=== PATIENT | female | born 1935 | race Caucasian/White ===

== ENCOUNTER 2016-07-13 10:44 | Emergency (ER) | payer MEDICARE ==
[2016-07-13 10:51] VITALS: BP 113/73
[2016-07-13] MEDS ORDERED: oxyCODONE TAB* 5 MG TAB PO ONE (12:50)
[2016-07-13 13:28] LABS: Urine Bacteria Absent (Absent); Urine Bilirubin Negative (Negative); Urine Glucose Negative (Negative); Urine Nitrite Negative (Negative)
--- NOTE | 2016-07-13 13:41 | RAD ---
Indication: Lumbar back pain acute on chronic affecting ambulation. Unknown for recent injury. Anticoagulated. Comparison: March 03, 2014 CT. Technique: Noncontrast CT lumbar sacral spine. Multiplanar reformation. 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 Minimal grade 1 degenerative L3-L4 retrolisthesis without significant change. Ankylosis at the L4-L5 disc level. Reference sagittal reformatted series there is an acute nondisplaced transverse fracture through the inferior aspect of the L4 vertebral body without definitive involvement of the posterior elements. Predisposing decreased bone density and 3.1 x 3.1 x 2.8 cm osseous hemangioma in the L4 vertebral body. No additional fracture evident. Small associated paravertebral hematoma RIGHT anterolateral measuring up to 0.8 cm AP by 2.6 cm transverse by 2.1 cm cephalocaudal. No additional retroperitoneal hematoma evident within the [id number]. Diffuse advanced degenerative spondylosis and facet joint osteoarthritis. T12-L1: Dorsal disc osteophyte complex results in only mild impression on the ventral margin of the thecal sac. L1-L2: Dorsal spondylitic ridging disc complex results in mild impression on the ventral margin of the thecal sac. L2-L3: Prominent dorsal osteophytosis and facet ligamentous hypertrophic arthropathy results in moderately severe acquired central canal stenosis without change. L3-L4: Prominent dorsal spondylitic ridging disc complexes and posterior element facet ligamentous hypertrophy results in severe acquired central canal stenosis without significant change. Spondylitic ridging and facet ligamentous hypertrophy results in mild bilateral foraminal stenosis. L4-L5: Severe facet ligamentous hypertrophic arthropathy results in mild alteration in the shape of the thecal sac. Mild impression on the ventral margin from RIGHT paracentral to RIGHT foraminal mild disc protrusion. Resulting mild acquired central canal stenosis. Mild RIGHT foraminal stenosis. L5-S1: Ankylosis. Negative for central canal or foraminal stenosis. IMPRESSION: 1. Acute or subacute nondisplaced transverse fracture through the inferior aspect of the L4 vertebral body without definitive involvement of the posterior elements. Predisposing decreased bone density and 3.1 x 3.1 x 2.8 cm osseous hemangioma in the L4 vertebral body. Small associated paravertebral hematoma RIGHT anterolateral measuring up to 0.8 cm AP by 2.6 cm transverse by 2.1 cm cephalocaudal. No additional fracture evident. No additional fracture evident. 2. 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 Results discussed with Dr. Moore 07/13/2016 1:37 PM EDT
[2016-07-13 14:16] LABS: Hematocrit 42 % (35-47); Hemoglobin 14.2 g/dl (12.0-16.0); Mean Corpuscular HGB Conc 34 g/dl (31-36); Mean Corpuscular Hemoglobin 32 pg (27-31); Mean Corpuscular Volume 93 fL (80-97); Mean Platelet Volume 9 um3 (7.4-10.4); Red Cell Distribution Width 13 % (10.5-15); White Blood Count 10.9 10^3/ul (3.5-10.8)
[2016-07-13 14:24] LABS: Add Diff/Slide Review? Slide Review Added; Comments Flag Yes
[2016-07-13 14:30] LABS: Albumin 3.8 g/dL (3.2-5.2); C Reactive Protein 30.06 mg/L (< 5.00); Calcium 9.8 mg/dL (8.6-10.3); EGFR African American 85.8 (>60); EGFR Non-African American 66.7 (>60); Globulin 3.3 g/dL (2-4); Potassium 4.1 mmol/L (3.5-5.0); Total Bilirubin 0.6 mg/dL (0.2-1.0); Total Protein 7.1 g/dL (6.4-8.9)
--- NOTE | 2016-07-13 15:05 | ED ---
I, Oh,Somario, scribed for Donald Moore MD on 07/13/16 at 1255 . Back Pain - HPI Summary HPI Summary: This 81 y/o female presents to ED for acute on chronic lower back pain since 3 days ago. Pain radiates down to BLE. Pain became worse since yesterday, and pt states that she wasn't able to lie down and slept in chair last night. Ambulation and weight bearing make it worse. She also states that knee bending make the pain worse, but pt is sitting in ED room with her knee bent without distress. APAP, tramadol, or flexeril does not make the pain better. Pt was not allowed ot rahel IBP due to her current coumadin. PMHx includes DM, HTN, and afib that is controlled with coumadin. Coumadin's last dosage change was 2 months ago and from 5 mg to 2.5 mg. Primary care involves Dr. Caputo and Robin. No known injury/strain/twist. No back surgery or neck surgery. No osteoporosis. - History of Current Complaint Chief Complaint: EDBackInjuryPain Stated Complaint: LOWER BACK PAIN Hx Obtained From: Patient, Medical Records Onset/Duration: Gradual Onset, Still Present Back Pain Location: Is Discrete @ - low back pain, Radiates To - RLE Pain Intensity: 10 Pain Scale Used: 0-10 Numeric - Allergies/Home Medications Allergies/Adverse Reactions: Allergies Allergy/AdvReac Type Severity Reaction Status Date / Time Nickel Allergy Mild Itching Verified 06/06/15 08:16 Levofloxacin [From Levaquin] Allergy Rash And Verified 06/09/15 10:11 Itching latex Allergy Mild Rash Uncoded 06/06/15 08:26 Home Medications: Home Medications Vitamin B-6 1 tab PO DAILY 07/13/16 [History Confirmed 07/13/16] PMH/Surg Hx/FS Hx/Imm Hx Endocrine/Hematology History: Reports: Hx Diabetes Cardiovascular History: Reports: Hx Hypertension, Other Cardiovascular Problems/ Disorders - Hx HTN Denies: Hx Congestive Heart Failure Respiratory History: Reports: Hx Sleep Apnea - Uses Cpap at home, Other Respiratory Problems/Disorders - sleep apnea GI History: Reports: Hx Gastroesophageal Reflux Disease, Other GI Disorders - Colitis History: Denies: Hx Renal Disease, Other Problems/Disorders Musculoskeletal History: Reports: Hx Arthritis, Other Musculoskeletal History - Left knee replacement Denies: Hx Tendonitis Sensory History: Reports: Hx Cataracts - LEFT EYE CURRENTLY, Hx Contacts or Glasses Denies: Hx Hearing Aid Opthamlomology History: Reports: Hx Cataracts - LEFT EYE CURRENTLY, Hx Contacts or Glasses Neurological History: Reports: Hx Migraine - IN PAST Denies: Other Neuro Impairments/Disorders - Cancer History Hx Chemotherapy: No Hx Radiation Therapy: No - Surgical History Surgery Procedure, Year, and Place: HERNIA [id number]/left knee [id number]/ [id number]/[place]. RIGHT EYE 2006 cataract, Left eye cataract 2012 Hx Anesthesia Reactions: Yes - EXTREME VERTIGO Infectious Disease History: No Infectious Disease History: Denies: Hx Clostridium Difficile, Hx Hepatitis, Hx Human Immunodeficiency Virus (HIV), Hx of Known/Suspected MRSA, Hx Shingles, Hx Tuberculosis, Hx Known/ Suspected VRE, Hx Known/Suspected VRSA, History Other Infectious Disease, Traveled Outside the in Last 30 Days - Family History Known Family History: Negative: Other - Breast CA - Social History Lives: With Family - lives with youngest daughter. Steps at home Alcohol Use: None Hx Substance Use: No Substance Use Type: Reports: None Hx Tobacco Use: No Smoking Status (MU): Never Smoked Tobacco Review of Systems Negative: Fever Positive: Abdominal Pain - secondary to chronic colitis, Diarrhea - secondary to colitis, controlled with immodium Negative: burning, dysuria, frequency Positive: Other - back pain Negative: Weakness All Other Systems Reviewed And Are Negative: Yes Physical Exam - Summary Physical Exam Summary: The patient is well-nourished in no acute distress and in no acute pain. The skin is warm and dry and skin color reflects adequate perfusion. HEENT: The head is normocephalic and atraumatic. The pupils are equal and reactive. The conjunctivae are clear and without drainage. Nares are patent and without drainage. Mouth reveals moist mucous membranes and the throat is without erythema and exudate. The external ears are intact. The ear canals are patent and without drainage. The tympanic membranes are intact. Neck is supple with full range of motion and non-tender. There are no carotid bruits. There is no neck vein distension. Respiratory: Chest is non-tender. Lungs are clear to auscultation and breath sounds are symmetrical and equal. Cardiovascular: Irregular heart rate, controlled. There is no murmur or rub auscultated. There is no peripheral edema. BLE pulse intact. Musculoskeletal: There is no back pain noted. Extremities are non-tender with full range of motion. There is good capillary refill. There is no peripheral edema or calf tenderness elicited. No bony process tenderness over spine. Positive tenderness inferior/superior PSIS. DTR intact on right patellar. No pain with passive knee flexion. Pain with active knee flexion. Negative Ronald's sign. Negative leg raise, ipsilaterally. Neurological: Patient is alert and oriented to person, place and time. The patient has symmetrical motor strength in all four extremities. Cranial nerves are grossly intact. Deep tendon reflexes are symmetrical and equal in all four extremities. Psychiatric: The patient has an appropriate affect and does not exhibit any anxiety or depression. Triage Information Reviewed: Yes Vital Signs On Initial Exam: Initial Vitals Temp Pulse Resp BP Pulse Ox 96.5 F 93 20 116/73 100 07/13/16 10:47 07/13/16 10:47 07/13/16 10:47 07/13/16 10:47 07/13/16 10:47 Vital Signs Reviewed: Yes Neck: Positive: Supple, Nontender Respiratory/Lung Sounds: Positive: Clear to Auscultation, Breath Sounds Present Cardiovascular: Positive: RRR, Pulses are Symmetrical in both Upper and Lower Extremities - [place] Coma Scale Coma Scale Total: 15 Diagnostics - Vital Signs Vital Signs Temp Pulse Resp BP Pulse Ox 07/13/16 10:49 96.5 F 85 20 113/73 100 07/13/16 10:47 96.5 F 93 20 116/73 100 - Laboratory Lab Results: Lab Results 07/13/16 07/13/16 07/13/16 Range/Units 11:45 14:09 14:09 WBC 10.9 H (3.5-10.8) 10^3/ul RBC 4.50 (4.0-5.4) 10^6/ul Hgb 14.2 (12.0-16.0) g/dl Hct 42 (35-47) % MCV 93 (80-97) fL MCH 32 H (27-31) pg MCHC 34 (31-36) g/dl RDW 13 (10.5-15) % Plt Count 186 (150-450) 10^3/ul MPV 9 (7.4-10.4) um3 Neut % (Auto) 44.2 (38-83) % Lymph % (Auto) 50.0 H (25-47) % [place] % (Auto) 5.0 (1-9) % Eos % (Auto) 0.4 (0-6) % Baso % (Auto) 0.4 (0-2) % Absolute Neuts (auto) 4.8 (1.5-7.7) 10^3/ul Absolute Lymphs (auto) 5.4 H (1.0-4.8) 10^3/ul Absolute Monos (auto) 0.5 (0-0.8) 10^3/ul Absolute Eos (auto) 0 (0-0.6) 10^3/ul Absolute Basos (auto) 0 (0-0.2) 10^3/ul Absolute Nucleated RBC 0.01 10^3/ul Nucleated RBC % 0.1 INR (Anticoag Therapy) 2.86 H (0.89-1.11) Sodium (133-145) mmol/L Potassium (3.5-5.0) mmol/L Chloride (101-111) mmol/L Carbon Dioxide (22-32) mmol/L Anion Gap (2-11) mmol/L BUN (6-24) mg/dL Creatinine (0.51-0.95) mg/dL Est GFR ( Amer) (>60) Est GFR (Non-Af Amer) (>60) BUN/Creatinine Ratio (8-20) Glucose (70-100) mg/dL Calcium (8.6-10.3) mg/dL Total Bilirubin (0.2-1.0) mg/dL AST (13-39) U/L ALT (7-52) U/L Alkaline Phosphatase (34-104) U/L C-Reactive Protein (< 5.00) mg/L Total Protein (6.4-8.9) g/dL Albumin (3.2-5.2) g/dL Globulin (2-4) g/dL Albumin/Globulin Ratio (1-3) Urine Color Yellow Urine Appearance Clear Urine pH 6.0 (5-9) Ur Specific [place] 1.013 (1.010-1.030) Urine Protein Negative (Negative) Urine Ketones Negative (Negative) Urine Blood Negative (Negative) Urine Nitrate Negative (Negative) Urine Bilirubin Negative (Negative) Urine Urobilinogen Negative (Negative) Ur Leukocyte Esterase Trace H (Negative) Urine WBC (Auto) Trace(0-5/hpf) (Absent) Urine RBC (Auto) 1+(3-5/hpf) H (Absent) Ur Squamous Epith Cells Present H (Absent) Urine Bacteria Absent (Absent) Urine Glucose Negative (Negative) Urine Ascorbic Acid * H (Negative) 07/13/16 Range/Units 14:09 WBC (3.5-10.8) 10^3/ul RBC (4.0-5.4) 10^6/ul Hgb (12.0-16.0) g/dl Hct (35-47) % MCV (80-97) fL MCH (27-31) pg MCHC (31-36) g/dl RDW (10.5-15) % Plt Count (150-450) 10^3/ul MPV (7.4-10.4) um3 Neut % (Auto) (38-83) % Lymph % (Auto) (25-47) % [place] % (Auto) (1-9) % Eos % (Auto) (0-6) % Baso % (Auto) (0-2) % Absolute Neuts (auto) (1.5-7.7) 10^3/ul Absolute Lymphs (auto) (1.0-4.8) 10^3/ul Absolute Monos (auto) (0-0.8) 10^3/ul Absolute Eos (auto) (0-0.6) 10^3/ul Absolute Basos (auto) (0-0.2) 10^3/ul Absolute Nucleated RBC 10^3/ul Nucleated RBC % INR (Anticoag Therapy) (0.89-1.11) Sodium 133 (133-145) mmol/L Potassium 4.1 (3.5-5.0) mmol/L Chloride 101 (101-111) mmol/L Carbon Dioxide 23 (22-32) mmol/L Anion Gap 9 (2-11) mmol/L BUN 23 (6-24) mg/dL Creatinine 0.82 (0.51-0.95) mg/dL Est GFR ( Amer) 85.8 (>60) Est GFR (Non-Af Amer) 66.7 (>60) BUN/Creatinine Ratio 28.0 H (8-20) Glucose 125 H (70-100) mg/dL Calcium 9.8 (8.6-10.3) mg/dL Total Bilirubin 0.60 (0.2-1.0) mg/dL AST 18 (13-39) U/L ALT 11 (7-52) U/L Alkaline Phosphatase 46 (34-104) U/L C-Reactive Protein 30.06 H (< 5.00) mg/L Total Protein 7.1 (6.4-8.9) g/dL Albumin 3.8 (3.2-5.2) g/dL Globulin 3.3 (2-4) g/dL Albumin/Globulin Ratio 1.2 (1-3) Urine Color Urine Appearance Urine pH (5-9) Ur Specific [place] (1.010-1.030) Urine Protein (Negative) Urine Ketones (Negative) Urine Blood (Negative) Urine Nitrate (Negative) Urine Bilirubin (Negative) Urine Urobilinogen (Negative) Ur Leukocyte Esterase (Negative) Urine WBC (Auto) (Absent) Urine RBC (Auto) (Absent) Ur Squamous Epith Cells (Absent) Urine Bacteria (Absent) Urine Glucose (Negative) Urine Ascorbic Acid (Negative) Result Diagrams: 07/13/16 14:09 07/13/16 14:09 Lab Statement: Any lab studies that have been ordered have been reviewed, and results considered in the medical decision making process. - CT L-spine CT Interpretation: Positive (See Comments) - 1. Acute or subacute nondisplaced transverse fracture through the inferior aspect of the L4 vertebral body without definitive involvement of the posterior elements. Predisposing decreased bone density and 3.1 x 3.1 x 2.8 cm osseous hemangioma in the L4 vertebral body. Small associated paravertebral hematoma RIGHT anterolateral measuring up to 0.8 cm AP by 2.6 cm transverse by 2.1 cm cephalocaudal. No additional fracture evident. No additional fracture evident. 2. 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 CT Interpretation Completed By: Radiologist Re-Evaluation - Re-Evaluation First Eval Re-Evaluation Time: 13:58 Change: Improved Comment: Dr. Moore in room to update pt and the eldest daugther on L-Spine CT studies. Hard copy of the report has been shared. Pain relieved after oxycodone. Second Eval Re-Evaluation Time: 14:43 Change: Unchanged Comment: Dr. Moore in room to share INR results with patient. Back Pain Course/Dx - Course Assessment/Plan: This 81 y/o female presents to ED for acute on chronic lower back pain since 3 days ago. Pain is worse with weight bearing, ambulation, and knee flexion. Pt is currently on coumadin with recent dose decrease. Upon examination pt was noted with negative Ronald's sign, negative bony tenderness over spinal process, and positive tenderness oversuperior/inferior PSIS, negative pain with passive knee flexion, and positive pain with active knee flexion. CT L-Spine was noted with traverse fraction of L4. INR of 2.86 was noted in bloodwork. Oxycodone was given after verifying any possible interaction with coumadin. Pt was discharged with oxycodone rx and f/u instruction with Dr. Caputo and Dr. Mota. - Diagnoses Differential Diagnosis/HQI/PQRI: Positive: Arthritis, Fracture, Herniated Disc, Other - retroperitoneal hematoma Provider Diagnoses: Lumbar vertebral fracture, CHANcE FRACTURE - Provider Notifications Discussed Care of Patient With: Dr. Ibrahim at 1335 PM Discharge - Discharge Plan Condition: Stable Disposition: HOME Prescriptions: oxyCODONE TAB* [Roxycodone TAB 5 mg*] 5 mg PO Q6H PRN #28 tab MDD 4 PRN Reason: pain Patient Education Materials: Oxycodone/Acetaminophen (By mouth), Back Pain (ED) Referrals: Jared Caputo MD [Primary Care Provider] - 2 Days Hilton Mota MD [Medical Doctor] - 2 Days Additional Instructions: Consider physical therapy. The documentation as recorded by the Corey sharp Soohyun accurately reflects the service I personally performed and the decisions made by , Donald Moore MD.
== END 2016-07-13 15:10 | disposition home or self-care (01) ==
LOC: ED 10:44
DX: M54.5 Low back pain (principal); R10.9 Unspecified abdominal pain; R19.7 Diarrhea, unspecified; K52.9 Noninfective gastroenteritis and colitis, unspecified; S32.049A Unspecified fracture of fourth lumbar vertebra, initial encounter for closed fracture; X58.XXXA Exposure to other specified factors, initial encounter; Y93.9 Activity, unspecified; Y92.9 Unspecified place or not applicable; Z79.01 Long term (current) use of anticoagulants
CPT/HCPCS: 36415; 72131; 80053; 81003; 81015; 85025; 85610; 86140; 87086; 99282; A9270-GY

== ENCOUNTER 2017-04-27 21:33 | Emergency (ER) | payer MEDICARE ==
[2017-04-27] MEDS ORDERED: Ondansetron INJ* 2 MG/ML VIAL IV ONE (22:17)
[2017-04-27] MEDS ORDERED: NS 0.9% 1000 ML* 1,000 ML IV ONE (22:17)
[2017-04-27] MEDS ORDERED: Morphine INJ* 2 MG/ML 1 ML CARPUJECT IV ONE (22:17)
[2017-04-27 22:45] LABS: ABS Lymphocytes 5.2 10^3/ul (1.0-4.8); Hematocrit 42 % (35-47); Hemoglobin 14.5 g/dl (12.0-16.0); Mean Corpuscular HGB Conc 35 g/dl (31-36); Mean Corpuscular Hemoglobin 33 pg (27-31); Mean Corpuscular Volume 93 fL (80-97); Mean Platelet Volume 9 um3 (7.4-10.4); Platelet Count 177 10^3/ul (150-450); Red Blood Count 4.45 10^6/ul (4.0-5.4); Red Cell Distribution Width 13 % (10.5-15)
[2017-04-27 23:02] LABS: EGFR Non-African American 53.1 (>60)
[2017-04-27 23:08] LABS: INR 2.94 (0.77-1.02)
[2017-04-27] MEDS ORDERED: Iodixanol* (CONTRAST) 320 MG/ML 100 ML SDV IV ONE (23:09)
[2017-04-27 23:28] LABS: ABS Basophils 0 10^3/ul (0-0.2); ABS Eosinophils 0 10^3/ul (0-0.6); ABS Monocytes 0.5 10^3/ul (0-0.8); ABS Neutrophils 7.2 10^3/ul (1.5-7.7); ABS Nucleated RBC 0 10^3/ul; Eosinophil % 0.1 % (0-6); Lymphocyte % 40.5 % (25-47); Nucleated Red Blood Cells % 0.1
--- NOTE | 2017-04-28 02:16 | ED ---
Olivia Wilson Thomas, scribed for Misbah Ko MD on 04/27/17 at 2232 . Complex/Multi-Sys Presentation - HPI Summary HPI Summary: The patient is an 81 year old female who was putting up Easter decorations at 17 :00 when she had an accidental fall and was unable to get up from the floor until her daughter arrived at 21:00. She complains of bilateral knee pain, nausea, and bilateral rib pain (R>L) that is aggravated by breathing. She did not have loss of consciousness. She took meclizine at home. She is on Coumadin for A-Fib. - History Of Current Complaint Chief Complaint: EDExtremityLower Time Seen by Provider: 04/27/17 21:41 Hx Obtained From: Patient Onset/Duration: Lasting Hours - onset today at 17:00, Still Present Timing: Constant Severity Currently: Moderate Severity Initially: Moderate Location: Pain At: - bilateral knee pain, bilateral rib pain Aggravating Factor(s): Breathing Alleviating Factor(s): None Associated Signs And Symptoms: Positive: Other - Bilateral knee pain, nausea, bilateral rib pain; NEGATIVE: LOC - Allergies/Home Medications Allergies/Adverse Reactions: Allergies Allergy/AdvReac Type Severity Reaction Status Date / Time MS Nickel [Nickel] Allergy Mild Itching Verified 04/01/17 15:31 MS Amoxicillin Allergy Unknown Verified 04/01/17 15:31 [From Augmentin] Reaction Details MS Clavulanic Acid Allergy Unknown Verified 04/01/17 15:31 [From Augmentin] Reaction Details MS Levofloxacin Allergy Rash And Verified 04/01/17 15:31 [From Levaquin] Itching latex Allergy Mild Rash Uncoded 04/01/17 15:31 PMH/Surg Hx/FS Hx/Imm Hx Endocrine/Hematology History: Reports: Hx Diabetes Cardiovascular History: Reports: Hx Aneurysm, Hx Atrial Fibrillation, Hx Hypertension, Other Cardiovascular Problems/Disorders - atrial fibrillation Denies: Hx Congestive Heart Failure Respiratory History: Reports: Hx Sleep Apnea - Uses Cpap at home, Other Respiratory Problems/Disorders - sleep apnea GI History: Reports: Hx Gastroesophageal Reflux Disease, Hx Hiatal Hernia, Other GI Disorders - Colitis History: Denies: Hx Renal Disease, Other Problems/Disorders Musculoskeletal History: Reports: Hx Arthritis, Hx Back Problems, Other Musculoskeletal History - Left knee replacement Denies: Hx Osteoporosis, Hx Tendonitis Sensory History: Reports: Hx Cataracts - LEFT EYE CURRENTLY, Hx Contacts or Glasses, Hx Hearing Problem Denies: Hx Hearing Aid Opthamlomology History: Reports: Hx Cataracts - LEFT EYE CURRENTLY, Hx Contacts or Glasses Neurological History: Reports: Hx Migraine - IN PAST Denies: Other Neuro Impairments/Disorders - Cancer History Hx Chemotherapy: No Hx Radiation Therapy: No - Surgical History Surgery Procedure, Year, and Place: HERNIA [id number]/left knee [id number]/ [id number]/[place]. RIGHT EYE 2006 cataract, Left eye cataract 2012 Hx Anesthesia Reactions: Yes - EXTREME VERTIGO Infectious Disease History: No Infectious Disease History: Denies: Hx Clostridium Difficile, Hx Hepatitis, Hx Human Immunodeficiency Virus (HIV), Hx of Known/Suspected MRSA, Hx Shingles, Hx Tuberculosis, Hx Known/ Suspected VRE, Hx Known/Suspected VRSA, History Other Infectious Disease, Traveled Outside the [place] in Last 30 Days - Family History Known Family History: Negative: Other - Breast CA - Social History Alcohol Use: None Hx Substance Use: No Substance Use Type: Reports: Prescribed Hx Tobacco Use: No Smoking Status (MU): Never Smoked Tobacco Have You Smoked in the Last Year: No Review of Systems Negative: Fever Positive: Nausea Positive: Other - Bilateral knee pain, bilateral rb pain Neurological: Negative - LOC All Other Systems Reviewed And Are Negative: Yes Physical Exam - Summary Physical Exam Summary: VITAL SIGNS: Reviewed. GENERAL: Patient is a well-developed and nourished FEMALE who is lying comfortable in the stretcher. Patient is not in any acute respiratory distress. HEAD AND FACE: No signs of trauma. No ecchymosis, hematomas or skull depressions. No sinus tenderness. EYES: PERRLA, EOMI x 2, No injected conjunctiva, no nystagmus. EARS: Hearing grossly intact. Ear canals and tympanic membranes are within normal limits. MOUTH: Oropharynx within normal limits. NECK: Supple, trachea is midline, no adenopathy, no JVD, no carotid bruit, no c- spine tenderness, neck with full ROM. CHEST: Symmetric, no tenderness at palpation LUNGS: Clear to auscultation bilaterally. No wheezing or crackles. CVS: Regular rate and rhythm, S1 and S2 present, no murmurs or gallops appreciated. ABDOMEN: Soft. She has right upper quadrant tenderness. No signs of distention. No rebound no guarding, and no masses palpated. Bowel sounds are normal. EXTREMITIES: There is mild swelling of the left knee with good ROM. FROM in all other major joints, no edema, no cyanosis or clubbing. NEURO: Alert and oriented x 3. No acute neurological deficits. Speech is normal and follows commands. SKIN: Dry and warm Triage Information Reviewed: Yes Vital Signs On Initial Exam: Initial Vitals Temp Pulse Resp BP Pulse Ox 97.0 F 92 18 163/92 92 04/27/17 21:35 04/27/17 21:35 04/27/17 21:35 04/27/17 21:35 04/27/17 21:35 Vital Signs Reviewed: Yes Diagnostics - Vital Signs Vital Signs Temp Pulse Resp BP Pulse Ox 04/27/17 22:00 78 142/77 90 04/27/17 21:42 79 95 04/27/17 21:40 163/92 04/27/17 21:35 97.0 F 92 18 163/92 92 - Laboratory Result Diagrams: 04/27/17 22:30 04/27/17 22:30 Lab Statement: Any lab studies that have been ordered have been reviewed, and results considered in the medical decision making process. - Radiology Knee XR Xray Interpretation: No Acute Changes - Negative for fracture. Radiology Interpretation Completed By: ED Physician - CT CT Chest/Abdomen/Pelvis CT Interpretation: No Acute Changes - No acute hepatic injury. Mediastinal lymph node enlargement of uncertain etiology possibly related to recent pulmonary inflammation. Cholecystectomy. Dr. Ko has reviewed this report. CT Interpretation Completed By: Radiologist - EKG 22:04 Cardiac Rate: NL EKG Rhythm: Atrial Fibrillation - at 75 BPM EKG Interpretation: Normal axis. No acute ischemic change. Nonspecific T-wave changes. Complex Multi-Symp Course/Dx Assessment/Plan: The patient is an 81 year old female who was putting up Easter decorations at 17:00 when she had an accidental fall and was unable to get up from the floor until her daughter arrived at 21:00. She complains of bilateral knee pain, nausea, and bilateral rib pain (R>L) that is aggravated by breathing. In the ED, she was given IV fluids, morphine, and Zofran. Knee XR is negative for fracture. CT Chest/Abdomen/Pelvis shows No acute hepatic injury. Mediastinal lymph node enlargement of uncertain etiology possibly related to recent pulmonary inflammation. Cholecystectomy. The patient will be discharged home to follow up with primary care. - Diagnoses Provider Diagnoses: Chest wall contusion Discharge - Discharge Plan Condition: Stable Disposition: HOME Prescriptions: oxyCODONE/Acetamin 5/325 MG* [Percocet 5/325 TAB*] 1 tab PO Q6H PRN #14 tab MDD 4 PRN Reason: Pain Patient Education Materials: Contusion in Adults (ED) Referrals: Celina Howell MD [Primary Care Provider] - 3 Days Additional Instructions: Follow up with your primary care physician in three days. Return to the emergency department for any new or worsening symptoms. The documentation as recorded by the Olivia sharp Thomas accurately reflects the service I personally performed and the decisions made by , Misbah Ko MD.
[2017-04-28 02:43] VITALS: BP 121/76
--- NOTE | 2017-04-28 07:39 | RAD ---
INDICATION: Left knee injury. TECHNIQUE: 4 views of the left knee were obtained. FINDINGS: The patient is status post total left knee replacement surgery. The bones and prostheses are in normal alignment. No acute fracture or loosening is seen. IMPRESSION: STATUS POST TOTAL LEFT KNEE REPLACEMENT SURGERY. NO FRACTURE IS SEEN. IF THE PATIENT'S SYMPTOMS PERSIST RECOMMEND FOLLOW-UP IMAGING.
--- NOTE | 2017-04-28 08:11 | RAD ---
INDICATION: Fall, trauma. COMPARISON: Comparison is made with a prior CT of the chest from May 15, [address] of the chest, abdomen and pelvis from March 03, 2014. TECHNIQUE: A CT scan of the chest, abdomen and pelvis was performed with intravenous and without oral contrast following intravenous injection of 99 ml of Visipaque 320 nonionic contrast. Contiguous axial sections were obtained from the lung apices through the symphysis pubis. Images were reconstructed in the coronal and sagittal planes. FINDINGS: There is mild dependent bilateral lower lobe subsegmental atelectasis. There is a small 3 mm pulmonary nodule present in the right middle lobe on image #28 which is unchanged from the prior 2 exams and therefore most consistent with a benign process. The lungs are otherwise clear. No pleural effusion or pneumothorax is seen. There are slightly enlarged lymph nodes measuring up to 1.5 cm in size in the right paratracheal, pretracheal, subcarinal and aorticopulmonary window regions which are unchanged from the prior studies. There are slightly enlarged hilar lymph nodes measuring up to 1.3 cm in diameter which are also unchanged. The heart is within normal limits in size. No pericardial effusion is present. There is mild ectasia of the descending thoracic aorta measuring up to 4.0 cm in transverse dimension which is unchanged. There is moderate calcific plaque present. The liver is normal in size. The patient is status post cholecystectomy. There is mild intra and extrahepatic ductal distention which appears slightly more prominent than on the prior study. The spleen is mildly enlarged and unchanged. The pancreas appears to be within normal limits. The adrenal glands and kidneys are normal in size. There is bilateral lateral renal cortical thinning. There are couple small renal cysts present within the left kidney. No hydronephrosis is present. The aorta is normal in caliber and there is moderate calcific plaque present. There are couple mildly prominent retroperitoneal lymph nodes present in the lower left periaortic region and in the right internal iliac region measuring up to 1.1 cm transverse dimension which are unchanged. The stomach, small and large bowel appear nondistended. There is moderate descending and sigmoid diverticulosis without evidence for diverticulitis or colitis. There is a mesh graft in the anterior abdominal wall without evidence for recurrent hernia. No free intraperitoneal air or fluid is seen. There is partial fusion of the lower dorsal and lower lumbar spine. No fracture is seen. IMPRESSION: 1. NO EVIDENCE FOR ACUTE FINDING. 2. MILDLY ENLARGED MEDIASTINAL AND RETROPERITONEAL LYMPH NODES, UNCHANGED. 3. STATUS POST CHOLECYSTECTOMY MILD INTRA- AND EXTRAHEPATIC DUCTAL DISTENTION SLIGHTLY PROGRESSED. 4. MILD SPLENOMEGALY, UNCHANGED.
== END 2017-04-28 02:50 | disposition home or self-care (01) ==
LOC: ED 21:33
DX: S20.219A Contusion of unspecified front wall of thorax, initial encounter (principal); I48.91 Unspecified atrial fibrillation; Z79.01 Long term (current) use of anticoagulants; Z88.0 Allergy status to penicillin; M25.562 Pain in left knee; M25.561 Pain in right knee; R11.0 Nausea; W19.XXXA Unspecified fall, initial encounter; Y92.9 Unspecified place or not applicable; Z87.19 Personal history of other diseases of the digestive system; Z86.79 Personal history of other diseases of the circulatory system
CPT/HCPCS: 36415; 71260; 74177; 80053; 82150; 82550; 83605; 83690; 85025; 85610; 85730; 93005; 99284; J2270; J2405; Q9967

== ENCOUNTER 2017-11-15 19:54 | Emergency (ER) | payer MEDICARE ==
--- NOTE | 2017-11-15 20:07 | ED ---
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 She denies feeling dizzy prior to the fall. Associated sx: mild neck pain, nausea. Pt was experiencing vertigo after the fall, so she took 25 mg Meclizine. PMHx: vertigo for approx 25 years; 4cm thoracic aneurism; Coumadin (per pt, INR was nml last week); she uses a cpap machine for sleep apnea. She's unsure of the date of her last tetanus shot. 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 present Mechanism Of Injury: Fall From A Standing Position Onset/Duration: Traumatic - fall, Resolved Onset of Pain: Immediate, Prior to Arrival Severity Currently: Moderate Severity Initially: Moderate Pain Intensity: 7 Pain Scale Used: 0-10 Numeric Location of Head Injury: Frontal Location: Discrete At: - forehead Associated Signs And Symptoms: Neck Pain - mild, Nausea, Other: - dizziness after fall Anticoagulant Therapy: Coumadin - Allergies/Home Medications Allergies/Adverse Reactions: Allergies Allergy/AdvReac Type Severity Reaction Status Date / Time amoxicillin [From Augmentin] Allergy Unknown Verified 11/15/17 20:02 Reaction Details clavulanic acid Allergy Unknown Verified 11/15/17 20:02 [From Augmentin] Reaction Details latex Allergy Rash Verified 11/15/17 20:02 levofloxacin [From Levaquin] Allergy Rash And Verified 11/15/17 20:02 Itching nickel Allergy Itching Verified 11/15/17 20:02 PMH/Surg Hx/FS Hx/Imm Hx Previously Healthy: No Endocrine/Hematology History: Reports: Hx Diabetes Cardiovascular History: Reports: Hx Aneurysm, Hx Atrial Fibrillation, Hx Hypertension, Other Cardiovascular Problems/Disorders - atrial fibrillation Denies: Hx Congestive Heart Failure Respiratory History: Reports: Hx Sleep Apnea - Uses Cpap at home, Other Respiratory Problems/Disorders - sleep apnea GI History: Reports: Hx Gastroesophageal Reflux Disease, Hx Hiatal Hernia, Other GI Disorders - Colitis History: Denies: Hx Dialysis, Hx Renal Disease, Other Problems/Disorders Musculoskeletal History: Reports: Hx Arthritis, Hx Back Problems, Other Musculoskeletal History - Left knee replacement Denies: Hx Osteoporosis, Hx Tendonitis Sensory History: Reports: Hx Cataracts - LEFT EYE CURRENTLY, Hx Contacts or Glasses, Hx Hearing Problem Denies: Hx Hearing Aid Opthamlomology History: Reports: Hx Cataracts - LEFT EYE CURRENTLY, Hx Contacts or Glasses Neurological History: Reports: Hx Migraine - IN PAST Denies: Other Neuro Impairments/Disorders - Cancer History Hx Chemotherapy: No Hx Radiation Therapy: No - Surgical History Surgery Procedure, Year, and Place: HERNIA [id number]/left knee [id number]/ [id number]. RIGHT EYE 2006 cataract, Left eye cataract 2012 Hx Anesthesia Reactions: Yes - EXTREME VERTIGO Infectious Disease History: No Infectious Disease History: Denies: Hx Clostridium Difficile, Hx Hepatitis, Hx Human Immunodeficiency Virus (HIV), Hx of Known/Suspected MRSA, Hx Shingles, Hx Tuberculosis, Hx Known/ Suspected VRE, Hx Known/Suspected VRSA, History Other Infectious Disease, Traveled Outside the in Last 30 Days - Family History Known Family History: Negative: Other - Breast CA - Social History Occupation: Retired Lives: With Family Alcohol Use: None Hx Substance Use: No Substance Use Type: Reports: None Hx Tobacco Use: No Smoking Status (MU): Never Smoked Tobacco Have You Smoked in the Last Year: No Review of Systems Positive: Nausea Positive: Arthralgia - mild neck pain Skin: Other - pos: forehead abrasion Neurological: Other - pos: dizziness All Other Systems Reviewed And Are Negative: Yes Physical Exam - Summary Physical Exam Summary: VITAL SIGNS: Reviewed. GENERAL: Patient is a well-developed and nourished FEMALE who is lying comfortable in the stretcher. Patient is not in any acute respiratory distress. HEAD AND FACE: Localized swelling over forehead with diffuse skin abrasion, no active bleeding. EYES: PERRLA, EOMI x 2, No injected conjunctiva, no nystagmus. EARS: Hearing grossly intact. Ear canals and tympanic membranes are within normal limits. MOUTH: Oropharynx within normal limits. NECK: Supple, trachea is midline, no adenopathy, no JVD, no carotid bruit, no c- spine tenderness, neck with full ROM. CHEST: Symmetric, no tenderness at palpation LUNGS: Clear to auscultation bilaterally. No wheezing or crackles. CVS: Regular rate and rhythm, S1 and S2 present, no murmurs or gallops appreciated. ABDOMEN: Soft, non-tender. Distended. No rebound no guarding, and no masses palpated. Bowel sounds are normal. EXTREMITIES: FROM in all major joints, no edema, no cyanosis or clubbing. NEURO: Alert and oriented x 3. No acute neurological deficits. Speech is normal and follows commands. SKIN: Dry and warm. There is a 1 cm x 0.5 cm lac over L 1st toe, minimal bleeding. Triage Information Reviewed: Yes Vital Signs On Initial Exam: Initial Vitals Temp Pulse Resp BP Pulse Ox 96.2 F 97 18 168/100 96 11/15/17 20:00 11/15/17 20:00 11/15/17 20:00 11/15/17 20:00 11/15/17 20:00 Vital Signs Reviewed: Yes Procedures - Laceration/Wound Repair 1 Location: Other - L first toe Description: Linear Anesthesia: Local, 1.0%, Lido Length, Depth and Shape: 1cm x 0.5cm Betadine Prep?: No Irrigated w/ Saline (ccs): 50 Laceration/Wound Explored: clean Closure: Single Layer Suture Type: Nylon - 4-0 Number of Sutures: 2 Layer Closure?: No Sterile Dressing Applied?: Yes Diagnostics - Vital Signs Vital Signs Temp Pulse Resp BP Pulse Ox 11/15/17 20:03 90 96 11/15/17 20:02 93 168/100 96 11/15/17 20:00 96.2 F 97 18 168/100 96 - Laboratory Result Diagrams: 11/15/17 20:38 11/15/17 20:38 Lab Statement: Any lab studies that have been ordered have been reviewed, and results considered in the medical decision making process. - CT Head wo Contrast CT Interpretation: Positive (See Comments) - IMPRESSION: 1. No acute intracranial findings. 2. Subcutaneous hematoma of L forehead. ED physician has reviewed this imaging report. CT Interpretation Completed By: Radiologist C-SPINE wo Contrast CT Interpretation: No Acute Changes - IMPRESSION: 1. No acute findings. 2. Significant body demineralization. Degenerative change as above. ED physician has reviewed this imaging report. CT Interpretation Completed By: Radiologist Head CT Interpretation: Positive (See Comments) - IMPRESSION: 1. No acute intracranial findings. 2. Subcutaneous hematoma of L forehead. ED physician has reviewed this imaging report. CT Interpretation Completed By: Radiologist Head Injury Course/Dx Course Of Treatment: Pt is an 82 y/o F presenting with head abrasion after fall due to tripping. Asscoiated sx: mild neck pain, nausea, some dizziness for which she took Meclizine 25 mg due to her PMHx vertigo. Head CT and C-Spine CT were negative for acute findings. Pt also has 1cm x 0.5cm lac to L first toe which was repaired with 2 sutures, 1 layer, nylon 4-0. Pt was able to ambulate without assistance. She complains of soreness but has pain meds at home. She was instructed to have sutures removed in 10 days. - Diagnoses Provider Diagnoses: Facial contusion, Toe laceration, Vertigo Discharge - Sign-Out/Discharge Documenting (check all that apply): Patient Departure - DC - Discharge Plan Condition: Stable Disposition: HOME Patient Education Materials: Care For Your Stitches (ED), Laceration (ED), Fall Prevention for Older Adults (ED) Referrals: Celina Howell MD [Primary Care Provider] - Additional Instructions: RETURN TO THE EMERGENCY DEPARTMENT FOR CHANGING OR WORSENING SYMPTOMS. The sutures can be removed in 10 days at your primary care provider's office, Urgent Care or at the Emergency Department. - Attestation Statements Document Initiated by Scribe: Yes Documenting Scribe: Nadeen Hernandez Provider For Whom Scribe is Documenting (Include Credential): Dr. Sherif Ko MD Scribe Attestation: Steve, Nadeen Hernandez scribed for Dr. Sherif Ko MD on 11/15/17 at 2209.
--- OUTSIDE RECORDS SUMMARY | 2017-11-15 20:10 | XMS REPORT ---
:1935 External Reference #:[id number] Author Organization [employer] Address [address] [place] [address] [place] [address] Phone [phone] Care Team Providers Name Role Phone Celina Howell MD Primary Care Physician Unavailable Payers Type Date Identification Numbers Payment Provider Subscriber Commercial Policy Number: [id number] [employer]g/Todays Options Margret Pack PayID: [id number] [address] [address] Attn: [place] [address] Advance Directives Type Date Description Status Comment Other Directive 04/25/2017 Health Care Proxy Current and Verified Problems Date Description Provider Status Onset: 04/03/2014 Atrial fibrillation Gumaro Kelly M.D., Active CARMINE, FELIZ Onset: 03/16/2002 Obstructive sleep apnea of adult Rosalinda Drake DNP, RN, Active 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 Active Onset: 08/26/2017 Dyspnea Gumaro Kelly M.D., Active CARMINE, FELIZ Family History Date Family Member(s) Problem(s) Comments General Father [place] 66, 67. 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 Use Denies alcohol use Smoking Patient has never smoked Recreational Drug Use Denies Drug Use Daily Caffeine Consumes on average 2 cups of decaff coffee per day Exercise Type/Frequency Exercises rarely Allergies, Adverse Reactions, Alerts Date Description Reaction Status Severity Comments 03/14/2014 Augmentin active diarrhea 03/14/2014 Latex active 04/30/2016 Levaquin Urticaria active Moderate to Severe 08/26/2017 Nickel itch and break out in a active Moderate rash Medications Medication Date Status Form Strength Qnty SIG Indications Ordering Provider Loperamide Active Tablets 2mg Celina HCL 018 Delfina Howell Meclizine HCL Active Tablets 12.5mg 60tabs 1 tab by Isidoro Evans mouth bid HYDRAULIC CORRUGATING MACHINE OPERATOR Rolling Active 1units Use while M48.45xS Acosta Evans With 018 ambulating HYDRAULIC CORRUGATING MACHINE OPERATOR Seat M25.572 M79.671 Hydrochlorothiazide 04/20/2017 Active Tablets 50mg 90tabs 1 by mouth Chino every day ARIAN Peraza Atenolol 04/01/2017 Active Tablets 50mg 60tabs 1 by mouth [place] twice day ARIAN Peraza Tricor 03/25/2017 Active Tablets 145mg 90tabs 1 by mouth [place] every day ARIAN Peraza Lisinopril 03/25/2017 Active Tablets 40mg 90tabs 1 by mouth [place] every day ARIAN Peraza Metformin HCL 02/13/2017 Active Tablets 500mg 180tabs 1 by mouth Chino twice a day ARIAN Peraza Cyclobenzaprine HCL 02/02/2017 Active Tablets 5mg 30tabs take one [place] tablet by ARIAN Peraza mouth every 8 hours prn. Microlet Lancets 01/29/2017 Active Misc 100unit twice a day Celina s and as eliazar Howell M.D. Contour Test Strips 01/29/2017 Active 100unit twice daily Chino s and as ARIAN Peraza directed Coumadin 11/27/2016 Active Tablets 2.5mg 30tabs take 1 Chino tablet 5 ARIAN Peraza days a week and 1/2 tablet 2 days a week or as directed. Flonase Active Suspension 50mcg 1units 2 Janett /Act intranasal Varn, N.P. puff to each nostril daily (dec to june) Chromium Picolinate Active Tablets 200mc once daily Unknown Fortified g Calcium 600+D Active Tablets 600-4 60tabs 1 by mouth Unknown 00mg- once a day Unit Glucosamine Active Capsules 250-2 twice daily Unknown Chondroitin Collagen 6.67m g Folic Acid Active Tablets 1mg 90tabs 1 by mouth Unknown every day Lactobacillus Extra Active Capsules 90caps 1 by mouth Unknown Strength every day Garlic Active Capsules 705mg 1 daily Unknown Vitamin B Complex Active Tablets 1 by mouth Unknown every day Vitamin D-400 Active Tablets 400Un 60tabs 1 by mouth Unknown it every day Imodium A-D Active Tablets 2mg take 1 Tab Unknown twice a day. Magnesium Oxide Active Tablets 250mg 1 by mouth Unknown every day Probiotic Active Capsules 1 by mouth Unknown every day Fish Oil Active Capsules 1000m 2 by mouth Unknown g every day Cpap Active Device for use Unknown while sleeping Cpap Mask And Active Device cpap Unknown Supplies supplies - headgear, cushion, tubing, filters, for sleep apnea dx 780.57 Percocet Active Tablets 5-325 1-2 by Hernandez, mg mouth every Yina, 4-6 hours CIGARETTE MAKING MACHINE CATCHER-BC as needed pain Omeprazole Active Capsules DR 20mg 30caps 1 by mouth Chino every day ARIAN Peraza Multivitamin Adult Active Tablets 1 by mouth Unknown every day Vitamin C Active Capsules 500mg 1 by mouth Unknown every day Vitamin B6 Active daily Unknown Biofreeze Active Gel 4% apply to Unknown affected area 2-3 times a day as need as needed Dynament Active topical Unknown Fluticasone Active Suspension 50mcg 31.6ml 2 sprays [place] Propionate /Act each ARIAN Peraza nostril once daily Diclofenac Sodium Active Gel 1% as needed Yina Hernandez, CIGARETTE MAKING MACHINE CATCHER-BC Amoxicillin Active Capsules 500mg take 4 Unknown pills 1 hour before dental procedure Xifaxan 07/21/2017 - Hx Tablets 550mg 42tabs 1 PO tid x K Celina 10/26/2017 14 days (Pt 5 Cotton, not taking) 2 M.D. . 8 3 9 Lidocaine 05/01/2017 - Hx Ointment 5% 50units apply to M Chino 08/25/2017 painful 8 ARIAN Peraza areas three 9 times a day . as needed. 8 x 8 Diclofenac Sodium 02/12/2017 - Hx Gel 1% 100gm apply 2 M Greenup 04/10/2017 grams to 2 ARIAN Peraza affected 5 area twice . daily 5 7 2 Metformin HCL 10/08/2016 - Hx Tablets 1000m 60tabs 1 tabs in [place] 02/13/2017 g the morning ARIAN Peraza 1 tab evening Oxycodone HCL 10/08/2016 - Hx Tablets 10mg 40tabs take one S Greenup 04/10/2017 tablet by 3 ARIAN Peraza mouth every 2 6 hours as . needed for 0 pain; 4 maximum 9 daily D dose=4 Cholestyramine 10/25/2015 - Hx Packet 4gm 1 packet Unknown 10/21/2016 twice a day Melatonin 10/23/2015 - Hx Capsules 1mg 30caps 1-2 G Rosalinda 10/21/2016 capsules 1 4 Drake, hour before 7 DNP, RN, bed if . CIGARETTE MAKING MACHINE CATCHER- needed 0 0 Coumadin - Hx Tablets 5mg 45tabs 1/2 tablet Greenup 11/27/2016 daily or as ARIAN Peraza directed Aspir-Low - Hx Tablets DR 81mg 30tabs 1 by mouth Unknown 04/25/2014 every day Sertraline HCL - Hx Tablets 25mg 1 by mouth Unknown 04/02/2014 every day Magnesium Oxide - Hx Tablets 250mg 30tabs 1 by mouth Unknown 10/17/2015 twice a day Flexeril - Hx Tablets 5mg 1 tab by Unknown 10/21/2016 mouth three times a day as needed spasm Medications Administered in Office Medication Date Status Form Strength Qnty SIG Indications Ordering Provider Inj, Administered Injection Gumaro Hernandez Regadenoson, 018 Kelly, 0.1 MG M.D., FACC, FASNC Technetium TC Administered Injection Gumaro Hernandez 99M 018 Kelly, Tetrofosmin, MChelaD., FACC, Per Unit Dose FASNC Up To 40 Millicuries Influenza,Unsp Administered Injection Unknown ecified 017 Inj, Administered Injection Gumaro Hernandez Regadenoson, 015 Kelly, 0.1 MG M.D., FACC, FASNC Technetium TC Administered Injection Gumaro Hernandez 99M 015 Kelly, Tetrofosmin, M.D., FACC, Per Unit Dose FASNC Up To 40 Millicuries Technetium TC Administered Injection Ica Nuclear 99M 015 Schedule Tetrofosmin, Per Unit Dose Up To 40 Millicuries Vital Signs Date Vital Result Comment 10/27/2017 Height 62 inches 5'2" Weight 184.00 lb Heart Rate 90 /min BP Systolic Sitting 122 mmHg Lue reg cuff BP Diastolic Sitting 84 mmHg Lue reg cuff Respiratory Rate 22 /min O2 % BldC Oximetry 98 % On Ra BMI (Body Mass Index) 33.7 kg/m2 08/26/2017 Height 62 inches 5'2" Weight 189.31 lb Heart Rate 84 /min BP Systolic 150 mmHg BP Diastolic 88 mmHg BP Systolic Sitting 142 mmHg BP Diastolic Sitting 88 mmHg Respiratory Rate 16 /min BMI (Body Mass Index) 34.6 kg/m2 Ejection Fraction 55-60% 04/17/2017 echo 07/21/2017 Height 62 inches 5'2" Weight 185.00 lb Heart Rate 92 /min BP Systolic Sitting 105 mmHg BP Diastolic Sitting 70 mmHg Body Temperature 96.8 F Pain Level 10 foot Right O2 % BldC Oximetry 97 % BMI (Body Mass Index) 33.8 kg/m2 07/10/2017 Height 62 inches 5'2" Weight 187.25 lb Heart Rate 87 /min BP Systolic 129 mmHg BP Diastolic 88 mmHg Body Temperature 96.1 F O2 % BldC Oximetry 92 % BMI (Body Mass Index) 34.2 kg/m2 05/01/2017 Weight 189.50 lb Heart Rate 79 /min BP Systolic 124 mmHg BP Diastolic 74 mmHg Body Temperature 96.1 F O2 % BldC Oximetry 97 % 04/21/2017 Height 65.5 inches 5'5.50" Weight 193.00 lb Heart Rate 96 /min BP Systolic Sitting 134 mmHg Lue reg cuff BP Diastolic Sitting 78 mmHg Lue reg cuff BP Systolic Standing 128 mmHg Lue BP Diastolic Standing 74 mmHg Lue Respiratory Rate 16 /min BMI (Body Mass Index) 31.6 kg/m2 Ejection Fraction 55-60% 04/17/17 04/10/2017 Height 65.5 inches 5'5.50" Weight 191.00 lb Heart Rate 90 /min BP Systolic 120 mmHg BP Diastolic 70 mmHg O2 % BldC Oximetry 97 % BMI (Body Mass Index) 31.3 kg/m2 02/20/2017 Height 65.5 inches 5'5.50" Weight 190.00 lb BP Systolic 124 mmHg BP Diastolic 72 mmHg Respiratory Rate 18 /min Body Temperature 97.8 F BMI (Body Mass Index) 31.1 kg/m2 02/12/2017 Heart Rate 93 /min BP Systolic 122 mmHg BP Diastolic 66 mmHg Body Temperature 96.3 F O2 % BldC Oximetry 97 % 01/08/2017 Height 65.5 inches 5'5.50" Weight 187.00 lb Heart Rate 84 /min BP Systolic 120 mmHg BP Diastolic 62 mmHg O2 % BldC Oximetry 99 % BMI (Body Mass Index) 30.6 kg/m2 10/22/2016 Height 65.5 inches 5'5.50" Weight 191.00 lb Heart Rate 80 /min BP Systolic Sitting 128 mmHg BP Diastolic Sitting 80 mmHg Respiratory Rate 20 /min O2 % BldC Oximetry 98 % room air BMI (Body Mass Index) 31.3 kg/m2 10/08/2016 Height 65.5 inches 5'5.50" Weight 193.00 lb Heart Rate 96 /min BP Systolic Sitting 128 mmHg BP Diastolic Sitting 86 mmHg O2 % BldC Oximetry 98 % BMI (Body Mass Index) 31.6 kg/m2 07/28/2016 Height 65.5 inches 5'5.50" Weight 194.00 lb Heart Rate 76 /min BP Systolic Sitting 124 mmHg BP Diastolic Sitting 80 mmHg Pain Level 8 BMI (Body Mass Index) 31.8 kg/m2 04/30/2016 Height 65.5 inches 5'5.50" Weight 192.00 lb without shoes Heart Rate 78 /min BP Systolic Sitting 124 mmHg Lue , reg cuff BP Diastolic Sitting 70 mmHg Lue , reg cuff BP Systolic Standing 138 mmHg BP Diastolic Standing 86 mmHg Respiratory Rate 18 /min BMI (Body Mass Index) 31.5 kg/m2 Ejection Fraction 55-60% 04/21/16 10/23/2015 Height 65.5 inches 5'5.50" Weight 200.00 lb Heart Rate 76 /min BP Systolic 128 mmHg BP Diastolic 88 mmHg Respiratory Rate 14 /min O2 % BldC Oximetry 98 % BMI (Body Mass Index) 32.8 kg/m2 05/11/2015 Height 65.5 inches 5'5.50" Weight 207.00 lb Heart Rate 72 /min BP Systolic Sitting 138 mmHg Ra, reg BP Diastolic Sitting 78 mmHg Ra, reg BP Systolic Standing 132 mmHg Ra, reg BP Diastolic Standing 80 mmHg Ra, reg BMI (Body Mass Index) 33.9 kg/m2 Ejection Fraction 55%-60% 05/03/15 10/17/2014 Height 65.5 inches 5'5.50" Weight 211.00 lb Heart Rate 88 /min BP Systolic 120 mmHg BP Diastolic 74 mmHg Respiratory Rate 16 /min O2 % BldC Oximetry 98 % BMI (Body Mass Index) 34.6 kg/m2 07/18/2014 Height 65.5 inches 5'5.50" Weight 211.00 lb Heart Rate 88 /min BP Systolic Sitting 124 mmHg BP Diastolic Sitting 80 mmHg O2 % BldC Oximetry 98 % BMI (Body Mass Index) 34.6 kg/m2 Neck Circumference in inches 16.5 05/08/2014 Height 61 inches 5'1" Weight 210.00 lb with boots Heart Rate 78 /min BP Systolic 118 mmHg L arm , reg cuff BP Diastolic 70 mmHg L arm , reg cuff BP Systolic Sitting 128 mmHg BP Diastolic Sitting 80 mmHg Respiratory Rate 18 /min BMI (Body Mass Index) 39.7 kg/m2 04/03/2014 Height 61 inches 5'1" Weight 209.00 lb Heart Rate 76 /min BP Systolic Sitting 122 mmHg Ra lg cuff BP Diastolic Sitting 82 mmHg Ra lg cuff BP Systolic Standing 130 mmHg Ra lg cuff BP Diastolic Standing 78 mmHg Ra lg cuff Respiratory Rate 14 /min BMI (Body Mass Index) 39.5 kg/m2 Results Test Date Test Result H/L Range Note Protime W/ Inr 10/26/2017 Prothrombin Time 23.6 Inr 1.9 Protime W/ Inr 10/19/2017 Prothrombin Time 23.3 Inr 1.9 Protime W/ Inr 10/12/2017 Prothrombin Time 21.5 Inr 1.8 Protime W/ Inr 09/14/2017 Prothrombin Time 25.3 Inr 2.1 Protime W/ Inr 08/17/2017 Prothrombin Time 25.8 Inr 2.1 Protime W/ Inr 07/27/2017 Prothrombin Time 30.3 Inr 2.5 Protime W/ Inr 07/20/2017 Prothrombin Time 35.8 Inr 3.0 Lipid Profile (Trig/Chol/HDL) 07/03/2017 Triglycerides 224 mg/dL 1 Cholesterol 131 mg/dL 2 HDL Cholesterol 35.3 mg/dL 3 LDL Cholesterol 51 mg/dL 4 Comp Metabolic Panel 07/03/2017 Sodium 139 mmol/L 139-145 Potassium 4.0 mmol/L 3.5-5.0 Chloride 103 mmol/L 101-111 Co2 Carbon Dioxide 27 mmol/L 22-32 Anion Gap 9 mmol/L 2-11 Glucose 131 mg/dL High 70-100 Blood Urea Nitrogen 20 mg/dL 6-24 Creatinine 1.17 mg/dL High 0.51-0.95 BUN/Creatinine Ratio 17.1 8-20 Calcium 9.4 mg/dL 8.6-10.3 Total Protein 6.7 g/dL 6.4-8.9 Albumin 4.0 g/dL 3.2-5.2 Globulin 2.7 g/dL 2-4 Albumin/Globulin Ratio 1.5 1-3 Total Bilirubin 0.50 mg/dL 0.2-1.0 Alkaline Phosphatase 73 U/L 34-104 Alt 13 U/L 7-52 Ast 24 U/L 13-39 Egfr Non- 44.2 >60 Egfr 56.8 >60 5 Laboratory test finding 07/03/2017 Hemoglobin A1c (Glyco HGB) 7.0 % High 4.0-5.6 6 Vitamin B12 265 pg/mL 180-914 7 CBC Auto Diff 07/03/2017 White Blood Count 9.1 10^3/uL 3.5-10.8 Red Blood Count 4.20 10^6/uL 4.0-5.4 Hemoglobin 13.7 g/dL 12.0-16.0 Hematocrit 40 % 35-47 Mean Corpuscular Volume 95 fL 80-97 Mean Corpuscular Hemoglobin 33 pg High 27-31 Mean Corpuscular HGB Conc 35 g/dL 31-36 Red Cell Distribution Width 13 % 10.5-15 Platelet Count 210 10^3/uL 150-450 Mean Platelet Volume 9.0 um3 7.4-10.4 Abs Neutrophils 3.1 10^3/uL 1.5-7.7 Abs Lymphocytes 5.4 10^3/uL High 1.0-4.8 Abs Monocytes 0.5 10^3/uL 0-0.8 Abs Eosinophils 0.1 10^3/uL 0-0.6 Abs Basophils 0 10^3/uL 0-0.2 Abs Nucleated RBC 0 10^3/uL Granulocyte % 34.2 % Low 38-83 Lymphocyte % 59.3 % High 25-47 Monocyte % 5.4 % 0-7 Eosinophil % 0.6 % 0-6 Basophil % 0.5 % 0-2 Nucleated Red Blood Cells % 0.2 Protime W/ Inr 06/22/2017 Prothrombin Time 27.9 Inr 2.3 Protime W/ Inr 06/08/2017 Prothrombin Time 26.6 Inr 2.2 Inr/Protime 06/01/2017 Inr 3.16 High 0.77-1.02 Protime W/ Inr 05/05/2017 Prothrombin Time 33.5 Inr 2.7 Comp Metabolic Panel 04/27/2017 Sodium 135 mmol/L 133-145 Potassium 3.8 mmol/L 3.5-5.0 Chloride 101 mmol/L 101-111 Co2 Carbon Dioxide 25 mmol/L 22-32 Anion Gap 9 mmol/L 2-11 Glucose 188 mg/dL High 70-100 Blood Urea Nitrogen 27 mg/dL High 6-24 Creatinine 1.00 mg/dL High 0.51-0.95 BUN/Creatinine Ratio 27.0 High 8-20 Calcium 9.6 mg/dL 8.6-10.3 Total Protein 6.7 g/dL 6.4-8.9 Albumin 3.8 g/dL 3.2-5.2 Globulin 2.9 g/dL 2-4 Albumin/Globulin Ratio 1.3 1-3 Total Bilirubin 0.70 mg/dL 0.2-1.0 Alkaline Phosphatase 45 U/L 34-104 Alt 12 U/L 7-52 Ast 23 U/L 13-39 Egfr Non- 53.1 >60 Egfr 68.3 >60 8 Laboratory test finding 04/27/2017 Amylase 44 U/L 29-103 Lipase 45 U/L 11.0-82.0 Creatine Kinase(CK) 112 U/L 10-223 Inr/Protime 04/27/2017 Inr 2.94 High 0.77-1.02 Laboratory test finding 04/27/2017 Partial Thrombo Time 40.8 seconds High 26.0-36.3 PTT Lactic Acid 1.5 mmol/L 0.5-2.0 9 Laboratory test finding 04/10/2017 Hemoglobin A1c 6.8 5-7 Protime W/ Inr 04/07/2017 Prothrombin Time 31.1 Inr 2.5 Protime W/ Inr 03/17/2017 Prothrombin Time 35.5 Inr 2.9 Protime W/ Inr 03/02/2017 Prothrombin Time 35.4 Inr 2.9 Protime W/ Inr 02/16/2017 Prothrombin Time 23.0 Inr 2.7 CBC Auto Diff 02/12/2017 White Blood Count 10.9 10^3/uL High 3.5-10.8 Red Blood Count 4.28 10^6/uL 4.0-5.4 Hemoglobin 13.7 g/dL 12.0-16.0 Hematocrit 40 % 35-47 Mean Corpuscular Volume 94 fL 80-97 Mean Corpuscular Hemoglobin 32 pg High 27-31 Mean Corpuscular HGB Conc 34 g/dL 31-36 Red Cell Distribution Width 13 % 10.5-15 Platelet Count 236 10^3/uL 150-450 Mean Platelet Volume 9 um3 7.4-10.4 Abs Neutrophils 3.4 10^3/uL 1.5-7.7 Abs Lymphocytes 6.9 10^3/uL High 1.0-4.8 Abs Monocytes 0.5 10^3/uL 0-0.8 Abs Eosinophils 0 10^3/uL 0-0.6 Abs Basophils 0 10^3/uL 0-0.2 Abs Nucleated RBC 0.01 10^3/uL Granulocyte % 31.0 % Low 38-83 Lymphocyte % 63.6 % High 25-47 Monocyte % 4.9 % 1-9 Eosinophil % 0.3 % 0-6 Basophil % 0.2 % 0-2 Nucleated Red Blood Cells % 0 Comp Metabolic Panel 02/12/2017 Sodium 137 mmol/L 133-145 Potassium 4.1 mmol/L 3.5-5.0 Chloride 100 mmol/L Low 101-111 Co2 Carbon Dioxide 31 mmol/L 22-32 Anion Gap 6 mmol/L 2-11 Glucose 100 mg/dL 70-100 Blood Urea Nitrogen 15 mg/dL 6-24 Creatinine 0.97 mg/dL High 0.51-0.95 BUN/Creatinine Ratio 15.5 8-20 Calcium 9.4 mg/dL 8.6-10.3 Total Protein 6.6 g/dL 6.4-8.9 Albumin 3.9 g/dL 3.2-5.2 Globulin 2.7 g/dL 2-4 Albumin/Globulin Ratio 1.4 1-3 Total Bilirubin 0.50 mg/dL 0.2-1.0 Alkaline Phosphatase 56 U/L 34-104 Alt 12 U/L 7-52 Ast 23 U/L 13-39 Egfr Non- 55.0 >60 Egfr 70.7 >60 10 Laboratory test finding 02/12/2017 Erythrocyte Sed Rate 24 mm/Hr 0-40 C Reactive Protein 12.97 mg/L High < 5.00 11 Uric Acid 4.1 mg/dL 2.3-6.6 Protime W/ Inr 02/09/2017 Prothrombin Time 41.6 Inr 3.5 Protime W/ Inr 01/08/2017 Prothrombin Time 30.2 Inr 2.5 Laboratory test finding 01/08/2017 Hemoglobin A1c 7.0 5-7 Protime W/ Inr 12/25/2016 Prothrombin Time 26.8 Inr 2.2 Protime W/ Inr 12/19/2016 Prothrombin Time 41.9 Inr 3.5 Protime W/ Inr 12/05/2016 Prothrombin Time 31.5 Inr 2.6 Inr/Protime 11/27/2016 Inr 3.31 High 0.89-1.11 Protime W/ Inr 11/21/2016 Prothrombin Time 38.5 Inr 3.2 Protime W/ Inr 10/23/2016 Prothrombin Time 32.5 Inr 2.7 Laboratory test finding 10/08/2016 Hemoglobin A1c 7.2 High 5-7 Protime W/ Inr 10/08/2016 Prothrombin Time 34.0 Inr 2.7 Urine Culture And Sensitivities 10/08/2016 Urine Culture SEE RESULT BELOW 12 Urinalysis Profile 10/08/2016 Urine Color Dina Urine Appearance Cloudy Urine Specific [place] 1.019 1.010-1.030 Urine pH 5.0 5-9 Urine Urobilinogen Negative Negative Urine Ketones Negative Negative Urine Protein Negative Negative Urine Leukocytes 3+ Negative Urine Blood Negative Negative * * Negative 13 Urine Nitrite Negative Negative Urine Bilirubin Negative Negative Urine Glucose Negative Negative Urine White Blood Cell 3+(>20/hpf) Absent Urine Red Blood Cell Absent Absent Urine Bacteria Absent Absent Urine Squamous Epithelial Cell Present Absent Urine Microalbumin Random 10/08/2016 Urine Creatinine 83.63 mg/dL Ur Microalbumin (mg/L) 34.0 mg/L Urine Microalbumin/Creatinine 40.6 ug/mg High <31 1 Desirable: <150 Borderline High: 150-199 High: 200-499 Very High: >500 2 Desirable: <200 Borderline High: 200-239 High: >239 3 Low: <40 Desirable: 40-60 High: >60 4 Desirable: <100 Near Optimal: 100-129 Borderline High: 130-159 High: 160-189 Very High: >189 5 Because ethnic data is not always readily available, this report includes an eGFR for both -Americans and non- Americans. The National Kidney Disease Education Program (NKDEP) does not endorse the use of the MDRD equation for patients that are not between the ages of 18 and 70, are , have extremes of body size, muscle mass, or nutritional status, or are non- or non-. According to the National Kidney Foundation, irrespective of diagnosis, the stage of the disease is based on the level of kidney function: Stage Description GFR(mL/min/1.73 m(2)) 1 Kidney damage with normal or decreased GFR 90 2 Kidney damage with mild decrease in GFR 60-89 3 Moderate decrease in GFR 30-59 4 Severe decrease in GFR 15-29 5 Kidney failure <15 (or dialysis) 6 Therapeutic target for the treatment of diabetes mellitus patients is <7% HBA1C, and in selective patients <6.0%. Please refer to [place] [employer] diabetic care guidelines for further information. 7 Normal Range 180 to 914 Indeterminate Range 145 to 180 Deficient Range <145 8 Because ethnic data is not always readily available, this report includes an eGFR for both -Americans and non- Americans. The National Kidney Disease Education Program (NKDEP) does not endorse the use of the MDRD equation for patients that are not between the ages of 18 and 70, are , have extremes of body size, muscle mass, or nutritional status, or are non- or non-. According to the National Kidney Foundation, irrespective of diagnosis, the stage of the disease is based on the level of kidney function: Stage Description GFR(mL/min/1.73 m(2)) 1 Kidney damage with normal or decreased GFR 90 2 Kidney damage with mild decrease in GFR 60-89 3 Moderate decrease in GFR 30-59 4 Severe decrease in GFR 15-29 5 Kidney failure <15 (or dialysis) 9 [facility] Severe Sepsis and Septic Shock Management Bundle Measure requires all lactic acids initially measuring >2.0 mmol/L be repeated. 10 Because ethnic data is not always readily available, this report includes an eGFR for both -Americans and non- Americans. The National Kidney Disease Education Program (NKDEP) does not endorse the use of the MDRD equation for patients that are not between the ages of 18 and 70, are , have extremes of body size, muscle mass, or nutritional status, or are non- or non-. According to the National Kidney Foundation, irrespective of diagnosis, the stage of the disease is based on the level of kidney function: Stage Description GFR(mL/min/1.73 m(2)) 1 Kidney damage with normal or decreased GFR 90 2 Kidney damage with mild decrease in GFR 60-89 3 Moderate decrease in GFR 30-59 4 Severe decrease in GFR 15-29 5 Kidney failure <15 (or dialysis) 11 Acute inflammation: >10.00 12 SEE RESULT BELOW Name: MARGRET PACK : [address]: Chino Peraza HYDRAULIC CORRUGATING MACHINE OPERATOR Acct: [id number] Unit: [id number] AGE: 81 Location: [facility] Re10/08/16 SEX: F Status: REG REF SPEC: [id number] VAMSI: 10/08/[address]: Chino Peraza NP REQ: [id number] RECD: 10/08/16 STATUS: COMP _ SOURCE: URINE SPDESC: ORDERED: Urine Culture Procedure Result Reported Site Urine Culture Final 10/09/16- 1621 ML No growth of clinically significant organisms * ML - MAIN LAB ([facility]) . END OF REPORT * ML=Testing performed at Main Lab DEPARTMENT OF PATHOLOGY, [address] [place] [address] Eulalio Natarajan M.D. Director [facility] # [id number] 13 *Ascorbic acid is present which may interfere with detection of blood. Procedures Date CPT Code Description Status Comment 10/06/2017 Diabetic Retinal Eye Exam Completed 08/24/2017 82144 Stress Test Completed 08/24/2017 21708 Myocardial Perfusion Imaging Completed Tomographic (Spect) Multiple Studies 08/04/2017 Diabetic Foot Exam Completed 07/21/2017 30359 EKG Tracing & Interpretation Completed 06/17/2017 Diabetic Foot Exam Completed 06/04/2017 Mammogram Completed 04/21/2017 18462 EKG Tracing & Interpretation Completed 04/17/2017 00733 ECHO Transthoracic, Real-Time Completed 2D With Doppler And Color Flow 04/17/2017 87479 ECHO Transthoracic, Real-Time Completed 2D With Doppler And Color Flow 01/13/2017 Bone Mineral Density Test Completed 09/26/2016 Diabetic Retinal Eye Exam Completed 05/15/2016 Mammogram Completed 04/30/2016 68348 EKG Tracing & Interpretation Completed 04/21/2016 53442 ECHO Transthoracic, Real-Time Completed 2D With Doppler And Color Flow 05/11/2015 53875 EKG Tracing & Interpretation Completed 05/03/2015 23428 ECHO Transthoracic, Real-Time Completed 2D With Doppler And Color Flow 04/24/2014 24278 Myocardial Perfusion Imaging Completed Tomographic (Spect) Multiple Studies 04/24/2014 13779 Stress Test Completed 04/04/2014 17728 ECHO Transthoracic, Real-Time Completed 2D With Doppler And Color Flow 04/03/2014 91561 EKG Tracing & Interpretation Completed 03/16/2008 Colonoscopy Completed 7-10 yr repeat recommended Encounters Type Date Location Provider CPT E/M Dx Office Visit 08/26/2017 [facility] [address] I77.810 1:00p Yasmeen Mathis, FAC, [facility] R06.02 I48.2 Office Visit 07/21/2017 2:00p [facility] Celina Howell [address]68 R06.02 - Brittny Mathis M79.671 K52.839 I48.91 Office Visit 07/10/2017 1:20p [facility] Internal Medicine Celina Howell [address]51 Z00.00 - Brittny Mathis E11.9 I10 I48.2 K59.00 Office Visit 05/01/2017 2:20p [facility] [place] [address] M89.8x8 [place] M79.671 Office Visit 04/21/2017 1:15p [facility] [place] Kelly, [address] I77.810 Yasmeen Mathis, [facility], [facility] I48.2 Office Visit 04/10/2017 2:20p [facility] Internal Medicine Celina Howell 25194 E11.9 - Brittny Mathis I10 I71.2 Z12.31 Z79.01 H91.90 Office Visit 02/20/2017 2:00p [place] [address] R60.0 C.M.A. M25.572 Office Visit 02/12/2017 2:20p [facility] [place] [address] M25.572 Medicine - [place] Office Visit 01/08/2017 2:00p [facility] Internal Celina Howell, 21383 E11.9 Medicine - Brittny Mathis Z79.01 M48.45xS I10 M48.45xD I48.2 Office Visit 10/22/2016 2:00p Pulmonology And Sleep Rosalinda Drake, 14347 G47.33 Services Of [facility] JOHNATHAN DSOUZA, [facility] Office Visit 10/08/2016 3:00p [facility] [place] [address] E11.9 - [place] I10 I48.2 Z79.01 S32.049D R31.9 Office Visit 07/28/2016 1:30p Neurosurgery Services Sienna Woodson PA-C 00357 S32.049A Of [facility] Office Visit 04/30/2016 11:45a [facility] G[facility] Kelly, 78212 I48.2 Yasmeen Mathis, [facility], [facility] Office Visit 10/23/2015 2:30p Pulmonology And Sleep Rosalinda Drake 71258 G47.33 Services Of [facility] JOHNATHAN DSOUZA, [facility] G47.00 Office Visit 06/09/2015 3:28p [facility],winston Saba, 86873 J18.9 Hospitalists D.O. E11.9 A41.9 I10 Office Visit 06/08/2015 3:27p [facility],winston Saba 52946 J18.9 Hospitalists D.OChela A41.9 E11.9 I10 Office Visit 06/07/2015 3:27p [facility], Eva Adamsonr, 75890 J18.9 Hospitalists D.O. A41.9 E11.9 I10 Office Visit 06/06/2015 3:26p [facility], Volodymyr Ernesto, 71322 J18.9 Hospitalists N.P. 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 at [facility] Internal Medicine [facility]10/27/2017 - Rosalinda Drake DNP, RN, [facility]- BCG47.33 Obstructive sleep apnea (adult) (pediatric)New Orders:Sleep- HomecareComments:On CPAP AHI 4.2/hour, normalFollow up:1 yearRecommendations: Continue PAP device, Benefitting and compliant with treatment. Cleaning Wipe off mask daily (baby wipe-no scent, or warm water) Clean mask, tubing, filter, and water chamber weekly in mild no scent dish soap and water. Hang to dry. So -Clean is an option (not covered by insurance) If you have any sleepiness while driving you MUST avoid operating a vehicle or machinery. If you have difficulty with your equipment, or need to replace your mask or hoses, please contact your homecare agency. A weight change of 20 pounds or more may have an effect on your equipment; if you are experiencing problems please call for an appointment. If you have any further questions, please call the [facility] at [phone].Z68.33 Body mass index (BMI) 33.0-33.9, adultRecommendations:Avoid weight gain.
[2017-11-15] MEDS ORDERED: Ondansetron INJ* 2 MG/ML VIAL IV ONE (20:20)
[2017-11-15] MEDS ORDERED: Tetan/Diph/Pertus SYR(Tdap)* 0.5 ML SYR(BOOSTRIX) use SYR IM ONE (20:20)
[2017-11-15 20:52] LABS: Hematocrit 41 % (35-47); Hemoglobin 14.2 g/dl (12.0-16.0); Mean Corpuscular HGB Conc 34 g/dl (31-36); Mean Corpuscular Hemoglobin 32 pg (27-31); Mean Corpuscular Volume 94 fL (80-97); Mean Platelet Volume 8.7 um3 (7.4-10.4); Platelet Count 178 10^3/ul (150-450); Red Cell Distribution Width 14 % (10.5-15); White Blood Count 9.4 10^3/ul (3.5-10.8)
[2017-11-15 21:01] LABS: INR 2.85 (0.77-1.02)
[2017-11-15 21:07] LABS: EGFR Non-African American 42.9 (>60)
--- NOTE | 2017-11-15 21:09 | RAD ---
EXAM: CT Head Without Intravenous Contrast CLINICAL HISTORY: 82 years old, female; Injury or trauma; Fall; Initial encounter; Concussion / head injury; Without loss of consciousness; Patient HX: Large bump and lac to left forehead TECHNIQUE: Axial computed tomography images of the head/brain without intravenous contrast. All CT scans at this facility use at least one of these dose optimization techniques: automated exposure control; mA and/or kV adjustment per patient size (includes targeted exams where dose is matched to clinical indication); or iterative reconstruction. COMPARISON: BRAIN WO CT BRAIN WO 06/28/2014 10:23 AM FINDINGS: Brain: No acute hemorrhage, edema, or extraaxial collection. Medrano white differentiation is maintained throughout the brain. There is diffuse cortical volume loss, consistent with patient's age. Ventricles: Unremarkable. No ventriculomegaly. Bones/joints: No acute fracture or aggressive osseous lesions Soft tissues: Moderate subcutaneous hematoma over left forehead. Sinuses: Unremarkable as visualized. No acute sinusitis. Mastoid air cells: Unremarkable as visualized. No mastoid effusion. IMPRESSION: 1. No acute intracranial findings. 2. Subcutaneous hematoma of left forehead.
--- NOTE | 2017-11-15 21:17 | RAD ---
EXAM: CT Cervical Spine Without Intravenous Contrast CLINICAL HISTORY: 82 years old, female; Injury or trauma; Fall; Initial encounter; Concussion /head injury TECHNIQUE: Axial computed tomography images of the cervical spine without intravenous contrast. All CT scans at this facility use at least one of these dose optimization techniques: automated exposure control; mA and/or kV adjustment per patient size (includes targeted exams where dose is matched to clinical indication); or iterative reconstruction. Coronal and sagittal reformatted images were created and reviewed. COMPARISON: No relevant prior studies available. FINDINGS: Vertebrae: The bones are osteopenic. No acute fracture identified. Vertebral body heights are maintained. Mild endplate osteophyte formation present throughout the cervical spine. There is apparent ankylosis of the left C4-C5 facet joint. Significant intervertebral disc space narrowing incidentally noted at T1/T2. Discs/spinal canal/neural foramina: See above. Soft tissues: Unremarkable. Vasculature: Internal carotid artery calcifications are present. Thyroid: 2 small low density nodules are noted in the left thyroid lobe, largest measuring 5 mm, likely colloid cysts. Lung apices: Unremarkable as visualized. IMPRESSION: 1. No acute findings. 2. Significant bony demineralization. Degenerative change as above.
[2017-11-15 21:46] LABS: ABS Basophils 0 10^3/ul (0-0.2); ABS Eosinophils 0 10^3/ul (0-0.6); ABS Lymphocytes 5.8 10^3/ul (1.0-4.8); ABS Monocytes 0.4 10^3/ul (0-0.8); ABS Neutrophils 3.1 10^3/ul (1.5-7.7); ABS Nucleated RBC 0 10^3/ul; Eosinophil % 0.3 % (0-6); Lymphocyte % 61.8 % (25-47); Nucleated Red Blood Cells % 0.2
[2017-11-15 22:35] VITALS: BP 167/91
== END 2017-11-15 22:38 | disposition home or self-care (01) ==
LOC: ED 19:54
DX: M54.2 Cervicalgia (principal); R11.0 Nausea; R42 Dizziness and giddiness; Z79.01 Long term (current) use of anticoagulants; S91.112A Laceration without foreign body of left great toe without damage to nail, initial encounter; W01.0XXA Fall on same level from slipping, tripping and stumbling without subsequent striking against object, initial encounter; Y92.9 Unspecified place or not applicable; Z88.0 Allergy status to penicillin
CPT/HCPCS: 12001; 36415; 70450; 72125; 80053; 85025; 85610; 85730; 90471; 90715; 96374; 99283; J2405

== ENCOUNTER 2017-12-04 10:50 | Emergency (ER) | payer MEDICARE ==
[2017-12-04 11:53] LABS: Hematocrit 40 % (35-47); Hemoglobin 13.6 g/dl (12.0-16.0); Mean Corpuscular HGB Conc 34 g/dl (31-36); Mean Corpuscular Hemoglobin 32 pg (27-31); Mean Corpuscular Volume 93 fL (80-97); Mean Platelet Volume 8.9 um3 (7.4-10.4); Platelet Count 188 10^3/ul (150-450); Red Blood Count 4.28 10^6/ul (4.00-5.40); Red Cell Distribution Width 14 % (10.5-15); White Blood Count 9.8 10^3/ul (3.5-10.8)
--- NOTE | 2017-12-04 12:10 | RAD ---
HISTORY: dyspnea COMPARISONS: December 03, 2017 VIEWS: 1: frontal portable view of the chest at 12:00 PM FINDINGS: LINES AND TUBES: None. CARDIOMEDIASTINAL SILHOUETTE: The aorta is tortuous. The cardiomediastinal silhouette is stable. PLEURA: The costophrenic angles are sharp. No pleural abnormalities are noted. LUNG PARENCHYMA: The lungs are clear. ABDOMEN: The upper abdomen is clear. There is no subphrenic gas. BONES AND SOFT TISSUES: There are degenerative changes of the shoulders. IMPRESSION: NO ACTIVE CARDIOPULMONARY DISEASE.
[2017-12-04 12:14] LABS: EGFR Non-African American 63.9 (>60)
[2017-12-04] MEDS ORDERED: Furosemide IV* 10 MG/ML VIAL (40 MG) IV ONE (12:34)
[2017-12-04] MEDS ORDERED: Furosemide IV* 10 MG/ML VIAL (40 MG) ONE (12:36)
[2017-12-04 12:43] LABS: Eosinophil % 0.3 % (0-6); Lymphocyte % 55.3 % (25-47)
--- NOTE | 2017-12-04 12:43 | ED ---
Shortness of Breath - HPI Summary HPI Summary: This patient is an 82 year old F presenting to [facility] accompanied by her daughter with a chief complaint of SOB since 11/20/17, but much worse since . Pt fell 2 weeks ago after tripping on the stairs, and hit her face on concrete. She currently endorses forehead pain and diffuse facial ecchymosis secondary to her fall. Pt has been SOB for 2 weeks, which she attributes to being unable to use her CPAP at night secondary to facial pain. Starting 2 days ago, the pt endorses severe SOB and gurgling in her throat s/p waking and walking to and from the bathroom, with sx worsening after lying down. She notes that she was severely SOB for 2 hours after walking. Pt is Rx Percoset, and has been taking it for pain associated with her fall, but has cut down to only 1 dose yesterday due to fear of respiratory suppression (she had been taking 3-4 a day prior to 12/03/17. She denies PMHx CHF. PMHx thoracic aneurysm that has been stable for years, and is prescribed Coumadin. - History of Current Complaint Chief Complaint: EDShortnessOfBreath Hx Obtained From: Patient, Family/Chief Meter Reader Onset/Duration: Gradual Onset, Lasting Days, Still Present, Worse Since - Timing: Constant Current Severity: Moderate Dyspnea At: Exertion Aggrevating Factors: Recumbent Position Associated Signs & Symptoms: Negative Related History: Recent Trauma, Obesity - Allergy/Home Medications Allergies/Adverse Reactions: Allergies Allergy/AdvReac Type Severity Reaction Status Date / Time amoxicillin [From Augmentin] Allergy Unknown Verified 12/04/17 10:52 Reaction Details clavulanic acid Allergy Unknown Verified 12/04/17 10:52 [From Augmentin] Reaction Details latex Allergy Rash Verified 12/04/17 10:52 levofloxacin [From Levaquin] Allergy Rash And Verified 12/04/17 10:52 Itching nickel Allergy Itching Verified 12/04/17 10:52 Home Medications: Home Medications Amoxicillin PO (*) [Amoxicillin 500 MG CAP*] 2,000 mg PO ONCE PRN 12/04/17 [ History Confirmed 12/04/17] Ascorbic Acid TAB* [Vitamin C TAB*] 500 mg PO DAILY 12/04/17 [History Confirmed 12/04/17] Atenolol TAB* [Tenormin TAB* 50 MG] 50 mg PO BID 12/04/17 [History Confirmed ] Calcium Carbonate/Vitamin D3 [Calcium 600 + Vit D Tablet] 1 tab PO DAILY [History Confirmed 12/04/17] Chromium Picolinate 200 mcg PO DAILY 12/04/17 [History Confirmed 12/04/17] Cyclobenzaprine TAB* [Flexeril 10 MG TAB*] 5 mg PO Q8HR PRN 12/04/17 [History Confirmed 12/04/17] Garlic 1 tab PO DAILY 12/04/17 [History Confirmed 12/04/17] Glucosam/Chond/Collagen/Hyalur [Glucosamine Chondroitin/C] 1 cap PO BID [History Confirmed 12/04/17] Hydrochlorothiazide TAB* [Hydrodiuril TAB*] 50 mg PO DAILY 12/04/17 [History Confirmed 12/04/17] Lactobacillus Acidophilus [Probiotic] 1 cap PO DAILY 12/04/17 [History Confirmed 12/04/17] Lactobacillus Acidophilus* [Culturelle*] 1 cap PO DAILY 12/04/17 [History Confirmed 12/04/17] Lisinopril TAB* [Prinivil TAB*] 40 mg PO DAILY 12/04/17 [History Confirmed 12/04] Loperamide HCl [Loperamide] 2 mg PO BID 12/04/17 [History Confirmed 12/04/17] Meclizine TAB* [Antivert 12.5 TAB*] 12.5 mg PO BID 12/04/17 [History Confirmed 12/04/17] Menthol [Blue Gel] 4 % TOPICAL TID PRN 12/04/17 [History Confirmed 12/04/17] Alpine-3 Fatty Acids (Nf) [Fish Oil (NF)] 2,000 mg PO DAILY 12/04/17 [History Confirmed 12/04/17] Pyridoxine TAB* [Vitamin B6 TAB*] 50 mg PO DAILY 12/04/17 [History Confirmed ] Warfarin TAB(*) [Coumadin TAB(*)] 2.5 mg PO DAILY 12/04/17 [History Confirmed ] metFORMIN* [Glucophage 500 MG TAB *] 500 mg PO BID 12/04/17 [History Confirmed 12/04/17] oxyCODONE/Acetamin 5/325 MG* [Percocet 5/325 TAB*] 1 tab PO Q6H PRN MDD 4 [History Confirmed 12/04/17] PMH/Surg Hx/FS Hx/Imm Hx Endocrine/Hematology History: Reports: Hx Diabetes Cardiovascular History: Reports: Hx Aneurysm - thoracic, Hx Atrial Fibrillation , Hx Hypertension Denies: Hx Congestive Heart Failure Respiratory History: Reports: Hx Sleep Apnea - Uses Cpap at home, Other Respiratory Problems/Disorders - sleep apnea GI History: Reports: Hx Gastroesophageal Reflux Disease, Hx Hiatal Hernia, Other GI Disorders - Colitis History: Denies: Hx Dialysis, Hx Renal Disease, Other Problems/Disorders Musculoskeletal History: Reports: Hx Arthritis, Hx Back Problems, Other Musculoskeletal History - Left knee replacement Denies: Hx Osteoporosis, Hx Tendonitis Sensory History: Reports: Hx Cataracts - LEFT EYE CURRENTLY, Hx Contacts or Glasses, Hx Hearing Problem Denies: Hx Hearing Aid Opthamlomology History: Reports: Hx Cataracts - LEFT EYE CURRENTLY, Hx Contacts or Glasses Neurological History: Reports: Hx Migraine - IN PAST Denies: Other Neuro Impairments/Disorders Psychiatric History: Denies: Hx Schizophrenia - Cancer History Hx Chemotherapy: No Hx Radiation Therapy: No - Surgical History Surgery Procedure, Year, and Place: HERNIA [id number]/left knee [id number]/ [id number]/[place]. RIGHT EYE 2006 cataract, Left eye cataract 2012 Hx Anesthesia Reactions: Yes - EXTREME VERTIGO Infectious Disease History: No Infectious Disease History: Denies: Hx Clostridium Difficile, Hx Hepatitis, Hx Human Immunodeficiency Virus (HIV), Hx of Known/Suspected MRSA, Hx Shingles, Hx Tuberculosis, Hx Known/ Suspected VRE, Hx Known/Suspected VRSA, History Other Infectious Disease, Traveled Outside the [place] in Last 30 Days - Family History Known Family History: Negative: Other - Breast CA - Social History Occupation: Retired Lives: With Family Alcohol Use: None Hx Substance Use: No Substance Use Type: Reports: None Hx Tobacco Use: No Smoking Status (MU): Never Smoked Tobacco Have You Smoked in the Last Year: No Review of Systems Negative: Fever Positive: Blurred Vision Negative: Ear Ache Negative: Chest Pain Positive: Shortness Of Breath Positive: Diarrhea - chronic. Negative: Abdominal Pain, Other - blood in stool Positive: frequency. Negative: dysuria, hematuria Negative: Arthralgia - neck Positive: Bruising - facial Negative: Headache Positive: Depressed All Other Systems Reviewed And Are Negative: No Physical Exam - Summary Physical Exam Summary: Appearance: Alert, conversive, nontoxic appearing Skin: Warm, dry, no mottling, no rashes, no contusions. A lot of bruising to her face. HEENT: EOMI, PERRL, moist mucous membranes, a lot of bruising to her face. Neck: No masses on the neck, supple Respiratory: Breath sounds present, no rales, no rhonchi, no wheezes. Mild crackles in both lung bases, right worse than left. Cardiovascular: RRR, pulses are symmetrical in both lower and upper extremities Abdomen: Soft, non-tender Bowel Sounds: Present Musculoskeletal: No CVA tenderness, no obvious deformity, moving all extremities in a grossly normal manner Neurological: A&Ox3, CN II-XII Intact, moving all extremities symmetrically Psychiatric: Normal affect and mood Triage Information Reviewed: Yes Vital Signs On Initial Exam: Initial Vitals Temp Pulse Resp BP Pulse Ox 97.1 F 93 18 154/93 95 12/04/17 10:52 12/04/17 10:52 12/04/17 10:52 12/04/17 10:52 12/04/17 10:52 Vital Signs Reviewed: Yes Diagnostics - Vital Signs Vital Signs Temp Pulse Resp BP Pulse Ox 12/04/17 12:06 80 19 146/92 96 12/04/17 12:00 88 20 95 12/04/17 11:52 91 21 131/99 12/04/17 11:36 86 27 132/87 95 12/04/17 11:21 83 25 144/89 12/04/17 11:09 91 26 148/90 97 12/04/17 11:06 91 32 145/97 96 12/04/17 10:52 97.1 F 93 18 154/93 95 - Laboratory Lab Results: Lab Results 12/04/17 12/04/17 12/04/17 Range/Units 11:28 11:28 11:28 WBC 9.8 (3.5-10.8) 10^3/ul RBC 4.28 (4.00-5.40) 10^6/ul Hgb 13.6 (12.0-16.0) g/dl Hct 40 (35-47) % MCV 93 (80-97) fL MCH 32 H (27-31) pg MCHC 34 (31-36) g/dl RDW 14 (10.5-15) % Plt Count 188 (150-450) 10^3/ul MPV 8.9 (7.4-10.4) um3 Neut % (Auto) Pending Lymph % (Auto) Pending Hale % (Auto) Pending Eos % (Auto) Pending Baso % (Auto) Pending Absolute Neuts (auto) Pending Absolute Lymphs (auto) Pending Absolute Monos (auto) Pending Absolute Eos (auto) Pending Absolute Basos (auto) Pending Absolute Nucleated RBC Pending Nucleated RBC % Pending INR (Anticoag Therapy) 2.50 H (0.77-1.02) APTT 42.3 H (26.0-36.3) seconds D-Dimer, Quantitative < 200 (Less Than 230) ng/mL Sodium 139 (135-145) mmol/L Potassium 3.7 (3.5-5.0) mmol/L Chloride 104 (101-111) mmol/L Carbon Dioxide 25 (22-32) mmol/L Anion Gap 10 (2-11) mmol/L BUN 20 (6-24) mg/dL Creatinine 0.85 (0.51-0.95) mg/dL Est GFR ( Amer) 77.3 (>60) Est GFR (Non-Af Amer) 63.9 (>60) BUN/Creatinine Ratio 23.5 H (8-20) Glucose 206 H (70-100) mg/dL Calcium 9.1 (8.6-10.3) mg/dL Magnesium 1.1 L (1.9-2.7) mg/dL Total Bilirubin 0.80 (0.2-1.0) mg/dL AST 20 (13-39) U/L ALT 12 (7-52) U/L Alkaline Phosphatase 57 (34-104) U/L Troponin I 0.01 (<0.04) ng/mL B-Natriuretic Peptide ( - 100) pg/mL Total Protein 6.7 (6.4-8.9) g/dL Albumin 3.8 (3.2-5.2) g/dL Globulin 2.9 (2-4) g/dL Albumin/Globulin Ratio 1.3 (1-3) TSH 1.32 (0.34-5.60) mcIU/mL 12/04/17 Range/Units 11:31 WBC (3.5-10.8) 10^3/ul RBC (4.00-5.40) 10^6/ul Hgb (12.0-16.0) g/dl Hct (35-47) % MCV (80-97) fL MCH (27-31) pg MCHC (31-36) g/dl RDW (10.5-15) % Plt Count (150-450) 10^3/ul MPV (7.4-10.4) um3 Neut % (Auto) Lymph % (Auto) Hale % (Auto) Eos % (Auto) Baso % (Auto) Absolute Neuts (auto) Absolute Lymphs (auto) Absolute Monos (auto) Absolute Eos (auto) Absolute Basos (auto) Absolute Nucleated RBC Nucleated RBC % INR (Anticoag Therapy) (0.77-1.02) APTT (26.0-36.3) seconds D-Dimer, Quantitative (Less Than 230) ng/mL Sodium (135-145) mmol/L Potassium (3.5-5.0) mmol/L Chloride (101-111) mmol/L Carbon Dioxide (22-32) mmol/L Anion Gap (2-11) mmol/L BUN (6-24) mg/dL Creatinine (0.51-0.95) mg/dL Est GFR ( Amer) (>60) Est GFR (Non-Af Amer) (>60) BUN/Creatinine Ratio (8-20) Glucose (70-100) mg/dL Calcium (8.6-10.3) mg/dL Magnesium (1.9-2.7) mg/dL Total Bilirubin (0.2-1.0) mg/dL AST (13-39) U/L ALT (7-52) U/L Alkaline Phosphatase (34-104) U/L Troponin I (<0.04) ng/mL B-Natriuretic Peptide 585 H ( - 100) pg/mL Total Protein (6.4-8.9) g/dL Albumin (3.2-5.2) g/dL Globulin (2-4) g/dL Albumin/Globulin Ratio (1-3) TSH (0.34-5.60) mcIU/mL Result Diagrams: 12/04/17 11:28 12/04/17 11:28 Lab Statement: Any lab studies that have been ordered have been reviewed, and results considered in the medical decision making process. - Radiology CXR Xray Interpretation: No Acute Changes Radiology Interpretation Completed By: Radiologist - No active cardiopulmonary disease. Dr. Adams has reviewed this report. - EKG 1108 Cardiac Rate: NL - 90 EKG Rhythm: Atrial Fibrillation ST Segment: Non-Specific Ectopy: None EKG Interpretation: LAD, nl ME, nl QTC Course/Dx - Course Course Of Treatment: BNP is a little elevated, with give IV lasix. Pt complained of frequency, concerned about UTI; will obtain urine sample. Pt was able to ambulate without dyspnea or hypoxia (O2 sat at 96%). Will discharge with rx lasix; pt was counselled on how lasix can cause decreased K+. Pt will be prescribed 3 days worth of K+ as well. - Diagnoses Provider Diagnoses: CHF (congestive heart failure), UTI (urinary tract infection) Discharge - Sign-Out/Discharge Documenting (check all that apply): Patient Departure - Discharge - Discharge Plan Condition: Stable Disposition: HOME Referrals: Celina Howell MD [Primary Care Provider] - - Attestation Statements Document Initiated by Scribe: Yes Documenting Scribe: Akshat Cantu Provider For Whom Scribe is Documenting (Include Credential): Dr. Marion Adams MD Scribe Attestation: Akshat Wilson, scribed for Dr. Marion Adams MD on 12/04/17 at 1403.
--- OUTSIDE RECORDS SUMMARY | 2017-12-04 13:10 | XMS REPORT ---
:1935 External Reference #:[id number] Author Organization [facility] Address [address] [place] [address] [place] [address] Phone [phone] Care Team Providers Name Role Phone Celina Howell MD Primary Care Physician Unavailable Payers Type Date Identification Numbers Payment Provider Subscriber Commercial Policy Number: [id number] Amer Prog/Todays Options Margret Pack PayID: [id number] [address] [address] Attn: [place] [address] Advance Directives Type Date Description Status Comment Other Directive 04/25/2017 Health Care Proxy Current and Verified Problems Date Description Provider Status Onset: 04/03/2014 Atrial fibrillation Gumaro eKlly M.D., Active CARMINE, FELIZ Onset: 03/16/2002 Obstructive sleep apnea of adult Rosalinda Drake DNP, RN, Active [employer] Onset: 10/08/2016 Type 2 diabetes mellitus [place] [...] Date Family Member(s) Problem(s) Comments General Father [place] 66, 67. 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 Loperamide Active Tablets 2mg Celina HCL 018 Delfina Howell Meclizine HCL Active Tablets 12.5mg 60tabs 1 tab by Isidoro Evans mouth bid [employer] Rolling Active 1units Use while M48.45xS Acosta Evans With 018 ambulating [employer] Seat M25.572 M79.671 Hydrochlorothiazide 04/20/2017 Active Tablets [...] directed. Flonase Active Suspension 50mcg 1units 2 [place] /Act intranasal ARIAN Peraza puff to each nostril daily (dec to [...] Hernandez, mg mouth every Yina, 4-6 hours [employer] as needed pain Omeprazole Active Capsules DR [...] 31.6ml 2 sprays [place] Propionate /Act each Karmen, ARIAN nostril once daily Diclofenac Sodium Active Gel 1% as needed Yina Hernandez, [employer] Amoxicillin Active Capsules 500mg take 4 Unknown pills 1 hour before dental procedure Xifaxan 07/21/2017 - Hx Tablets 550mg 42tabs 1 PO tid x K Celina 10/26/2017 14 days (Pt 5 Cotton, not taking) 2 M.D. . 8 3 9 Lidocaine 05/01/2017 - Hx Ointment 5% 50units apply to M [place] 08/25/2017 painful 8 Karmen, [employer] areas three 9 times a day . as needed. 8 x 8 Diclofenac Sodium 02/12/2017 - Hx Gel 1% 100gm apply 2 M [place] 04/10/2017 grams to 2 Karmen, [employer] affected 5 area twice . daily 5 7 2 Metformin HCL 10/08/2016 - Hx Tablets 1000m 60tabs 1 tabs in [place] 02/13/2017 g the morning ARIAN Peraza 1 tab evening Oxycodone HCL 10/08/2016 - Hx Tablets 10mg 40tabs take one S [place] 04/10/2017 tablet by 3 ARIAN Peraza mouth every 2 6 hours as . needed for 0 pain; 4 maximum 9 daily D dose=4 Cholestyramine 10/25/2015 - Hx Packet 4gm 1 packet Unknown 10/21/2016 twice a day Melatonin 10/23/2015 - Hx Capsules 1mg 30caps 1-2 G Rosalinda 10/21/2016 capsules 1 4 Drake, hour before 7 DNP, RN, bed if . [employer]- needed 0 0 Coumadin - Hx Tablets 5mg 45tabs 1/2 tablet [place] 11/27/2016 daily or as Karmen, [employer] directed Aspir-Low - Hx Tablets DR 81mg [...] Form Strength Qnty SIG Indications Ordering Provider DTaP,Unspecifi Administered Injection Unknown ed 018 Inj, Administered Injection Gumaro Hernandez Regadenoson, 018 Kelly, 0.1 MG M.D., FACC, FASNC Technetium TC Administered Injection Gumaro Hernandez 99M 018 Kelly TetrofosminDelfina, FACC, Per Unit Dose FASNC Up To 40 Millicuries Influenza,Unsp Administered Injection Unknown ecified 017 Inj, Administered Injection Gumaro Hernandez Regadenoson, 015 Kelly, 0.1 MG M.D., FACC, FASNC Technetium TC Administered Injection Gumaro Hernandez 99M 015 Kelly, Tetrofosmin, MDaniel, FACC, Per Unit Dose FASNC Up To 40 Millicuries Technetium TC Administered Injection Ica Nuclear 99M 015 Schedule Tetrofosmin, Per Unit Dose Up To 40 Millicuries Vital Signs Date Vital Result Comment 12/03/2017 Height 62 inches 5'2" Weight 188.00 lb Heart Rate 97 /min BP Systolic 122 mmHg BP Diastolic 78 mmHg Body Temperature 97.4 F O2 % BldC Oximetry 95 % BMI (Body Mass Index) 34.4 kg/m2 11/26/2017 Height 62 inches 5'2" Weight 188.00 lb Heart Rate 80 /min BP Systolic Sitting 129 mmHg BP Diastolic Sitting 81 mmHg O2 % BldC Oximetry 98 % BMI (Body Mass Index) 34.4 kg/m2 11/18/2017 Height 62 inches 5'2" Weight 186.00 lb Heart Rate 95 /min BP Systolic 120 mmHg BP Diastolic 77 mmHg O2 % BldC Oximetry 98 % BMI (Body Mass Index) 34.0 kg/m2 11/04/2017 Height 62 inches 5'2" Weight 187.00 lb Heart Rate 98 /min BP Systolic Sitting 129 mmHg BP Diastolic Sitting 79 mmHg Body Temperature 96.3 F Pain Level 8 back O2 % BldC Oximetry 98 % BMI (Body Mass Index) 34.2 kg/m2 10/27/2017 Height 62 inches 5'2" Weight 184.00 [...] Result H/L Range Note Protime W/ Inr 11/30/2017 Prothrombin Time 30.4 Inr 2.5 CBC Auto Diff 11/15/2017 White Blood Count 9.4 10^3/uL 3.5-10.8 Red Blood Count 4.40 10^6/uL 4.00-5.40 Hemoglobin 14.2 g/dL 12.0-16.0 Hematocrit 41 % 35-47 Mean Corpuscular Volume 94 fL 80-97 Mean Corpuscular Hemoglobin 32 pg High 27-31 Mean Corpuscular HGB Conc 34 g/dL 31-36 Red Cell Distribution Width 14 % 10.5-15 Platelet Count 178 10^3/uL 150-450 Mean Platelet Volume 8.7 um3 7.4-10.4 Abs Neutrophils 3.1 10^3/uL 1.5-7.7 Abs Lymphocytes 5.8 10^3/uL High 1.0-4.8 Abs Monocytes 0.4 10^3/uL 0-0.8 Abs Eosinophils 0 10^3/uL 0-0.6 Abs Basophils 0 10^3/uL 0-0.2 Abs Nucleated RBC 0 10^3/uL Granulocyte % 32.8 % Low 38-83 Lymphocyte % 61.8 % High 25-47 Monocyte % 4.7 % 0-7 Eosinophil % 0.3 % 0-6 Basophil % 0.4 % 0-2 Nucleated Red Blood Cells % 0.2 Laboratory test finding 11/15/2017 Partial Thrombo Time 39.3 seconds High 26.0-36.3 PTT Inr/Protime 11/15/2017 Inr 2.85 High 0.77-1.02 Comp Metabolic Panel 11/15/2017 Sodium 139 mmol/L 135-145 Potassium 3.9 mmol/L 3.5-5.0 Chloride 104 mmol/L 101-111 Co2 Carbon Dioxide 26 mmol/L 22-32 Anion Gap 9 mmol/L 2-11 Glucose 173 mg/dL High 70-100 Blood Urea Nitrogen 26 mg/dL High 6-24 Creatinine 1.20 mg/dL High 0.51-0.95 BUN/Creatinine Ratio 21.7 High 8-20 Calcium 9.6 mg/dL 8.6-10.3 Total Protein 6.8 g/dL 6.4-8.9 Albumin 4.1 g/dL 3.2-5.2 Globulin 2.7 g/dL 2-4 Albumin/Globulin Ratio 1.5 1-3 Total Bilirubin 0.50 mg/dL 0.2-1.0 Alkaline Phosphatase 55 U/L 34-104 Alt 12 U/L 7-52 Ast 21 U/L 13-39 Egfr Non- 42.9 >60 Egfr 51.9 >60 1 Protime W/ Inr 11/09/2017 Prothrombin Time 30.9 Inr 2.5 Protime W/ Inr 11/09/2017 Prothrombin Time <pending> Inr <pending> Urine Microalbumin Random 11/05/2017 Ur Microalbumin (mg/L) 20.0 2 Urine Creatinine 54.07 mg/dL 2 Urine Microalbumin/Creatinine 36.9 High <31 2 Laboratory test finding 11/04/2017 Hemoglobin A1c 7.3 High 5-7 Protime W/ Inr 11/02/2017 Prothrombin Time 26.8 Inr 2.2 Protime W/ Inr 10/26/2017 Prothrombin Time 23.6 [...] Lipid Profile (Trig/Chol/HDL) 07/03/2017 Triglycerides 224 mg/dL 3 Cholesterol 131 mg/dL 4 HDL Cholesterol 35.3 mg/dL 5 LDL Cholesterol 51 mg/dL 6 Comp Metabolic Panel 07/03/2017 Sodium 139 mmol/L [...] Egfr Non- 44.2 >60 Egfr 56.8 >60 7 Laboratory test finding 07/03/2017 Hemoglobin A1c (Glyco HGB) 7.0 % High 4.0-5.6 8 Vitamin B12 265 pg/mL 180-914 9 CBC Auto Diff 07/03/2017 White Blood Count [...] Egfr Non- 53.1 >60 Egfr 68.3 >60 10 Laboratory test finding 04/27/2017 Amylase 44 U/L 29-103 Lipase 45 U/L 11.0-82.0 Creatine Kinase(CK) 112 U/L 10-223 Inr/Protime 04/27/2017 Inr 2.94 High 0.77-1.02 Laboratory test finding 04/27/2017 Partial Thrombo Time 40.8 seconds High 26.0-36.3 PTT Lactic Acid 1.5 mmol/L 0.5-2.0 11 Laboratory test finding 04/10/2017 Hemoglobin A1c 6.8 [...] Egfr Non- 55.0 >60 Egfr 70.7 >60 12 Laboratory test finding 02/12/2017 Erythrocyte Sed Rate 24 mm/Hr 0-40 C Reactive Protein 12.97 mg/L High < 5.00 13 Uric Acid 4.1 mg/dL 2.3-6.6 Protime W/ [...] Inr 10/23/2016 Prothrombin Time 32.5 Inr 2.7 Urine Culture And Sensitivities 10/08/2016 Urine Culture SEE RESULT BELOW 14 Urinalysis Profile 10/08/2016 Urine Color Dina Urine Appearance Cloudy Urine Specific [place] 1.019 1.010-1.030 Urine pH 5.0 5-9 Urine Urobilinogen Negative Negative Urine Ketones Negative Negative Urine Protein Negative Negative Urine Leukocytes 3+ Negative Urine Blood Negative Negative * * Negative 15 Urine Nitrite Negative Negative Urine Bilirubin Negative Negative Urine Glucose Negative Negative Urine White Blood Cell 3+(>20/hpf) Absent Urine Red Blood Cell Absent Absent Urine Bacteria Absent Absent Urine Squamous Epithelial Cell Present Absent Urine Microalbumin Random 10/08/2016 Urine Creatinine 83.63 mg/dL Ur Microalbumin (mg/L) 34.0 mg/L Urine Microalbumin/Creatinine 40.6 ug/mg High <31 Laboratory test finding 10/08/2016 Hemoglobin A1c 7.2 High 5-7 Protime W/ Inr 10/08/2016 Prothrombin Time 34.0 Inr 2.7 1 Because ethnic data is not always readily [...] 15-29 5 Kidney failure <15 (or dialysis) 2 [id number] 3 Desirable: <150 Borderline High: 150-199 High: 200-499 Very High: >500 4 Desirable: <200 Borderline High: 200-239 High: >239 5 Low: <40 Desirable: 40-60 High: >60 6 Desirable: <100 Near Optimal: 100-129 Borderline High: 130-159 High: 160-189 Very High: >189 7 Because ethnic data is not always readily [...] 15-29 5 Kidney failure <15 (or dialysis) 8 Therapeutic target for the treatment of diabetes mellitus patients is <7% HBA1C, and in selective patients <6.0%. Please refer to [place] [employer] diabetic care guidelines for further information. 9 Normal Range 180 to 914 Indeterminate Range 145 to 180 Deficient Range <145 10 Because ethnic data is not always [...] 5 Kidney failure <15 (or dialysis) 11 [facility] Severe Sepsis and Septic Shock Management Bundle Measure requires all lactic acids initially measuring >2.0 mmol/L be repeated. 12 Because ethnic data is not always readily [...] 15-29 5 Kidney failure <15 (or dialysis) 13 Acute inflammation: >10.00 14 SEE RESULT BELOW Name: MARGRET PACK : [address]: Chino Peraza NP Acct: [id number] Unit: [id number] AGE: 81 Location: [facility] Re10/08/16 SEX: F Status: REG REF SPEC: [id number] VAMSI: 10/08/16-[address]: [place] Peraza NP REQ: [id number] RECD: 10/08/16 STATUS: COMP _ SOURCE: URINE SPDESC: ORDERED: Urine Culture Procedure Result Reported Site Urine Culture Final 10/09/16- 1621 ML No growth of clinically significant organisms * ML - MAIN LAB (PSC1) . END OF REPORT * ML=Testing performed at Main Lab DEPARTMENT OF PATHOLOGY, [address] [place] [address] Eulalio Natarajan M.D. Director [facility] # [id number] 15 *Ascorbic acid is present which may interfere with detection of blood. Procedures Date CPT Code Description Status Comment 10/06/2017 Diabetic Retinal Eye Exam Completed 08/24/2017 24642 Stress Test Completed 08/24/2017 43897 Myocardial Perfusion Imaging Completed Tomographic (Spect) Multiple Studies 08/04/2017 Diabetic Foot Exam Completed 07/21/2017 88039 EKG Tracing & Interpretation Completed 06/17/2017 Diabetic Foot Exam Completed 06/04/2017 Mammogram Completed 04/21/2017 30965 EKG Tracing & Interpretation Completed 04/17/2017 27322 ECHO Transthoracic, Real-Time Completed 2D With Doppler And Color Flow 04/17/2017 35370 ECHO Transthoracic, Real-Time Completed 2D With Doppler And Color Flow 01/13/2017 Bone Mineral Density Test Completed 09/26/2016 Diabetic Retinal Eye Exam Completed 05/15/2016 Mammogram Completed 04/30/2016 33850 EKG Tracing & Interpretation Completed 04/21/2016 79279 ECHO Transthoracic, Real-Time Completed 2D With Doppler And Color Flow 05/11/2015 38256 EKG Tracing & Interpretation Completed 05/03/2015 83712 ECHO Transthoracic, Real-Time Completed 2D With Doppler And Color Flow 04/24/2014 34867 Myocardial Perfusion Imaging Completed Tomographic (Spect) Multiple Studies 04/24/2014 82775 Stress Test Completed 04/04/2014 47239 ECHO Transthoracic, Real-Time Completed 2D With Doppler And Color Flow 04/03/2014 91603 EKG Tracing & Interpretation Completed 03/16/2008 Colonoscopy Completed 7-10 yr repeat recommended Encounters Type Date Location Provider CPT E/M Dx Office Visit 11/18/2017 1:40p [facility] [place] [address] S00.81xD - Wilson S91.112S M89.8x8 M79.601 Office Visit 11/04/2017 3:40p [facility] [place] [address] Z79.84 [place] E11.9 Office Visit 10/27/2017 2:15p [facility] Rosalinda Drake, 00955 G47.33 Services Of [facility] LIANNA RN, [facility]- G47.10 Z68.33 Office Visit 08/26/2017 1:00p [facility] Gumaro Kelly, 27904 I77.810 Yasmeen Mathis, [facility], FASAK R06.02 I48.2 Office Visit 07/21/2017 2:00p [facility] Internal Medicine Celina Howell 33723 R06.02 - Brittny Mathis M79.671 K52.839 I48.91 Office Visit 07/10/2017 1:20p [facility] Internal Medicine Celina Howell 64637 Z00.00 - Brittny Mathis E11.9 I10 I48.2 K59.00 Office Visit 05/01/2017 2:20p [facility] [place] [address] M89.8x8 Wilson M79.671 Office Visit 04/21/2017 1:15p [facility] Gumaro Kelly, 72732 I77.810 Yasmeen Mathis, [facility], FASNC I48.2 Office Visit 04/10/2017 2:20p [facility] Internal Medicine eClina Howell 07817 E11.9 - Brittny Mathis I10 I71.2 Z12.31 Z79.01 H91.90 Office Visit 02/20/2017 2:00p [facility] [place] [address] R60.0 C.M.A. M25.572 Office Visit 02/12/2017 2:20p [facility] [place] [address] M25.572 Medicine Jorge Alberto Mart Office Visit 01/08/2017 2:00p [facility] Internal Celina Howell 54101 E11.9 Medicine - Brittny Mathis Z79.01 M48.45xS I10 M48.45xD I48.2 Office Visit 10/22/2016 2:00p Pul[facility]ology [facility] Sleep Rosalinda Drake, 09703 G47.33 Services Of [facility] JOHNATHAN DSOUZA, [facility] Office Visit 10/08/2016 3:00p [facility] Internal Medicine [place] Peraza, ARIAN 04751 E11.9 - Wilson I10 I48.2 Z79.01 S32.049D R31.9 Office Visit 07/28/2016 1:30p Neurosurgery Services Sienna Woodson PA-C [address]671 S32.049A Of [facility] Office Visit 04/30/2016 11:45a [facility] Gumaro Kelly, 38736 I48.2 Yasmeen Mathis, [facility], [facility] Office Visit 10/23/2015 2:30p [facility] Sleep Rosalinda Drake, 11914 G47.33 Services Of [facility] JOHNATHAN DSOUZA, [facility] G47.00 Office Visit 06/09/2015 3:28p [facility], Eva Jayant, 15925 J18.9 Hospitalists D.O. E11.9 A41.9 I10 Office Visit 06/08/2015 3:27p [facility], Eva Saba, 11661 J18.9 Hospitalists D.O. A41.9 E11.9 I10 Office Visit 06/07/2015 3:27p [facility],pc Eva Saba, 47511 J18.9 Hospitalists D.O. A41.9 E11.9 I10 Office Visit 06/06/2015 3:26p [facility],pc Volodymyr Orozco, 87647 J18.9 Hospitalists N.P. E11.9 A41.9 I10 Office Visit 05/11/2015 1:30p [facility] Gumaro Kelly, 88393 I48.91 Delfina, [facility], [facility] Office Visit 10/17/2014 2:30p [facility]ology [facility] Sleep Rosalinda Drake, 20095 327.23 Services Of [facility] JOHNATHAN DSOUZA, [facility] Office Visit 07/18/2014 1:00p [facility]ology [facility] Sleep Rosalinda Drake, 53266 327.23 Services Of [facility] JOHNATHAN DSOUZA, [facility] Office Visit 05/08/2014 12:00p [facility] Gumaro Kelly, 70324 427.31 Yasmeen Mathis, FAC, ELINAAK Office Visit 04/03/2014 12:15p [facility] [place]um[facility] Kelly, 22251 427.31 Yasmeen Mathis, FAC, [facility] 786.09 Plan of Care Future Appointment(s):02/15/2018 2:40 pm - [place] Peraza NP at [facility] Internal Medicine [place]11/02/2018 1:45 pm - Rosalinda Drake DNP, RN, [employer]- at [facility]07/12/2018 3:00 pm - Celina Howell M.D. at [facility]12/03/2017 - [place] Peraza, NPR06.00 Dyspnea, unspecifiedNew Medication:OximeterComments:I recommend trying to go without the pain medication tonight to see if there is any difference in the morning. I am prescribing an oximeter. If you are feeling short of breath check your oxygen level. Once your are able to restart the CPAP this may improve your symptoms. try to avoid the pain medication at night until you can resume the CPAP.I am ordering a chest xray to further evaluate.
--- OUTSIDE RECORDS SUMMARY | 2017-12-04 13:11 | XMS REPORT ---
:1935 External Reference #:[id number] Author Organization [facility] Address [address] [place] [address] [place] [address] Phone [phone] Care Team Providers Name Role Phone Celina Howell MD Primary Care Physician Unavailable Payers Type Date Identification Numbers Payment Provider Subscriber Commercial Policy Number: [id number] Amer Prog/Todays Options Margret Yu PayID: [id number] [address] [address] Attn: [place] [address] Advance Directives Type Date Description Status Comment Other Directive 04/25/2017 Health Care Proxy Current and Verified Problems Date Description Provider Status Onset: 04/03/2014 Atrial fibrillation Gumaro Kelyl M.D., Active CARMINE, FELIZ Onset: 03/16/2002 Obstructive sleep apnea of adult Rosalinda Drake DNP, RN, Active SPORT PSYCHOLOGIST-BC Onset: 10/08/2016 Type 2 diabetes mellitus [place] [...] Date Family Member(s) Problem(s) Comments General Father [place] 66, 67. 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 Denies alcohol use Smoking Patient [...] 1 tab by Isidoro Evans mouth bid CERTIFIED ORTHOTIST PRACTICE MANAGER Rolling Active 1units Use while M48.45xS Acosta Evans With 018 ambulating CERTIFIED ORTHOTIST PRACTICE MANAGER Seat M25.572 M79.671 Hydrochlorothiazide 04/20/2017 Active Tablets [...] Hernandez, mg mouth every Yina, 4-6 hours SPORT PSYCHOLOGIST-BC as needed pain Omeprazole Active Capsules DR [...] Active Gel 1% as needed Yina Hernandez, SPORT PSYCHOLOGIST-BC Amoxicillin Active Capsules 500mg take 4 Unknown [...] Hx Gel 1% 100gm apply 2 M Lund 04/10/2017 grams to 2 ARIAN Peraza affected 5 area twice . daily 5 7 2 Metformin HCL 10/08/2016 - Hx Tablets 1000m 60tabs 1 tabs in [place] 02/13/2017 g the morning ARIAN Peraza 1 tab evening Oxycodone HCL 10/08/2016 - Hx Tablets 10mg 40tabs take one S Lund 04/10/2017 tablet by 3 ARIAN Peraza mouth every 2 6 hours as . needed for 0 pain; 4 maximum 9 daily D dose=4 Cholestyramine 10/25/2015 - Hx Packet 4gm 1 packet Unknown 10/21/2016 twice a day Melatonin 10/23/2015 - Hx Capsules 1mg 30caps 1-2 G Rosalinda 10/21/2016 capsules 1 4 Drake, hour before 7 DNP, RN, bed if . SPORT PSYCHOLOGIST-BC needed 0 0 Coumadin - Hx Tablets 5mg 45tabs 1/2 tablet [place] 11/27/2016 daily or as ARIAN Peraza directed [...] Injection Gumaro Hernandez 99M 018 Kelly, Tetrofosmin, MDaniel, FACC, Per Unit Dose FASNC Up To 40 Millicuries Influenza,Unsp Administered Injection Unknown ecified 017 Inj, Administered Injection Gumaro Hernandez Regadenoson, 015 Kelly, 0.1 MG M.D., FACC, FASNC Technetium TC Administered Injection Gumaro Hernandez 99M 015 Kelly, Tetrofosmin, MSarah., FACC, Per Unit Dose FASNC Up To 40 Millicuries Technetium TC Administered Injection Ica Nuclear 99M 015 Schedule Tetrofosmin, Per Unit Dose Up To 40 Millicuries Vital Signs Date Vital Result Comment 11/26/2017 Height 62 inches 5'2" Weight 188.00 [...] Test Date Test Result H/L Range Note Comp Metabolic Panel 11/15/2017 Sodium 139 mmol/L [...] Non- 42.9 >60 Egfr 51.9 >60 1 Inr/Protime 11/15/2017 Inr 2.85 High 0.77-1.02 Laboratory test finding 11/15/2017 Partial Thrombo Time 39.3 seconds High 26.0-36.3 PTT CBC Auto Diff 11/15/2017 White Blood Count [...] Blood Cells % 0.2 Protime W/ Inr 11/09/2017 Prothrombin Time 30.9 [...] Inr 02/16/2017 Prothrombin Time 23.0 Inr 2.7 Laboratory test finding 02/12/2017 Erythrocyte Sed Rate 24 mm/Hr 0-40 C Reactive Protein 12.97 mg/L High < 5.00 12 Uric Acid 4.1 mg/dL 2.3-6.6 CBC Auto Diff 02/12/2017 White Blood Count [...] Egfr Non- 55.0 >60 Egfr 70.7 >60 13 Protime W/ Inr 02/09/2017 Prothrombin Time 41.6 [...] 10/23/2016 Prothrombin Time 32.5 Inr 2.7 Urine Microalbumin Random 10/08/2016 Urine Creatinine 83.63 mg/dL Ur Microalbumin (mg/L) 34.0 mg/L Urine Microalbumin/Creatinine 40.6 ug/mg High <31 Urinalysis Profile 10/08/2016 Urine Color Dina Urine Appearance Cloudy Urine Specific [place] 1.019 1.010-1.030 Urine pH 5.0 5-9 Urine Urobilinogen Negative Negative Urine Ketones Negative Negative Urine Protein Negative Negative Urine Leukocytes 3+ Negative Urine Blood Negative Negative * * Negative 14 Urine Nitrite Negative Negative Urine Bilirubin Negative Negative Urine Glucose Negative Negative Urine White Blood Cell 3+(>20/hpf) Absent Urine Red Blood Cell Absent Absent Urine Bacteria Absent Absent Urine Squamous Epithelial Cell Present Absent Urine Culture And 10/08/2016 Urine Culture SEE RESULT BELOW 15 Sensitivities Laboratory test finding 10/08/2016 Hemoglobin A1c 7.2 [...] 5 Kidney failure <15 (or dialysis) 2 [id number] 3 Desirable: <150 Borderline High: 150-199 High: [...] in selective patients <6.0%. Please refer to [place] Diabetes Association diabetic care guidelines for further [...] 5 Kidney failure <15 (or dialysis) 11 [facility] Severe Sepsis and Septic Shock Management Bundle Measure requires all lactic acids initially measuring >2.0 mmol/L be repeated. 12 Acute inflammation: >10.00 13 Because ethnic data is not always readily [...] 15-29 5 Kidney failure <15 (or dialysis) 14 *Ascorbic acid is present which may interfere with detection of blood. 15 SEE RESULT BELOW Name: RAMONESBMARGRET H : [address]: Chino Peraza CERTIFIED ORTHOTIST PRACTICE MANAGER Acct: [id number] Unit: [id number] AGE: 81 Location: [facility] Re10/08/16 SEX: F Status: REG REF SPEC: [id number] VAMSI: 10/08/16-[address]: Chino Peraza NP REQ: [id number] RECD: 10/08/16 STATUS: COMP _ SOURCE: URINE SPDESC: ORDERED: Urine Culture Procedure Result Reported Site Urine Culture Final 10/09/16- 1621 ML No growth of clinically significant organisms * ML - MAIN LAB ([facility]) . END OF REPORT * ML=Testing performed at Main Lab DEPARTMENT OF PATHOLOGY, [address] [place] [address] Eulalio Natarajan M.D. Director [facility] # [id number] Procedures Date CPT Code Description Status Comment 10/06/2017 Diabetic Retinal Eye Exam Completed 08/24/2017 57597 Stress Test Completed 08/24/2017 22487 Myocardial Perfusion Imaging Completed Tomographic (Spect) Multiple Studies 08/04/2017 Diabetic Foot Exam Completed 07/21/2017 74168 EKG Tracing & Interpretation Completed 06/17/2017 Diabetic Foot Exam Completed 06/04/2017 Mammogram Completed 04/21/2017 49268 EKG Tracing & Interpretation Completed 04/17/2017 27540 ECHO Transthoracic, Real-Time Completed 2D With Doppler And Color Flow 04/17/2017 84235 ECHO Transthoracic, Real-Time Completed 2D With Doppler And Color Flow 01/13/2017 Bone Mineral Density Test Completed 09/26/2016 Diabetic Retinal Eye Exam Completed 05/15/2016 Mammogram Completed 04/30/2016 29108 EKG Tracing & Interpretation Completed 04/21/2016 05082 ECHO Transthoracic, Real-Time Completed 2D With Doppler And Color Flow 05/11/2015 71346 EKG Tracing & Interpretation Completed 05/03/2015 34341 ECHO Transthoracic, Real-Time Completed 2D With Doppler And Color Flow 04/24/2014 53925 Myocardial Perfusion Imaging Completed Tomographic (Spect) Multiple Studies 04/24/2014 58446 Stress Test Completed 04/04/2014 94470 ECHO Transthoracic, Real-Time Completed 2D With Doppler And Color Flow 04/03/2014 13477 EKG Tracing & Interpretation Completed 03/16/2008 Colonoscopy Completed 7-10 yr repeat recommended Encounters Type Date Location Provider CPT E/M Dx Office Visit 11/18/2017 1:40p [facility] [place] [address] S00.81xD - Brittny S91.112S M89.8x8 M79.601 Office Visit 11/04/2017 3:40p [facility] [place] [address] Z79.84 [place] E11.9 Office Visit 10/27/2017 2:15p [facility] Rosalinda Drake, 62541 G47.33 Services Of [facility] LIANNA RN, SPORT PSYCHOLOGIST-BC G47.10 Z68.33 Office Visit 08/26/2017 1:00p [facility] Of Gumaro Kelly, 41071 I77.810 Yasmeen Mathis, [facility] R06.02 I48.2 Office Visit 07/21/2017 2:00p [facility] Internal Medicine Celina Howell, 64378 R06.02 - [place] M.DChela M79.671 K52.839 I48.91 Office Visit 07/10/2017 1:20p [facility] Internal Medicine Celina Howell, 52144 Z00.00 - [place] M.Idalia E11.9 I10 I48.2 K59.00 Office Visit 05/01/2017 2:20p [facility] [place] [address] M89.8x8 [place] M79.671 Office Visit 04/21/2017 1:15p [facility] Of Gumaro Hernandez Kelly, 12278 I77.810 Yasmeen Mathis, [facility], [facility] I48.2 Office Visit 04/10/2017 2:20p [facility] Internal Medicine Celina Howell 75248 E11.9 - [place] M.DChela I10 I71.2 Z12.31 Z79.01 H91.90 Office Visit 02/20/2017 2:00p [place] [address] R60.0 C.M.A. M25.572 Office Visit 02/12/2017 2:20p [facility] [place] [address] M25.572 Medicine - [place] Office Visit 01/08/2017 2:00p [facility] Internal Celina Howell 44385 E11.9 Medicine - [place] M.Idalia Z79.01 M48.45xS I10 M48.45xD I48.2 Office Visit 10/22/2016 2:00p Pulmonology And Sleep Rosalinda Drake, 38873 G47.33 Services Of [facility] LIANNA RN, [facility] Office Visit 10/08/2016 3:00p [facility] [place] [address] E11.9 - [place] I10 I48.2 Z79.01 S32.049D R31.9 Office Visit 07/28/2016 1:30p Neurosurgery Services Sienna Woodson PA-C 18490 S32.049A Of [facility] Office Visit 04/30/2016 11:45a [facility] Of Gumarorosa Kelly, 87897 I48.2 Yasmeen Mathis, FLAKO, [facility] Office Visit 10/23/2015 2:30p Pul[facility]ology [facility] Sleep Rosalinda Drake, 76387 G47.33 Services Of [facility] JOHNATHAN DSOUZA, [facility] G47.00 Office Visit 06/09/2015 3:28p [facility] Eva Jayant, 60441 J18.9 Hospitalists D.O. E11.9 A41.9 I10 Office Visit 06/08/2015 3:27p [facility] Eva Jayant, 81741 J18.9 Hospitalists D.O. A41.9 E11.9 I10 Office Visit 06/07/2015 3:27p [facility] Evabeena Adamsonr, 25480 J18.9 Hospitalists D.O. A41.9 E11.9 I10 Office Visit 06/06/2015 3:26p [facility] Volodymyr Ernesto, 15166 J18.9 Hospitalists N.P. E11.9 A41.9 I10 Office Visit 05/11/2015 1:30p [facility] Gumaro Kelly, 64574 I48.91 Delfina, FLAKO, [facility] Office Visit 10/17/2014 2:30p Pul[facility]ology [facility] Sleep Rosalinda Drake, 29618 327.23 Services Of [facility] JOHNATHAN DSOUZA, [facility] Office Visit 07/18/2014 1:00p [facility]ology [facility] Sleep Rosalinda Drake, 73818 327.23 Services [facility] DSOUZA, [facility] Office Visit 05/08/2014 12:00p [facility] Of Gumaro Kelly, 78777 427.31 Yasmeen Mathis, CARMINE, [facility] Office Visit 04/03/2014 12:15p [facility] Of Gumaro Kelly, 45719 427.31 Yasmeen Mathis, FLAKO, [facility] 786.09 Plan of Care Future Appointment(s):02/15/2018 2:40 pm - Chino Peraza NP at [facility] [address] 1:45 pm - Rosalinda Drake DNP, RN, SPORT PSYCHOLOGIST-BC at [facility]ology [facility] Sleep Services Of [facility]07/12/2018 3:00 pm - Celina Howell M.D. at [facility] Medicine - Xloqwlaaq65/13/2018 - Chino Peraza, NPS91.112S Lac w/o fb of left great toe w/o damage to nail, iyxkwavX25.601 Pain in right armComments:If the pain is not improving or worsening I would recommend that you see orthopedics.
--- OUTSIDE RECORDS SUMMARY | 2017-12-04 13:11 | XMS REPORT ---
:1935 External Reference #:[id number] Author Organization [facility] Address [address] [place] [address] [place] [address] Phone [phone] Care Team Providers Name Role Phone Celina Howell MD Primary Care Physician Unavailable Payers Type Date Identification Numbers Payment Provider Subscriber Commercial Policy Number: [id number] Amer Prog/Todays Options Margret Pack PayID: [id number] [address] [address] Attn: [place] [address] Advance Directives Type Date Description Status Comment Other Directive 04/25/2017 Health Care Proxy Current and Verified Problems Date Description Provider Status Onset: 04/03/2014 Atrial fibrillation Gumaro Kelly M.D., Active CARMINE, FELIZ Onset: 03/16/2002 Obstructive sleep apnea of adult Rosalinda Drake DNP, RN, Active SECURITY INCIDENT RESPONSE SPECIALIST-BC Onset: 10/08/2016 Type 2 diabetes mellitus [place] [...] Date Family Member(s) Problem(s) Comments General Father [place] 66, 67. 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 Denies alcohol use Smoking Patient [...] 1 tab by Isidoro Evans mouth bid LEAD WAREHOUSE ASSOCIATE Rolling Active 1units Use while M48.45xS Acosta Evans With 018 ambulating LEAD WAREHOUSE ASSOCIATE Seat M25.572 M79.671 Hydrochlorothiazide 04/20/2017 Active Tablets [...] Hernandez, mg mouth every Yina, 4-6 hours SECURITY INCIDENT RESPONSE SPECIALIST-BC as needed pain Omeprazole Active Capsules DR [...] Active Gel 1% as needed Yina Hernandez, SECURITY INCIDENT RESPONSE SPECIALIST-BC Amoxicillin Active Capsules 500mg take 4 Unknown [...] Hx Gel 1% 100gm apply 2 M Ant[place] 04/10/2017 grams to 2 ARIAN Peraza affected 5 area twice . daily 5 7 2 Metformin HCL 10/08/2016 - Hx Tablets 1000m 60tabs 1 tabs in [place] 02/13/2017 g the morning ARIAN Peraza 1 tab evening Oxycodone HCL 10/08/2016 - Hx Tablets 10mg 40tabs take one S [place] 04/10/2017 tablet by 3 ARIAN Peraza mouth every 2 6 hours as . needed for 0 pain; 4 maximum 9 daily D dose=4 Cholestyramine 10/25/2015 - Hx Packet 4gm 1 packet Unknown 10/21/2016 twice a day Melatonin 10/23/2015 - Hx Capsules 1mg 30caps 1-2 G Rosalinda 10/21/2016 capsules 1 4 Darke, hour before 7 DNP, RN, bed if . SECURITY INCIDENT RESPONSE SPECIALIST-BC needed 0 0 Coumadin - Hx Tablets 5mg 45tabs 1/2 tablet [place] 11/27/2016 daily or as ARIAN Peraza directed [...] Injection Gumaro Hernandez 99M 018 Kelly, Tetrofosmin, MSarah., FACC, Per Unit Dose [...] Millicuries Vital Signs Date Vital Result Comment 11/18/2017 Height 62 inches 5'2" Weight 186.00 [...] Inr 02/09/2017 Prothrombin Time 41.6 Inr 3.5 Laboratory test finding 01/08/2017 Hemoglobin A1c 7.0 5-7 Protime W/ Inr 01/08/2017 Prothrombin Time 30.2 Inr 2.5 Protime W/ Inr 12/25/2016 Prothrombin Time 26.8 [...] Color Dina Urine Appearance Cloudy Urine Specific [place] 1.019 1.010-1.030 Urine pH 5.0 5-9 Urine [...] 5 Kidney failure <15 (or dialysis) 2 [id number] 3 Desirable: <150 Borderline High: 150-199 High: [...] in selective patients <6.0%. Please refer to [place] Diabetes Association diabetic care guidelines for further [...] 5 Kidney failure <15 (or dialysis) 11 [facility] Severe Sepsis and Septic Shock Management Bundle [...] PACK : [address]: Chino Peraza LEAD WAREHOUSE ASSOCIATE Acct: [id number] Unit: [id number] AGE: 81 Location: [facility] Re10/08/16 SEX: F Status: REG REF SPEC: [id number] VAMSI: 10/08/16-[address]: Chino Peraza NP REQ: [id number] RECD: 10/08/16 STATUS: COMP _ SOURCE: URINE SPDESC: ORDERED: Urine Culture Procedure Result Reported Site Urine Culture Final 10/09/16- 1621 ML No growth of clinically significant organisms * ML - MAIN LAB ([facility]) . END OF REPORT * ML=Testing performed at Main Lab DEPARTMENT OF PATHOLOGY, [address] [place] [address] Eulalio Natarajan M.D. Director [facility] # [id number] 15 *Ascorbic acid is present which may interfere with detection of blood. Procedures Date CPT Code Description Status Comment 10/06/2017 Diabetic Retinal Eye Exam Completed 08/24/2017 36977 Stress Test Completed 08/24/2017 84521 Myocardial Perfusion Imaging Completed Tomographic (Spect) Multiple Studies 08/04/2017 Diabetic Foot Exam Completed 07/21/2017 26163 EKG Tracing & Interpretation Completed 06/17/2017 Diabetic Foot Exam Completed 06/04/2017 Mammogram Completed 04/21/2017 81364 EKG Tracing & Interpretation Completed 04/17/2017 22292 ECHO Transthoracic, Real-Time Completed 2D With Doppler And Color Flow 04/17/2017 85659 ECHO Transthoracic, Real-Time Completed 2D With Doppler And Color Flow 01/13/2017 Bone Mineral Density Test Completed 09/26/2016 Diabetic Retinal Eye Exam Completed 05/15/2016 Mammogram Completed 04/30/2016 98755 EKG Tracing & Interpretation Completed 04/21/2016 13748 ECHO Transthoracic, Real-Time Completed 2D With Doppler And Color Flow 05/11/2015 12881 EKG Tracing & Interpretation Completed 05/03/2015 50309 ECHO Transthoracic, Real-Time Completed 2D With Doppler And Color Flow 04/24/2014 36230 Myocardial Perfusion Imaging Completed Tomographic (Spect) Multiple Studies 04/24/2014 97003 Stress Test Completed 04/04/2014 30978 ECHO Transthoracic, Real-Time Completed 2D With Doppler And Color Flow 04/03/2014 26188 EKG Tracing & Interpretation Completed 03/16/2008 Colonoscopy Completed 7-10 yr repeat recommended Encounters Type Date Location Provider CPT E/M Dx Office Visit 11/04/2017 3:40p [facility] [place] [address] Z79.84 Brittny E11.9 Office Visit 10/27/2017 2:15p Pulmonology And Sleep Rosalinda Drake, 09853 G47.33 Services Of Yasmeen DSOUZA RN, SECURITY INCIDENT RESPONSE SPECIALIST- G47.10 Z68.33 Office Visit 08/26/2017 1:00p [facility] Of Gumaro Kelly 84402 I77.810 Yasmeen Mathis, FAC, [facility] R06.02 I48.2 Office Visit 07/21/2017 2:00p [facility] Internal Medicine Celina Howell 28569 R06.02 - Brittny Mathis M79.671 K52.839 I48.91 Office Visit 07/10/2017 1:20p [facility] Internal Medicine Celina Howell, 13981 Z00.00 - Brittny Mathis E11.9 I10 I48.2 K59.00 Office Visit 05/01/2017 2:20p [facility] [place] [address] M89.8x8 [place] M79.671 Office Visit 04/21/2017 1:15p [facility] Of Gumaro Kelly, 36676 I77.810 Yasmeen Mathis, [facility], [facility] I48.2 Office Visit 04/10/2017 2:20p [facility] Internal Medicine Celina Howell, 97404 E11.9 - Brittny Mathis I10 I71.2 Z12.31 Z79.01 H91.90 Office Visit 02/20/2017 2:00p [place] [address] R60.0 C.M.A. M25.572 Office Visit 02/12/2017 2:20p [facility] [place] [address] M25.572 Medicine - [place] Office Visit 01/08/2017 2:00p [facility] Internal Celina Howell, 79726 E11.9 Medicine - Brittny Mathis Z79.01 M48.45xS I10 M48.45xD I48.2 Office Visit 10/22/2016 2:00p Pulmonology And Sleep Rosalinda Drake, 75960 G47.33 Services Of [facility] JOHNATHAN DSOUZA, SECURITY INCIDENT RESPONSE SPECIALIST- Office Visit 10/08/2016 3:00p [facility] [place] [address] E11.9 - [place] I10 I48.2 Z79.01 S32.049D R31.9 Office Visit 07/28/2016 1:30p Neurosurgery Services Sienna Woodson PA-C 95419 S32.049A Of [facility] Office Visit 04/30/2016 11:45a [facility] Of Gumaro Kelly, 66020 I48.2 Yasmeen Mathis, [facility], [facility] Office Visit 10/23/2015 2:30p Pulmonology And Sleep Rosalinda Drake, 99561 G47.33 Services Of [facility] JOHNATHAN DSOUZA, SECURITY INCIDENT RESPONSE SPECIALIST-BC G47.00 Office Visit 06/09/2015 3:28p [facility] Eva Jayant, 47024 J18.9 Hospitalists D.O. E11.9 A41.9 I10 Office Visit 06/08/2015 3:27p [facility] Eva Jayant, 82106 J18.9 Hospitalists D.O. A41.9 E11.9 I10 Office Visit 06/07/2015 3:27p [facility] Eva Jayant, 71046 J18.9 Hospitalists D.O. A41.9 E11.9 I10 Office Visit 06/06/2015 3:26p [facility] Volodymyr Orozco, 98709 J18.9 Hospitalists N.P. E11.9 A41.9 I10 Office Visit 05/11/2015 1:30p [facility] Gumaro Kelly, 59848 I48.91 Delfina, [facility], [facility] Office Visit 10/17/2014 2:30p [facility] Sleep Rosalinda Drake, 37235 327.23 Services Of [facility] JOHNATHAN DSOUZA, [facility] Office Visit 07/18/2014 1:00p Pulmonology And Sleep Rosailnda Drake, 46624 327.23 Services Of [facility] JOHNATHAN DSOUZA, [facility] Office Visit 05/08/2014 12:00p [facility] Of Gmuaro Kelly, 32159 427.31 Yasmeen Mathis, [facility], [facility] Office Visit 04/03/2014 12:15p [facility] Of Gumarorosa Kelly, 03330 427.31 [facility] Delfina, [facility], [facility] 786.09 Plan of Care Future Appointment(s):11/25/2017 2:40 pm - Chino Peraza NP at [facility]02/15/2018 2:40 pm - Chino Peraza NP at [facility]11/02/2018 1:45 pm - Rosalinda Drake DNP, RN, [facility] at [facility] Services Of [facility]07/12/2018 3:00 pm - Celina Howell M.D. at [facility]11/18/2017 - Chino Karmen, NPS00.81xD Abrasion of other part of head, subsequent encounterComments:You can apply the antibiotic ointment to the abrasions on your face.S91.112S [place] w/o fb of left great toe w/o damage to nail, sequelaComments:If Dr. Oconnell cannot reomve the sutures next week we will do it on Thursday.Follow up:f/u 11/25 for suture ecofjguW81.8x8 Other specified disorders of bone, other siteComments:THis is likely related to the fall and a strain of your ribs.It is important to continue taking deepbreath to prevent pneumonia.M79.601 Pain in right arm
--- OUTSIDE RECORDS SUMMARY | 2017-12-04 13:12 | XMS REPORT ---
:1935 External Reference #:[id number] Author Organization [facility] Address [address] [place] [address] [place] [address] Phone [phone] Care Team Providers Name Role Phone Celina Howell MD Primary Care Physician Unavailable Payers Type Date Identification Numbers Payment Provider Subscriber Commercial Policy Number: [id number] Amer Prog/Todays Options Margret Pack PayID: [id number] [address] [address] Attn: [place] [address] Advance Directives Type Date Description Status Comment Other Directive 04/25/2017 Health Care Proxy Current and Verified Problems Date Description Provider Status Onset: 04/03/2014 Atrial fibrillation Gumaro Kelly M.D., Active CARMINE, FELIZ Onset: 03/16/2002 Obstructive sleep apnea of adult Rosalinda Drake DNP, RN, Active PASTRY COOK HELPER-BC Onset: 10/08/2016 Type 2 diabetes mellitus [place] [...] Date Family Member(s) Problem(s) Comments General Father AL 66, 67. 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 daily 5 7 2 Metformin HCL 10/08/2016 - Hx Tablets 1000m 60tabs 1 tabs in [place] 02/13/2017 g the morning ARIAN Peraza 1 tab evening Oxycodone HCL 10/08/2016 - Hx Tablets 10mg 40tabs take one S [place] 04/10/2017 tablet by 3 ARIAN Peraza mouth every 2 6 hours as . needed for 0 pain; 4 maximum 9 daily D dose=4 Cholestyramine 10/25/2015 - Hx Packet 4gm 1 packet Unknown 10/21/2016 twice a day Melatonin 10/23/2015 - Hx Capsules 1mg 30caps 1-2 G Rosalinda 10/21/2016 capsules 1 4 Drake, hour before 7 DNP, RN, bed if . PASTRY COOK HELPER- needed 0 0 Coumadin - Hx Tablets 5mg 45tabs 1/2 tablet [place] 11/27/2016 daily or as ARIAN Peraza directed [...] Injection Gumaro Hernandez 99M 018 Kelly, Tetrofosmin, Joshua., FACC, Per Unit Dose FASNC Up To 40 Millicuries Influenza,Unsp Administered Injection Unknown ecified 017 Inj, Administered Injection Gumaro Hernandez Regadenoson, 015 Kelly, 0.1 MG M.D., FACC, FASNC Technetium TC Administered Injection Gumaro Hernandez 99M 015 Kelly, Tetrofosmin, MChelaD., FACC, Per Unit Dose FASNC Up To 40 Millicuries Technetium TC Administered Injection Ica Nuclear 99M 015 Schedule Tetrofosmin, Per Unit Dose Up To 40 Millicuries Vital Signs Date Vital Result Comment 11/04/2017 Height 62 inches 5'2" Weight 187.00 [...] Test Date Test Result H/L Range Note Laboratory test finding 11/04/2017 Hemoglobin A1c 7.3 [...] Reactive Protein 12.97 mg/L High < 5.00 10 Uric Acid 4.1 mg/dL 2.3-6.6 CBC Auto [...] Egfr Non- 55.0 >60 Egfr 70.7 >60 11 Protime W/ Inr 02/09/2017 Prothrombin Time 41.6 [...] Color Dina Urine Appearance Cloudy Urine Specific [place] 1.019 1.010-1.030 Urine pH 5.0 5-9 Urine Urobilinogen Negative Negative Urine Ketones Negative Negative Urine Protein Negative Negative Urine Leukocytes 3+ Negative Urine Blood Negative Negative * * Negative 12 Urine Nitrite Negative Negative Urine Bilirubin Negative Negative Urine Glucose Negative Negative Urine White Blood Cell 3+(>20/hpf) Absent Urine Red Blood Cell Absent Absent Urine Bacteria Absent Absent Urine Squamous Epithelial Cell Present Absent Urine Culture And 10/08/2016 Urine Culture SEE RESULT BELOW 13 Sensitivities Laboratory test finding 10/08/2016 Hemoglobin A1c 7.2 High 5-7 Protime W/ Inr 10/08/2016 Prothrombin Time 34.0 Inr 2.7 1 Desirable: <150 Borderline High: 150-199 High: [...] in selective patients <6.0%. Please refer to [place] Diabetes Association diabetic care guidelines for further [...] 5 Kidney failure <15 (or dialysis) 9 [facility] Severe Sepsis and Septic Shock Management Bundle Measure requires all lactic acids initially measuring >2.0 mmol/L be repeated. 10 Acute inflammation: >10.00 11 Because ethnic data is not always readily [...] 15-29 5 Kidney failure <15 (or dialysis) 12 *Ascorbic acid is present which may interfere with detection of blood. 13 SEE RESULT BELOW Name: MARGRET PACK : [address]: [place] Peraza NP Acct: [id number] Unit: [id number] AGE: 81 Location: [facility] Re10/08/16 SEX: F Status: REG REF SPEC: [id number] VAMSI: 10/08/16-[address]: [place] Peraza NP REQ: [id number] RECD: 10/08/16 STATUS: COMP _ SOURCE: URINE SPDESC: ORDERED: Urine Culture Procedure Result Reported Site Urine Culture Final 10/09/16- 1621 ML No growth of clinically significant organisms * ML - MAIN LAB (PSC1) . END OF REPORT * ML=Testing performed at Main Lab DEPARTMENT OF PATHOLOGY, [address] [place] [address] Eulalio Natarajan M.D. Director [facility] # [id number] Procedures Date CPT Code Description Status Comment 10/06/2017 Diabetic Retinal Eye Exam Completed 08/24/2017 06172 Stress Test Completed 08/24/2017 53593 Myocardial Perfusion Imaging Completed Tomographic (Spect) Multiple Studies 08/04/2017 Diabetic Foot Exam Completed 07/21/2017 26556 EKG Tracing & Interpretation Completed 06/17/2017 Diabetic Foot Exam Completed 06/04/2017 Mammogram Completed 04/21/2017 05064 EKG Tracing & Interpretation Completed 04/17/2017 31937 ECHO Transthoracic, Real-Time Completed 2D With Doppler And Color Flow 04/17/2017 70406 ECHO Transthoracic, Real-Time Completed 2D With Doppler And Color Flow 01/13/2017 Bone Mineral Density Test Completed 09/26/2016 Diabetic Retinal Eye Exam Completed 05/15/2016 Mammogram Completed 04/30/2016 51298 EKG Tracing & Interpretation Completed 04/21/2016 87000 ECHO Transthoracic, Real-Time Completed 2D With Doppler And Color Flow 05/11/2015 86975 EKG Tracing & Interpretation Completed 05/03/2015 88456 ECHO Transthoracic, Real-Time Completed 2D With Doppler And Color Flow 04/24/2014 17062 Myocardial Perfusion Imaging Completed Tomographic (Spect) Multiple Studies 04/24/2014 13180 Stress Test Completed 04/04/2014 36781 ECHO Transthoracic, Real-Time Completed 2D With Doppler And Color Flow 04/03/2014 02737 EKG Tracing & Interpretation Completed 03/16/2008 Colonoscopy Completed 7-10 yr repeat recommended Encounters Type Date Location Provider CPT E/M Dx Office Visit 10/27/2017 Pul[facility]ology [facility] Sleep Rosalinad Drake, 61566 G47.33 2:15p Services Of Yasmeen DSOUZA RN, PASTRY COOK HELPER-BC G47.10 Z68.33 Office Visit 08/26/2017 1:00p [facility] [place] Kelly, 77557 I77.810 Yasmeen Mathis, [facility], FASAR R06.02 I48.2 Office Visit 07/21/2017 2:00p [facility] Internal Medicine Celina Howell 35103 R06.02 - [place] Delfina M79.671 K52.839 I48.91 Office Visit 07/10/2017 1:20p [facility] Internal Medicine Celina Howell 54559 Z00.00 - [place] Delfina E11.9 I10 I48.2 K59.00 Office Visit 05/01/2017 2:20p [facility] Internal [place] [address] M89.8x8 Olive M79.671 Office Visit 04/21/2017 1:15p [facility] Gum[facility] David Kelly, 25582 I77.810 Yasmeen Mathis, [facility], FASNC I48.2 Office Visit 04/10/2017 2:20p [facility] Internal Medicine Celina Howell 92931 E11.9 - Olive M.Idalia I10 I71.2 Z12.31 Z79.01 H91.90 Office Visit 02/20/2017 2:00p [facility] [address] R60.0 C.M.A. M25.572 Office Visit 02/12/2017 2:20p [facility] [place] [address] M25.572 Medicine - Olive Office Visit 01/08/2017 2:00p [facility] Internal Celina Howell 70100 E11.9 Medicine - [place] Delfina Z79.01 M48.45xS I10 M48.45xD I48.2 Office Visit 10/22/2016 2:00p Pulmonology And Sleep Rosalinda Drake, 40634 G47.33 Services Of [facility] LIANNA RN, PASTRY COOK HELPER- Office Visit 10/08/2016 3:00p [facility] [place] [address] E11.9 - Olive I10 I48.2 Z79.01 S32.049D R31.9 Office Visit 07/28/2016 1:30p Neurosurgery Services Sienna Woodson PA-C 50843 S32.049A Of [facility] Office Visit 04/30/2016 11:45a [facility]um[facility] David Kelly, 14972 I48.2 Yasmeen Mathis, FLAKO, [facility] Office Visit 10/23/2015 2:30p [facility]ology [facility] Sleep Rosalinda Drake, 07405 G47.33 Services Of [facility] JOHNATHAN DSOUZA, [facility] G47.00 Office Visit 06/09/2015 3:28p [facility] Eva Jayant, 88585 J18.9 Hospitalists D.O. E11.9 A41.9 I10 Office Visit 06/08/2015 3:27p [facility] Eva Jayant, 38620 J18.9 Hospitalists D.O. A41.9 E11.9 I10 Office Visit 06/07/2015 3:27p [facility] Eva Jayant, 14005 J18.9 Hospitalists D.O. A41.9 E11.9 I10 Office Visit 06/06/2015 3:26p [facility] Volodymyr Ernesto, 45716 J18.9 Hospitalists N.P. E11.9 A41.9 I10 Office Visit 05/11/2015 1:30p [facility] Gumaro Kelly, 65637 I48.91 Delfina, FLAKO, [facility] Office Visit 10/17/2014 2:30p Pul[facility]ology [facility] Sleep Rosalinda Drake, 70108 327.23 Services Of [facility] JOHNATHAN DSOUZA, [facility] Office Visit 07/18/2014 1:00p Pulmonology [facility] Sleep Rosalinda Drake, 38436 327.23 Services Of [facility] JOHNATHAN DSOUZA, [facility] Office Visit 05/08/2014 12:00p [facility] Kelly, 72071 427.31 Yasmeen Mathis, [facility], [facility] Office Visit 04/03/2014 12:15p [facility] [place] Kelly, 87859 427.31 Yasmeen Mathis, CARMINE, [facility] 786.09 Plan of Care Future Appointment(s):02/15/2018 2:40 pm - [place] Peraza NP at [facility] Internal Medicine [facility]11/02/2018 1:45 pm - Rosalinda Drake, DNP, RN, PASTRY COOK HELPER-BC at Pulmonology [facility] Sleep Services Of [facility]07/12/2018 3:00 pm - Celina Howell M.D. at [facility] Internal Medicine - Shymurkif63/22/2018 - Chino Peraza NPE11.9 Type 2 diabetes mellitus without complicationsNew Labs:Urine Microalbumin RandomComments:Your A1c is 7.3 up from 7.0. Try to make sure you are limiting carbohydrate intake in diet.Follow up:3 months, 20 min RZ or LCRecommendations: See your sequencing machine operator every year. It is OK to go every 2 years if he finds no retinal damage from diabetes. Ask your sequencing machine operator to communicate his findings to us. See a caustic room operator every 6 months if you have numbness in your feet or a history of foot ulcers.Goals:Goal Hemoglobin A1c is less than 7.0%. Goal Blood pressure is less than 130/85.
[2017-12-04 13:39] LABS: Urine Appearance Clear; Urine Blood Negative (Negative); Urine Color Yellow; Urine Ketones Negative (Negative); Urine Protein Negative (Negative); Urine Red Blood Cell Trace(0-2/hpf) (Absent); Urine Specific Gravity 1.009 (1.010-1.030); Urine Urobilinogen Negative (Negative); Urine White Blood Cell 2+(11-20/hpf) (Absent)
[2017-12-04 13:44] LABS: ABS Basophils 0 10^3/ul (0-0.2); ABS Eosinophils 0 10^3/ul (0-0.6); ABS Lymphocytes 5.4 10^3/ul (1.0-4.8); ABS Monocytes 0.5 10^3/ul (0-0.8); ABS Neutrophils 3.9 10^3/ul (1.5-7.7); ABS Nucleated RBC 0 10^3/ul; Nucleated Red Blood Cells % 0.3
[2017-12-04 15:27] VITALS: BP 130/81
== END 2017-12-04 15:26 | disposition home or self-care (01) ==
LOC: ED 10:50
DX: I50.9 Heart failure, unspecified (principal); N39.0 Urinary tract infection, site not specified; E11.9 Type 2 diabetes mellitus without complications; Z79.84 Long term (current) use of oral hypoglycemic drugs; K21.9 Gastro-esophageal reflux disease without esophagitis
CPT/HCPCS: 36415; 71045; 80053; 81003; 81015; 83735; 83880; 84443; 84484; 85025; 85060; 85379; 85610; 85730; 87086; 93005; 96374; 99282; J1940

== ENCOUNTER 2018-06-23 20:39 | Observation (INO) | payer MEDICARE ==
[2018-06-23] MEDS ORDERED: NS 0.9% 1000 ML** 1,000 ML IV.FLUID IV ONE (21:23)
[2018-06-23] MEDS ORDERED: Acetaminophen TAB* 325 MG PO ONE (21:25)
[2018-06-23] MEDS ORDERED: ED Ceftriaxone 2 GM/50 ML 2 GM/2 ML PREMIX.SET IVPB ONE (21:25)
--- NOTE | 2018-06-23 21:39 | ED ---
Shortness of Breath - HPI Summary HPI Summary: An 83 y/o female brought in by [facility] ambulance and accompanied by her daughter presents to [facility] with a chief complaint of SOB since yesterday. At triage the patient rated her pain as a 0/10 in severity. The patient also complains of fever, back pain, nonproductive cough and a headache ECONOMIC ADVISER. The patients daughter also reports that the patient has been confused. She denies any urinary symptoms. She also reports falling in November 2017 but has not fallen recently. She has a Hx of PNA and was prescribed abx by Dr. Chino Peraza. She has a Hx of Atrial fibrillation and takes Lasix and Coumadin. - History of Current Complaint Chief Complaint: EDShortnessOfBreath Time Seen by Provider: 06/23/18 21:16 Hx Obtained From: Patient, Family/Event Sales Manager Onset/Duration: Sudden Onset, Lasting Hours, Still Present Timing: Constant Current Severity: Mild Dyspnea At: Rest Aggrevating Factors: Nothing Alleviating Factors: Nothing Associated Signs & Symptoms: Cough (Nonproductive), Fever - 100.4 at triage - Allergy/Home Medications Allergies/Adverse Reactions: Allergies Allergy/AdvReac Type Severity Reaction Status Date / Time amoxicillin [From Augmentin] Allergy Unknown Verified 12/24/17 13:34 Reaction Details clavulanic acid Allergy Unknown Verified 12/24/17 13:34 [From Augmentin] Reaction Details latex Allergy Rash Verified 12/24/17 13:34 levofloxacin [From Levaquin] Allergy Rash And Verified 12/24/17 13:34 Itching nickel Allergy Itching Verified 12/24/17 13:34 PMH/Surg Hx/FS Hx/Imm Hx Endocrine/Hematology History: Reports: Hx Diabetes Cardiovascular History: Reports: Hx Aneurysm - thoracic, Hx Atrial Fibrillation , Hx Hypertension, Other Cardiovascular Problems/Disorders - atrial fibrillation Denies: Hx Congestive Heart Failure Respiratory History: Reports: Hx Sleep Apnea - Uses Cpap at home, Other Respiratory Problems/Disorders - sleep apnea GI History: Reports: Hx Gastroesophageal Reflux Disease, Hx Hiatal Hernia, Other GI Disorders - Colitis History: Denies: Hx Dialysis, Hx Renal Disease, Other Problems/Disorders Musculoskeletal History: Reports: Hx Arthritis, Hx Back Problems, Other Musculoskeletal History - Left knee replacement Denies: Hx Osteoporosis, Hx Tendonitis Sensory History: Reports: Hx Cataracts - LEFT EYE CURRENTLY, Hx Contacts or Glasses, Hx Hearing Problem Denies: Hx Hearing Aid Opthamlomology History: Reports: Hx Cataracts - LEFT EYE CURRENTLY, Hx Contacts or Glasses Neurological History: Reports: Hx Migraine - IN PAST Denies: Other Neuro Impairments/Disorders Psychiatric History: Denies: Hx Schizophrenia - Cancer History Hx Chemotherapy: No Hx Radiation Therapy: No - Surgical History Surgery Procedure, Year, and Place: HERNIA [id number]/left knee [id number]/ [id number]/[place]/appy. RIGHT EYE 2006 cataract, Left eye cataract 2012 Hx Anesthesia Reactions: Yes - EXTREME VERTIGO Infectious Disease History: No Infectious Disease History: Denies: Hx Clostridium Difficile, Hx Hepatitis, Hx Human Immunodeficiency Virus (HIV), Hx of Known/Suspected MRSA, Hx Shingles, Hx Tuberculosis, Hx Known/ Suspected VRE, Hx Known/Suspected VRSA, History Other Infectious Disease, Traveled Outside the [place] in Last 30 Days - Family History Known Family History: Negative: Other - Breast CA - Social History Alcohol Use: None Hx Substance Use: No Substance Use Type: Reports: None Hx Tobacco Use: No Smoking Status (MU): Never Smoked Tobacco Have You Smoked in the Last Year: No Review of Systems Positive: Fever - 100.4 at triage Positive: Shortness Of Breath, Cough Positive: no symptoms reported Positive: Myalgia - back pain Neurological: Other - positive: confusion Positive: Headache - ECONOMIC ADVISER All Other Systems Reviewed And Are Negative: Yes Physical Exam - Summary Physical Exam Summary: VITAL SIGNS: Reviewed. GENERAL: Patient is a well-developed and nourished FEMALE who is lying comfortable in the stretcher. Patient is not in any acute respiratory distress. HEAD AND FACE: No signs of trauma. No ecchymosis, hematomas or skull depressions. No sinus tenderness. EYES: PERRLA, EOMI x 2, No injected conjunctiva, no nystagmus. EARS: Hearing grossly intact. Ear canals and tympanic membranes are within normal limits. MOUTH: Oropharynx within normal limits. NECK: Supple, trachea is midline, no adenopathy, no JVD, no carotid bruit, no c- spine tenderness, neck with full ROM. CHEST: Symmetric, no tenderness at palpation LUNGS: Clear to auscultation bilaterally. No wheezing or crackles. CVS: Tachycardic, irregular rhythm, S1 and S2 present, no murmurs or gallops appreciated. ABDOMEN: Soft, non-tender. No signs of distention. No rebound no guarding, and no masses palpated. Bowel sounds are normal. EXTREMITIES: FROM in all major joints, no edema, no cyanosis or clubbing. NEURO: Alert and oriented x 3. No acute neurological deficits. Speech is normal and follows commands. SKIN: Dry and warm Triage Information Reviewed: Yes Vital Signs On Initial Exam: Initial Vitals Temp Pulse Resp BP Pulse Ox 100.4 F 136 20 178/149 91 06/23/18 20:45 06/23/18 20:45 06/23/18 20:45 06/23/18 20:45 06/23/18 20:45 Vital Signs Reviewed: Yes - Donell Coma Scale Best Eye Response: 4 - Spontaneous Best Motor Response: 6 - Obeys Commands Best Verbal Response: 5 - Oriented Coma Scale Total: 15 Diagnostics - Vital Signs Vital Signs Temp Pulse Resp BP Pulse Ox 06/23/18 21:00 137 18 91 06/23/18 20:47 168 178/149 94 06/23/18 20:45 100.4 F 107 20 178/149 93 - Laboratory Result Diagrams: 06/24/18 08:39 06/24/18 08:39 Lab Statement: Any lab studies that have been ordered have been reviewed, and results considered in the medical decision making process. - Radiology CXR Radiology Interpretation Completed By: ED Physician Summary of Radiographic Findings: no acute process. Pending official imaging report. - EKG 21:33 Cardiac Rate: Other Rate - Atrial fibrillation at 115 bpm EKG Rhythm: Atrial Fibrillation Summary of EKG Findings: Atrial fibrillation at 115 bpm with nonspecific T-wave changes. Re-Evaluation - Re-Evaluation First Eval Re-Evaluation Time: 22:40 Change: Improved Comment: Patient is feeling better. Second Eval Re-Evaluation Time: 00:00 Change: Unchanged Comment: Discussed results and plan for admission. Course/Dx - Course Course Of Treatment: n 83 y/o female brought in by [facility] ambulance and accompanied by her daughter presents to [facility] with a chief complaint of SOB since yesterday. The patient also complains of fever, back pain, nonproductive cough and a headache ECONOMIC ADVISER. The physical exam revealed that the patient was tachycardic with an irregular rhythm. EKG at 21:33 showed Atrial fibrillation at 115 bpm with nonspecific T-wave changes. Blood work, chemistries and urines obtained. Patient had a lactic acid of 2.2 and troponin of 0.04 at 21:54. She tested positive for Influenza A. In the ED course the patient was given Rocephin and Sodium Chloride IV, Tylenol PO and Tamiflu PO. CXR showed no acute process. Brain CT impression: 1. There is stable age-related diffuse cerebral volume loss and chronic. microvascular ischemic disease. 2. No acute intracranial pathology. Discussed case with Dr. Chavira, hospitalist, who accepted the patient for admission. - Diagnoses Provider Diagnoses: Influenza A - Physician Notifications Discussed Care of Patient With: Richa Chavira Time Discussed With Above Provider: 23:43 Instructed by Provider To: Admit As Inpatient - Critical Care Time Critical Care Time: 30-74 min Discharge - Sign-Out/Discharge Documenting (check all that apply): Patient Departure - admit Patient Received Moderate/Deep Sedation with Procedure: No - Discharge Plan Condition: Fair Disposition: ADMITTED TO [facility] - Billing Disposition and Condition Condition: FAIR Disposition: Admitted to [facility] - Attestation Statements Document Initiated by Scribe: Yes Documenting Scribe: Zafar Chester Provider For Whom Scribe is Documenting (Include Credential): Misbah Ko MD Scribe Attestation: IZafar scribed for Misbah Ko MD on 06/25/18 at 0558. Scribe Documentation Reviewed: Yes Provider Attestation: The documentation as recorded by the Zafar sharp accurately reflects the service I personally performed and the decisions made by me, Misbah Ko MD Status of Scribe Document: Viewed
[2018-06-23] MEDS ORDERED: cefTRIAXone(*) 2 GM in NS 0.9% 100 ML* 100 ML IVPB ONE (22:00)
[2018-06-23 22:01] LABS: ABS Basophils 0 10^3/ul (0-0.2); ABS Eosinophils 0 10^3/ul (0-0.6); ABS Monocytes 0.4 10^3/ul (0-0.8); ABS Neutrophils 7.2 10^3/ul (1.5-7.7); ABS Nucleated RBC 0 10^3/ul; Eosinophil % 0 %; Hematocrit 41 % (33-41); Hemoglobin 14.2 g/dL (12.0-16.0); Lymphocyte % 39.9 %; Mean Corpuscular HGB Conc 34 g/dL (31-36); Mean Corpuscular Hemoglobin 32 pg (27-31); Mean Corpuscular Volume 93 fL (80-97); Mean Platelet Volume 8.8 fL (7.4-10.4); Nucleated Red Blood Cells % 0.1; Platelet Count 173 10^3/uL (150-450); Red Blood Count 4.44 10^6 /uL (3.70-4.87); Red Cell Distribution Width 13 % (10.5-15); White Blood Count 12.6 10^3/uL (3.5-10.8)
[2018-06-23 22:10] LABS: Activated Partial Thrombo Time 38.4 seconds (26.0-36.3); INR 2.54 (0.77-1.02)
[2018-06-23 22:10] LABS: Influenza A Molecular POSITIVE (Negative)
[2018-06-23] MEDS ORDERED: Oseltamivir CAP* 75 MG CAP PO ONE (22:12)
[2018-06-23 22:20] LABS: ALT 18 U/L (7-52); AST 36 U/L (13-39); Albumin/Globulin Ratio 1.2 (1-3); Alkaline Phosphatase 53 U/L (34-104); Anion Gap 11 mmol/L (2-11); BUN/Creatinine Ratio 27.2 (8-20); Blood Urea Nitrogen 28 mg/dL (6-24); C Reactive Protein 81.31 mg/L (<8.01); CO2 Carbon Dioxide 24 mmol/L (22-32); Calcium 9.6 mg/dL (8.6-10.3); Chloride 99 mmol/L (101-111); EGFR African American 61.8 (>60); EGFR Non-African American 51.1 (>60); Globulin 3.4 g/dL (2-4); Glucose 296 mg/dL (70-100); Sodium 134 mmol/L (135-145); Total Protein 7.4 g/dL (6.4-8.9)
[2018-06-23 22:21] LABS: Urine Appearance Cloudy; Urine Bacteria Absent (Absent); Urine Bilirubin Negative (Negative); Urine Blood Negative (Negative); Urine Color Yellow; Urine Glucose 1+(50 mg/dL) (Negative); Urine Ketones Negative (Negative); Urine Nitrite Negative (Negative); Urine Protein 2+(100 mg/dL) (Negative); Urine Red Blood Cell 2+(6-10/hpf) (Absent); Urine Specific Gravity 1.015 (1.010-1.030); Urine Urobilinogen Positive (Negative); Urine White Blood Cell Trace(0-5/hpf) (Absent)
[2018-06-23 22:23] LABS: Troponin I 0.04 ng/mL (<0.04)
[2018-06-24] MEDS ORDERED: Acetaminophen TAB* 325 MG PO PRN (00:58)
--- NOTE | 2018-06-24 03:26 | HP ---
CC: Dr. Celina Howell * HISTORY AND PHYSICAL: DATE OF ADMISSION: 06/23/18 PRIMARY CARE PROVIDER: Dr. Celina Howell. HEALTHCARE PROXY: Daughter, Rowena Edwards. CODE STATUS: Full. CHIEF COMPLAINT: Shortness of breath, cough, fevers, and weakness for 1 day. HISTORY OF PRESENT ILLNESS: Ms. Yu is an 83-year-old woman with a history of diabetes, hypertension, atrial fibrillation on warfarin, obstructive sleep apnea, colitis, and vertigo, who was in her usual state of health until yesterday when she began experiencing nonproductive cough associated with weakness and fatigue. She was with her daughter, who took her temperature and noted it to be 103. She also has experienced diffuse myalgias and headache. Daughter states that the patient has also been acting a little bit more confused since all these symptoms have started. The patient denies chest pain, shortness of breath, abdominal pain, nausea, vomiting, constipation, diarrhea, dysuria or urinary frequency. In the emergency room, the patient was noted to have tachycardia and a lactic acid of 2.2. She tested positive for influenza A. She was administered ceftriaxone, Tamiflu, intravenous fluids, and Tylenol. Given her confusion, she underwent a brain CT, which was unremarkable and her chest x-ray showed no cardiopulmonary pathology. Given weakness and confusion as complications from the flu, she was admitted to Medicine for further observation. PAST MEDICAL HISTORY: 1. Obesity, complicated by DARVIN, on home CPAP. 2. Diabetes. 3. Hypertension. 4. Vertigo. 5. Colitis. 6. AFib, on warfarin. 7. Thoracic aneurysm. 8. Hyperlipidemia. 9. GERD. PAST SURGICAL HISTORY: 1. . 2. Hernia repair. 3. Tonsillectomy. 4. Laparoscopic cholecystectomy. 5. Knee replacement. 6. Cataracts. HOME MEDICATIONS: Verified with patient. 1. Metformin 500 mg twice a day. 2. Oxycodone/acetaminophen 1 tab q.6 hours as needed for arthritis pain. 3. Warfarin 2.5 mg daily. 4. Furosemide 40 mg daily. 5. Potassium 20 mEq daily. 6. Omeprazole 20 mg daily. 7. Cyclobenzaprine 5 mg q.8 hours p.r.n. muscle spasm. 8. Atenolol 50 mg twice a day. 9. Fenofibrate 145 mg daily. 10. Fluticasone nasal spray. 11. Lisinopril 40 mg daily. 12. Meclizine 12.5 mg as needed for dizziness. 13. Multiple vitamins and probiotics. ALLERGIES: AMOXICILLIN, LATEX, LEVOFLOXACIN, and NICKEL. FAMILY HISTORY: Noncontributory. SOCIAL HISTORY: Lives with daughter, Clotilde. 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 Never tobacco, alcohol or other drugs. PHYSICAL EXAMINATION GENERAL: Obese woman, somewhat sleepy, but alerted to voice. Diaphoretic, but otherwise nontoxic appearing. VITAL SIGNS: T-max 100.4, heart rate low 100s, blood pressure 130/92, respiratory rate 22, FiO2 98% on room air. HEENT: Oropharynx clear. +Arcus senilis. NECK: No cervical lymphadenopathy. LUNGS: Clear to auscultation bilaterally. HEART: Tachycardic, regular rhythm. No murmurs, gallops, rubs. ABDOMEN: Soft, nontender, nondistended. EXTREMITIES: Warm, well perfused. No lower extremity edema. DIAGNOSTIC STUDIES/LAB DATA: Labs reviewed and significant for WBC elevated to 12.6. INR 2.54. Sodium low 134. BUN and creatinine 28 and 1.03. Creatinine at baseline. Lactic acid 2.2. Troponin 0.04. C-reactive protein 81. UA significant for urobilinogen 2+ RBC and influenza A rapid is positive. Chest x-ray without acute cardiopulmonary pathology. Brain CT with stable age related diffuse cerebral volume loss and chronic microvascular ischemic disease. ASSESSMENT AND PLAN: An 83-year-old woman with diabetes; hypertension; obesity , complicated by obstructive sleep apnea, on home CPAP; atrial fibrillation, on warfarin, who presents with subacute fevers, altered mental status, fatigue, and cough, found with severe sepsis and positive influenza A. 1. Influenza. Maintain patient on Tamiflu for at least 5 days, may require longer duration if she is not showing significant improvement by that time. Continue to monitor vitals and admit to observation. We will give Tylenol p.r.n. for fevers and myalgias. Repeat lactate after IV fluids have completed. 2. Mild elevation in troponin. This is likely from demand ischemia in the setting of tachycardia from sepsis. We will control fevers and give IV fluids. The patient is without cardiac symptoms and there are no concerning findings on her EKG. We will trend troponin until it decreases. 3. Hypertension. Continue home lisinopril 40 mg daily, also continue home atenolol 50 mg twice a day. 4. Diabetes. We will hold home metformin and start on insulin sliding scale. 5. Atrial fibrillation. We will monitor heart rate and maintain on warfarin for therapeutic anticoagulation. 6. Edema. The patient has no edema on exam, but noted to be on furosemide and potassium as an outpatient. Unknown if patient has history of diagnostic heart failure. Will hold furosemide and therefore also potassium in the setting of sepsis. Will continue to monitor volume status and restart when indicated. 7. For obstructive sleep apnea, will order CPAP nightly. 8. Vertigo. Holding home meclizine in the setting of altered mental status. 9. Osteoarthritis. Continue home Percocet p.r.n., but continue to monitor mental status given recent confusion. 10. Hypertriglyceridemia. Continue home fenofibrate. 11. DVT prophylaxis. Not needed as the patient is on warfarin. 12. The patient is full code. TIME SPENT: Approximately 60 minutes were spent on admission of this patient, more than half of which was spent at bedside for interview and exam. [id number]/[facility] #: [id number] ALEJANDRA
[2018-06-24 08:55] LABS: ABS Basophils 0 10^3/ul (0-0.2); ABS Eosinophils 0 10^3/ul (0-0.6); ABS Lymphocytes 2.6 10^3/ul (1.0-4.8); ABS Monocytes 0.4 10^3/ul (0-0.8); ABS Nucleated RBC 0 10^3/ul; Eosinophil % 0.1 %; Hematocrit 37 % (33-41); Hemoglobin 12.5 g/dL (12.0-16.0); Lymphocyte % 37.2 %; Mean Corpuscular HGB Conc 34 g/dL (31-36); Mean Corpuscular Hemoglobin 32 pg (27-31); Mean Corpuscular Volume 94 fL (80-97); Nucleated Red Blood Cells % 0.1; Platelet Count 139 10^3/uL (150-450); Red Blood Count 3.94 10^6 /uL (3.70-4.87); Red Cell Distribution Width 14 % (10.5-15)
[2018-06-24] MEDS: Insulin LISPRO* 1 UNITS UNIT SUBCUT SCH ×3 (08:58→13:04)
[2018-06-24] MEDS ORDERED: Oseltamivir CAP* 30 MG CAP PO SCH (09:00)
[2018-06-24 09:01] LABS: INR 2.05 (0.77-1.02)
[2018-06-24] MEDS: Atenolol TAB* 50 MG PO SCH ×2 (09:02→20:37)
[2018-06-24] MEDS: Pantoprazole TAB * 40 MG TAB PO SCH (09:02)
[2018-06-24] MEDS: Multivitamins/Minerals TAB PO SCH (09:03)
[2018-06-24] MEDS: Lisinopril TAB* 10 MG PO SCH ×2 (09:03→09:20)
[2018-06-24] MEDS: oxyCODONE/Acetamin 5/325 MG* TAB PO PRN ×2 (09:04→20:49)
[2018-06-24] MEDS: Folic Acid TAB* 1 MG PO SCH (09:05)
[2018-06-24 09:06] LABS: Anion Gap 7 mmol/L (2-11); BUN/Creatinine Ratio 29.9 (8-20); Blood Urea Nitrogen 23 mg/dL (6-24); CO2 Carbon Dioxide 25 mmol/L (22-32); Calcium 8.8 mg/dL (8.6-10.3); Chloride 105 mmol/L (101-111); EGFR African American 86.4 (>60); EGFR Non-African American 71.4 (>60); Glucose 205 mg/dL (70-100); Potassium 3.7 mmol/L (3.5-5.0); Sodium 137 mmol/L (135-145)
[2018-06-24 09:14] LABS: Troponin I 0.04 ng/mL (<0.04)
[2018-06-24] MEDS: Fluticasone NASAL SPRAY 50MCG* 16 gm SPRAY BTL BOTH NARES SCH (09:16)
[2018-06-24] MEDS: CMCS: Fenofibrate(NF) 145 MG TAB PO SCH (09:17)
[2018-06-24] MEDS ORDERED: Cyclobenzaprine TAB* 10 MG PO PRN (15:36)
--- NOTE | 2018-06-24 15:56 | PN ---
Subjective Date of Service: 06/24/18 Interval History: Pt is feeling ok. She states her breathing is improved from yesterday. She walked in the [place]ta[place] and states she did ok with that. She denies any pain. Objective Active Medications: Acetaminophen (Tylenol Tab*) 975 mg PO Q8H PRN PRN Reason: fever or mild pain Atenolol (Tenormin Tab*) 50 mg PO BID [facility] Last Admin: 06/24/18 09:02 Dose: 50 mg Cholecalciferol (Vitamin D Tab*) 400 unit PO DAILY [facility] Cyclobenzaprine HCl (Flexeril Tab*) 5 mg PO Q8HR PRN PRN Reason: SPASMS Fenofibrate (Tricor(Nf)) 145 mg PO DAILY [facility]; Protocol Last Admin: 06/24/18 09:17 Dose: 145 mg Fluticasone Propionate (Flonase Nasal [place] 50mcg*) 2 spray BOTH NARES DAILY [facility] Last Admin: 06/24/18 09:16 Dose: 2 spray Folic Acid (Folvite Tab*) 1 mg PO DAILY [facility] Last Admin: 06/24/18 09:05 Dose: 1 mg Furosemide (Lasix Tab*) 40 mg PO DAILY [facility] Lactobacillus Rhamnosus (Lactobacillus Acidophilus*) 1 tab PO DAILY [facility] Lisinopril (Prinivil Tab*) 40 mg PO 2100 [facility] Meclizine HCl (Antivert Tab*) 12.5 mg PO BID [facility] Metformin HCl (Glucophage*) 500 mg PO BID [facility] Multivitamins/Minerals (Theragran/Minerals Tab*) 1 tab PO DAILY [facility] Last Admin: 06/24/18 09:03 Dose: 1 tab Oseltamivir Phosphate (Tamiflu Cap*) 75 mg PO BID [facility] Stop: 06/28/18 09:01 Oxycodone/Acetaminophen (Percocet 5/325 Tab*) 1 tab PO QID PRN PRN Reason: PAIN Last Admin: 06/24/18 09:04 Dose: 1 tab Pantoprazole Sodium (Protonix Tab*) 40 mg PO DAILY [facility] Last Admin: 06/24/18 09:02 Dose: 40 mg Pharmacy Profile Note (Coumadin Per Pharmacy*) 1 note FOLLOW UP .PER PHARMACY PROTOC [facility]; Protocol Potassium Chloride (Klor Con Er Tab*) 20 meq PO DAILY [facility] Warfarin Sodium (Coumadin Tab(*)) 2.5 mg PO DAILY@1700 [facility]; Protocol Vital Signs - 8 hr 06/24/18 06/24/18 06/24/18 08:00 08:45 09:04 Temperature 98.3 F Pulse Rate 90 Respiratory 20 20 20 Rate Blood Pressure 129/84 (mmHg) O2 Sat by Pulse 100 Oximetry 06/24/18 06/24/18 06/24/18 11:33 14:42 15:00 Temperature 99.1 F 96.9 F Pulse Rate 95 101 Respiratory 22 18 Rate Blood Pressure 114/63 131/68 (mmHg) O2 Sat by Pulse 98 93 93 Oximetry Oxygen Devices in Use Now: Nasal Cannula Appearance: Elderly female sitting up in a chair, NAD Eyes: No Scleral Icterus Ears/Nose/Mouth/Throat: Mucous Membranes Moist Respiratory: Symmetrical Chest Expansion and Respiratory Effort, Clear to Auscultation - few crackles R base Cardiovascular: NL Sounds; No Murmurs; No JVD, RRR, No Edema Abdominal: NL Sounds; No Tenderness; No Distention Extremities: No Clubbing, Cyanosis Skin: No Nodules or Sclerosis Neurological: Alert and Oriented x 3 Result Diagrams: 06/24/18 08:39 06/24/18 08:39 Assess/Plan/Problems-Billing Ms Yu is an 83 yo F who has a h/o DM and HTN who presented to the ER with c/ o SOB, fever and weakness and was found to be positive for influenza. - Patient Problems (1) Influenza Current Visit: Yes Status: Acute Code(s): J11.1 - FLU DUE TO UNIDENTIFIED INFLUENZA VIRUS W OTH RESP MANIFEST SNOMED Code(s): 7066113 Comment: Continue tamiflu-increase from renal dose to 75mg BID. Pt improved but desaturates with ambulation. Monitor symptoms. (2) Elevated troponin Current Visit: Yes Status: Acute Code(s): R79.89 - OTHER SPECIFIED ABNORMAL FINDINGS OF BLOOD CHEMISTRY SNOMED Code(s): 084059769 Comment: Troponin mildly elevated. Likely demand ischemia from influenza. No further testing. (3) Afib Current Visit: Yes Status: Acute Code(s): I48.91 - UNSPECIFIED ATRIAL FIBRILLATION SNOMED Code(s): 43495519 Comment: HR is mildly elevated. Continue atenolol and coumadin. (4) Type II diabetes mellitus Current Visit: Yes Status: Acute Comment: Resume metformin. Pt refuses to use insulin at this time. Monitor sugars. (5) HTN (hypertension) Current Visit: Yes Status: Acute Code(s): I10 - ESSENTIAL (PRIMARY) HYPERTENSION SNOMED Code(s): 40124798 Comment: BP is under good control on her current regimen. Monitor BP. (6) DARVIN (obstructive sleep apnea) Current Visit: Yes Status: Acute Code(s): G47.33 - OBSTRUCTIVE SLEEP APNEA ( ADULT) (PEDIATRIC) SNOMED Code(s): 32051628 Comment: Continue CPAP at night. (7) DVT prophylaxis Current Visit: Yes Status: Acute Code(s): SBK7996 - SNOMED Code(s): 407449520 Comment: coumadin (8) Full code status Current Visit: Yes Status: Acute Code(s): Z78.9 - OTHER SPECIFIED HEALTH STATUS SNOMED Code(s): 519829529
[2018-06-24] MEDS ORDERED: Warfarin TAB(*) 2.5 MG PO SCH (17:00)
[2018-06-24] MEDS: metFORMIN* 500 MG TAB PO SCH (20:35)
[2018-06-24] MEDS: Oseltamivir CAP* 75 MG CAP PO SCH (20:36)
[2018-06-24] MEDS: Meclizine TAB* 12.5 MG PO SCH (20:37)
[2018-06-24] MEDS ORDERED: Lisinopril TAB* 10 MG PO SCH (21:00)
[2018-06-24] MEDS ORDERED: Saline NASAL SPRAY 0.65%* BTL BOTH NARES PRN (22:40)
[2018-06-25] MEDS ORDERED: guaiFENesin/CODIEN 100MG-10MG* 5 ML UDC PO ONE (02:19)
[2018-06-25] MEDS ORDERED: GuaiFENesin DM sugar free* 5 ML UDC PO PRN (02:20)
[2018-06-25] MEDS: Pantoprazole TAB * 40 MG TAB PO SCH (08:17)
[2018-06-25] MEDS: metFORMIN* 500 MG TAB PO SCH (08:17)
[2018-06-25] MEDS: Atenolol TAB* 50 MG PO SCH (08:17)
[2018-06-25] MEDS: Folic Acid TAB* 1 MG PO SCH (08:17)
[2018-06-25] MEDS: Multivitamins/Minerals TAB PO SCH (08:17)
[2018-06-25] MEDS: Meclizine TAB* 12.5 MG PO SCH (08:17)
[2018-06-25] MEDS: Oseltamivir CAP* 75 MG CAP PO SCH (08:18)
[2018-06-25] MEDS: Fluticasone NASAL SPRAY 50MCG* 16 gm SPRAY BTL BOTH NARES SCH (08:22)
[2018-06-25] MEDS: CMCS: Fenofibrate(NF) 145 MG TAB PO SCH (08:35)
[2018-06-25] MEDS ORDERED: Lactobacillus Acidophilus* 1 TAB PO SCH (09:00)
[2018-06-25] MEDS ORDERED: Cholecalciferol TAB* 400 UNIT PO SCH (09:00)
[2018-06-25] MEDS ORDERED: Cetirizine* 10 MG TAB PO SCH (09:00)
[2018-06-25] MEDS ORDERED: Furosemide TAB* 40 MG PO SCH (09:00)
[2018-06-25] MEDS ORDERED: Potassium Chlor TAB* 20 MEQ TAB.ER PO SCH (09:00)
[2018-06-25 09:04] LABS: INR 1.72 (0.77-1.02)
--- NOTE | 2018-06-25 09:55 | PN ---
Subjective Date of Service: 06/25/18 Interval History: Pt is currently feeling well. Last night however she developed a coughing fit and became SOB. She state also last night her ears were painful and she was worried she was getting a sinus infection. She has had some diarrhea this AM that she attributes to her colitis. Objective Active Medications: Acetaminophen (Tylenol Tab*) 975 mg PO Q8H PRN PRN Reason: fever or mild pain Atenolol (Tenormin Tab*) 50 mg PO BID [facility] Last Admin: 06/25/18 08:17 Dose: 50 mg Cetirizine HCl (Zyrtec*) 10 mg PO DAILY [facility] Last Admin: 06/25/18 08:17 Dose: 10 mg Cholecalciferol (Vitamin D Tab*) 400 unit PO DAILY [facility] Last Admin: 06/25/18 08:17 Dose: 400 unit Cyclobenzaprine HCl (Flexeril Tab*) 5 mg PO Q8HR PRN PRN Reason: SPASMS Fenofibrate (Tricor(Nf)) 145 mg PO DAILY [facility]; Protocol Last Admin: 06/25/18 08:35 Dose: 145 mg Fluticasone Propionate (Flonase Nasal [place] 50mcg*) 2 spray BOTH NARES DAILY [facility] Last Admin: 06/25/18 08:22 Dose: 2 spray Folic Acid (Folvite Tab*) 1 mg PO DAILY [facility] Last Admin: 06/25/18 08:17 Dose: 1 mg Furosemide (Lasix Tab*) 40 mg PO DAILY [facility] Last Admin: 06/25/18 08:17 Dose: 40 mg Guaifenesin/Dextromethorphan (Robitussin Dm Sugar Free*) 5 ml PO Q6H PRN PRN Reason: COUGH Lactobacillus Rhamnosus (Lactobacillus Acidophilus*) 1 tab PO DAILY [facility] Last Admin: 06/25/18 08:17 Dose: 1 tab Lisinopril (Prinivil Tab*) 40 mg PO 2100 [facility] Last Admin: 06/24/18 20:39 Dose: 40 mg Meclizine HCl (Antivert Tab*) 12.5 mg PO BID [facility] Last Admin: 06/25/18 08:17 Dose: 12.5 mg Metformin HCl (Glucophage*) 500 mg PO BID [facility] Last Admin: 06/25/18 08:17 Dose: 500 mg Multivitamins/Minerals (Theragran/Minerals Tab*) 1 tab PO DAILY [facility] Last Admin: 06/25/18 08:17 Dose: 1 tab Oseltamivir Phosphate (Tamiflu Cap*) 75 mg PO BID [facility] Stop: 06/28/18 09:01 Last Admin: 06/25/18 08:18 Dose: 75 mg Oxycodone/Acetaminophen (Percocet 5/325 Tab*) 1 tab PO QID PRN PRN Reason: PAIN Last Admin: 06/24/18 20:49 Dose: 1 tab Pantoprazole Sodium (Protonix Tab*) 40 mg PO DAILY [facility] Last Admin: 06/25/18 08:17 Dose: 40 mg Pharmacy Profile Note (Coumadin Per Pharmacy*) 1 note FOLLOW UP .PER PHARMACY PROTOC [facility]; Protocol Potassium Chloride (Klor Con Er Tab*) 20 meq PO DAILY [facility] Last Admin: 06/25/18 08:18 Dose: 20 meq Sodium Chloride (Sodium Chloride 0.65% Nasal [place]*) 1 spray BOTH NARES Q4H PRN PRN Reason: CONGESTION Warfarin Sodium (Coumadin Tab(*)) 2.5 mg PO DAILY@1700 [facility]; Protocol Last Admin: 06/24/18 17:16 Dose: 2.5 mg Vital Signs - 8 hr 06/25/18 06/25/18 03:15 07:30 Temperature 97.4 F 96.8 F Pulse Rate 103 108 Respiratory 20 18 Rate Blood Pressure 153/93 171/96 (mmHg) O2 Sat by Pulse 94 98 Oximetry Oxygen Devices in Use Now: None Appearance: Elderly female sitting up in bed, NAD Eyes: No Scleral Icterus Ears/Nose/Mouth/Throat: Mucous Membranes Moist Respiratory: Symmetrical Chest Expansion and Respiratory Effort, Clear to Auscultation Cardiovascular: NL Sounds; No Murmurs; No JVD, No Edema, - - irregular, tachycardic Abdominal: NL Sounds; No Tenderness; No Distention Extremities: No Clubbing, Cyanosis Skin: No Nodules or Sclerosis Neurological: Alert and Oriented x 3 Result Diagrams: 06/24/18 08:39 06/24/18 08:39 Microbiology and Other Data: Microbiology 06/23/18 21:48 Urine Culture - Final Urine No Growth (<1,000 CFU/mL) 06/23/18 22:47 Aerobic Blood Culture - Preliminary Blood Venous No Growth Day 1 Anaerobic Blood Culture - Preliminary No Growth Day 1 06/23/18 21:53 Aerobic Blood Culture - Preliminary Blood Venous No Growth Day 1 Anaerobic Blood Culture - Preliminary No Growth Day 1 Assess/Plan/Problems-Billing Ms Yu is an 83 yo F who has a h/o DM and HTN who presented to the ER with c/ o SOB, fever and weakness and was found to be positive for influenza. - Patient Problems (1) Influenza Current Visit: Yes Status: Acute Code(s): J11.1 - FLU DUE TO UNIDENTIFIED INFLUENZA VIRUS W OTH RESP MANIFEST SNOMED Code(s): 2734543 Comment: Continue tamiflu to complete 5 day course. Recheck saturations with rest and ambulation on RA. If O2 sat ok and pt feeling ok with ambulation likely d/c home this afternoon. (2) Elevated troponin Current Visit: Yes Status: Acute Code(s): R79.89 - OTHER SPECIFIED ABNORMAL FINDINGS OF BLOOD CHEMISTRY SNOMED Code(s): 290454614 Comment: Troponin mildly elevated. Likely demand ischemia from influenza. No further testing. (3) Afib Current Visit: Yes Status: Acute Code(s): I48.91 - UNSPECIFIED ATRIAL FIBRILLATION SNOMED Code(s): 80918214 Comment: HR elevated this AM. Will not make any changes to her atenolol dose as most of the time her HR is controlled. INR today is subtherapeutic. Will have pt take 5mg today then back to 2.5mg daily. Recheck INR next week if she is d/nazanin home this afternoon. (4) Type II diabetes mellitus Current Visit: Yes Status: Acute Comment: Blood sugars are quite elevated despite being back on her home dose of metformin. She is resistant to me changing her medications (will not even temporarily use insulin). Will check HbA1c. (5) HTN (hypertension) Current Visit: Yes Status: Acute Code(s): I10 - ESSENTIAL (PRIMARY) HYPERTENSION SNOMED Code(s): 55854345 Comment: BP is now moderately elevated. Continue atenolol and lisinopril. Add back lasix today. (6) DARVIN (obstructive sleep apnea) Current Visit: Yes Status: Acute Code(s): G47.33 - OBSTRUCTIVE SLEEP APNEA ( ADULT) (PEDIATRIC) SNOMED Code(s): 06636290 Comment: Continue CPAP at night. (7) DVT prophylaxis Current Visit: Yes Status: Acute Code(s): SAQ5150 - SNOMED Code(s): 257399622 Comment: coumadin (8) Full code status Current Visit: Yes Status: Acute Code(s): Z78.9 - OTHER SPECIFIED HEALTH STATUS SNOMED Code(s): 159664560
[2018-06-25 11:29] VITALS: BP 135/86
[2018-06-25] MEDS ORDERED: Warfarin TAB(*) 5 MG PO SCH (17:00)
--- NOTE | 2018-06-26 00:47 | DS ---
CC: Dr. Howell * DISCHARGE SUMMARY: DATE OF ADMISSION: 06/24/18 DATE OF DISCHARGE: 06/25/18 PRIMARY CARE PROVIDER: Dr. Howell. PRINCIPAL DIAGNOSIS: Influenza. SECONDARY DIAGNOSES: 1. Atrial fibrillation. 2. Type 2 diabetes. 3. Hypertension. 4. Obstructive sleep apnea. 5. Colitis. 6. Hyperlipidemia. 7. Gastroesophageal reflux disease. DISCHARGE MEDICATIONS: 1. Cyclobenzaprine 5 mg p.o. q.8 hours p.r.n. for spasm. 2. Chromium picolinate 200 mcg p.o. daily. 3. Vitamin D 400 units p.o. daily. 4. Calcium plus D 1 tab p.o. daily. 5. Atenolol 50 mg p.o. b.i.d. 6. Fenofibrate 145 mg p.o. daily. 7. Folic acid 1 tablet p.o. daily. 8. Flonase 2 squirts both nostrils daily. 9. Lisinopril 40 mg p.o. daily. 10. Lactobacillus 1 cap p.o. daily. 11. Glucosamine chondroitin 1 cap p.o. b.i.d. 12. Lasix 40 mg p.o. daily. 13. Garlic 1 tab p.o. daily. 14. Meclizine 12.5 mg p.o. b.i.d. 15. Magnesium oxide 250 mg p.o. daily. 16. Loperamide 2 mg p.o. b.i.d. 17. [place]-3 fatty acid 2000 mg p.o. daily. 18. Multivitamin 1 tab p.o. daily. 19. Potassium chloride 20 mEq p.o. daily. 20. Omeprazole 20 mg p.o. daily. 21. Coumadin 5 mg p.o. tonight, then 2.5 mg p.o. daily. 22. Vitamin B complex 1 cap p.o. daily. 23. Percocet 5/325 one tab p.o. 4 times daily p.r.n. for pain. 24. Metformin 500 mg p.o. b.i.d. 25. Tamiflu 75 mg p.o. b.i.d. x6 more doses. 26. Tessalon 100 mg p.o. t.i.d. p.r.n. for cough. HOSPITAL COURSE: Ms. Yu is an 83-year-old female with the above-listed medical conditions who presented to the emergency room on 06/24/18 with complaints of shortness of breath, cough, fever, and weakness. The patient had a fever as high as 103 at home. She also had a nonproductive cough with associated weakness and fatigue. The patient's daughter also noted that the patient had been acting a little more confused since the symptoms began. In the ER, the patient was noted to be tachycardic and have a mildly elevated lactic acid of 2.2. She tested positive for influenza A and was started on Tamiflu. The patient also received ceftriaxone, though this was not continued as no clear pneumonia was identified. The patient was admitted for further management. The patient improved over the next 24 hours. She has been liberated from oxygen. She is slightly tachycardic, though she tells me she is always slightly tachycardic. She will continue on Tamiflu for another 6 doses. Her breathing is stable at this point. The patient did have a mildly elevated troponin on presentation. This is likely secondary to demand ischemia. No further workup was undertaken for this. In terms of the patient's chronic medical conditions, she has been maintained on her usual home medication regimen. In terms of her diabetes specifically, her hemoglobin A1c was obtained this hospitalization and found to be mildly elevated at 7.5%. Her sugars have been fairly elevated in the hospital; however , given her advanced age, hemoglobin A1c of 7.5% may be acceptable. I have not made any adjustments to her usual metformin dose. In terms of the patient's atrial fibrillation, she is on Coumadin usually. Her INR went subtherapeutic on the day of discharge. I did ask the patient to increase her Coumadin level to 5 mg tonight and 2.5 mg on all other days of the week. She is to have an INR next week, which is already arranged per her report. FOLLOWUP CONCERNS: The patient is being discharged home today, 06/25/18. ACTIVITY LEVEL: Is as tolerated. DIET: Heart-healthy, diabetic. CONDITION ON DISCHARGE: Stable. TIME SPENT: Thirty-five minutes were spent discharging this patient. [id number]/[facility] #: [id number] ALEJANDRA
== END 2018-06-25 16:00 | disposition home or self-care (01) ==
LOC: ED 20:39 → MED 06-24 00:58
PROVIDERS: ADMIT Internal Medicine; ATTEND Hospitalist
DX: J11.1 Influenza due to unidentified influenza virus with other respiratory manifestations (principal); I48.91 Unspecified atrial fibrillation; E11.9 Type 2 diabetes mellitus without complications; G47.33 Obstructive sleep apnea (adult) (pediatric); E78.5 Hyperlipidemia, unspecified; K21.9 Gastro-esophageal reflux disease without esophagitis; K52.9 Noninfective gastroenteritis and colitis, unspecified; R05 Cough; R50.9 Fever, unspecified; R06.02 Shortness of breath; I10 Essential (primary) hypertension; R51 Headache; E66.9 Obesity, unspecified; Z79.01 Long term (current) use of anticoagulants; Z96.659 Presence of unspecified artificial knee joint; Z88.0 Allergy status to penicillin; R79.89 Other specified abnormal findings of blood chemistry
CPT/HCPCS: 36415; 70450; 71045; 80048; 80053; 81003; 81015; 83036; 83605; 84484; 85025; 85610; 85730; 86140; 87040; 87086; 93005; 94660; 96361; 96365; 96375; 99285; A9270-GY; G0378; G8978-GP-CJ; G8979-GP-CH; J0696

== ENCOUNTER 2020-11-12 21:29 | Inpatient (IN) ==
[2020-11-13 01:22] LABS: ABS Lymphocytes 4.8 10^3/ul (1.0-4.8); ABS Monocytes 0.7 10^3/ul (0-0.8); ABS Neutrophils 6.3 10^3/ul (1.5-7.7); Eosinophil % 0.3 %; Hematocrit 39 % (35-47); Hemoglobin 13.2 g/dL (12.0-16.0); Lymphocyte % 40.5 %; Mean Corpuscular HGB Conc 34 g/dL (31-36); Mean Corpuscular Hemoglobin 33 pg (27-31); Mean Corpuscular Volume 97 fL (80-97); Mean Platelet Volume 9.3 fL (7.4-10.4); Nucleated Red Blood Cells % 0.1; Platelet Count 190 10^3/uL (150-450); Red Blood Count 3.99 10^6 /uL (3.70-4.87); Red Cell Distribution Width 14 % (10-15)
[2020-11-13 01:55] LABS: ALT 11 U/L (7-52); AST 21 U/L (13-39); Albumin 4.1 g/dL (3.2-5.2); Albumin/Globulin Ratio 1.2 (1-3); Alkaline Phosphatase 48 U/L (35-149); Anion Gap 8 mmol/L (2-11); Blood Urea Nitrogen 30 mg/dL (6-24); CO2 Carbon Dioxide 28 mmol/L (22-32); Calcium 9.7 mg/dL (8.6-10.3); Chloride 99 mmol/L (101-111); EGFR African American 56.4 (>60); EGFR Non-African American 46.6 (>60); Globulin 3.3 g/dL (2-4); Glucose 204 mg/dL (70-100); Potassium 3.6 mmol/L (3.5-5.0); Sodium 135 mmol/L (135-145); Total Protein 7.4 g/dL (6.4-8.9)
[2020-11-13 02:02] LABS: Troponin I 0.03 ng/mL (<0.03)
[2020-11-13] MEDS ORDERED: cefTRIAXone 1 gm/50 mL NS BAG 1 GM/50 ML BAG IV ONE (04:56)
[2020-11-13 04:59] LABS: INR 2.2 (0.86-1.15)
[2020-11-13] MEDS ORDERED: Azithromycin 500 mg/250 ml NS 500 MG/250 ML BAG IVPB ONE (05:21)
[2020-11-13] MEDS ORDERED: Dextrose 50% Syringe 50 ml 25 GM/50 ML SYRINGE IV PUSH PRN (05:24)
[2020-11-13] MEDS ORDERED: Furosemide 20 mg/2 ml IV VIAL IV ONE (05:24)
[2020-11-13 05:27] LABS: C Reactive Protein 135.85 mg/L (<8.01)
[2020-11-13 06:01] LABS: Urine Appearance Cloudy; Urine Bilirubin Negative (Negative); Urine Blood Negative (Negative); Urine Color Yellow; Urine Glucose Negative (Negative); Urine Ketones Negative (Negative); Urine Nitrite Negative (Negative); Urine Protein Negative (Negative); Urine Specific Gravity 1.016 (1.002-1.030); Urine Urobilinogen Positive (Negative)
[2020-11-13 06:09] LABS: Urine Bacteria Absent (Absent); Urine Red Blood Cell Trace(0-2/hpf) (Absent); Urine Squamous Epithelial Cell Present (Absent); Urine White Blood Cell Trace(0-5/hpf) (Absent)
[2020-11-13 06:22] LABS: Troponin I 0.03 ng/mL (<0.03)
[2020-11-13 09:05] LABS: Influenza A Molecular Negative (Negative); Influenza B Molecular Negative (Negative)
[2020-11-13 09:17] LABS: Troponin I 0.03 ng/mL (<0.03)
[2020-11-13] MEDS: Multivitamins/Minerals TAB PO SCH (09:39)
[2020-11-13] MEDS: Potassium Chlor 20 meq TAB.ER PO SCH (09:40)
[2020-11-13] MEDS: CMC:Fenofibrate 145 mg TAB (NF) PO SCH (09:40)
[2020-11-13] MEDS ORDERED: Iodixanol (CONTRAST) 320 MG/ML 100 ML SDV IV ONE (12:59)
[2020-11-14] MEDS: cefTRIAXone 1 gm/50 mL NS BAG 1 GM/50 ML BAG IVPB SCH (04:57)
[2020-11-14 06:15] LABS: INR 2.12 (0.86-1.15)
[2020-11-14 06:17] LABS: Calcium 9.2 mg/dL (8.6-10.3); EGFR African American 78.9 (>60); EGFR Non-African American 65.2 (>60); Potassium 3.7 mmol/L (3.5-5.0)
[2020-11-14 06:29] LABS: ABS Lymphocytes 3.2 10^3/ul (1.0-4.8); ABS Monocytes 0.5 10^3/ul (0-0.8); ABS Neutrophils 3.1 10^3/ul (1.5-7.7); Eosinophil % 0.7 %; Hematocrit 39 % (35-47); Hemoglobin 13.3 g/dL (12.0-16.0); Lymphocyte % 45.9 %; Mean Corpuscular HGB Conc 34 g/dL (31-36); Mean Corpuscular Hemoglobin 33 pg (27-31); Mean Corpuscular Volume 98 fL (80-97); Mean Platelet Volume 9.2 fL (7.4-10.4); Nucleated Red Blood Cells % 0.1; Platelet Count 185 10^3/uL (150-450); Red Cell Distribution Width 14 % (10-15); White Blood Count 6.9 10^3/uL (3.5-10.8)
[2020-11-14] MEDS: Furosemide 20 mg/2 ml IV VIAL IV SLOW PU SCH ×2 (07:43→12:14)
[2020-11-14] MEDS: Potassium Chlor 20 meq TAB.ER PO SCH (07:49)
[2020-11-14] MEDS: Multivitamins/Minerals TAB PO SCH (07:49)
[2020-11-14] MEDS: CMC:Fenofibrate 145 mg TAB (NF) PO SCH (07:54)
[2020-11-14] MEDS ORDERED: Furosemide 40 mg/4 ml IV VIAL IV ONE (11:50)
[2020-11-14] MEDS: Albuterol HFA INHALER 8 gm MDI INH PRN (21:34)
[2020-11-15] MEDS: cefTRIAXone 1 gm/50 mL NS BAG 1 GM/50 ML BAG IVPB SCH (04:25)
[2020-11-15 06:34] LABS: INR 2.07 (0.86-1.15)
[2020-11-15] MEDS: Multivitamins/Minerals TAB PO SCH (08:55)
[2020-11-15] MEDS: Potassium Chlor 20 meq TAB.ER PO SCH (08:56)
[2020-11-15] MEDS: CMC:Fenofibrate 145 mg TAB (NF) PO SCH (08:57)
[2020-11-15] MEDS ORDERED: OXYCODONE ACETAMINOPHEN PO PRN (13:29)
[2020-11-15] MEDS: Albuterol HFA INHALER 8 gm MDI INH PRN (21:57)
[2020-11-16] MEDS ORDERED: diPHENhydraMINE 25 mg TAB PO ONE ×2 (02:57→03:15)
[2020-11-16] MEDS: cefTRIAXone 1 gm/50 mL NS BAG 1 GM/50 ML BAG IVPB SCH (04:45)
[2020-11-16] MEDS ORDERED: Furosemide 20 mg/2 ml IV VIAL IV SLOW PU ONE (06:06)
[2020-11-16] MEDS ORDERED: Furosemide 20 mg/2 ml IV VIAL ONE ×2 (06:08→06:33)
[2020-11-16] MEDS ORDERED: Morphine 2 MG/ML SYRINGE ONE ×2 (06:26→06:33)
[2020-11-16] MEDS ORDERED: Morphine 2 MG/ML SYRINGE IV ONE ×2 (06:44→06:50)
[2020-11-16] MEDS ORDERED: Furosemide 40 mg/4 ml IV VIAL IV SLOW PU ONE (06:44)
[2020-11-16] MEDS ORDERED: Nitro 2% OINT (Nitroglycerin) 1 INCH/PAK ONE ×2 (06:45→06:46)
[2020-11-16] MEDS ORDERED: Nitro 2% OINT (Nitroglycerin) 1 INCH/PAK TOPICAL PRN (06:48)
[2020-11-16] MEDS ORDERED: Ondansetron 4 mg VIAL 2 MG/ML 2 ml VIAL IV PRN (07:06)
[2020-11-16 07:24] LABS: Hematocrit 41 % (35-47); Hemoglobin 13.8 g/dL (12.0-16.0); Mean Corpuscular HGB Conc 34 g/dL (31-36); Mean Corpuscular Hemoglobin 33 pg (27-31); Mean Corpuscular Volume 98 fL (80-97); Mean Platelet Volume 9.1 fL (7.4-10.4); Platelet Count 284 10^3/uL (150-450); Red Blood Count 4.14 10^6 /uL (3.70-4.87); Red Cell Distribution Width 14 % (10-15); White Blood Count 25.1 10^3/uL (3.5-10.8)
[2020-11-16 07:42] LABS: ALT 10 U/L (7-52); AST 24 U/L (13-39); Albumin 3.7 g/dL (3.2-5.2); Albumin/Globulin Ratio 1.1 (1-3); Alkaline Phosphatase 50 U/L (35-149); Anion Gap 11 mmol/L (2-11); Blood Urea Nitrogen 23 mg/dL (6-24); CO2 Carbon Dioxide 23 mmol/L (22-32); Calcium 9.3 mg/dL (8.6-10.3); Chloride 103 mmol/L (101-111); EGFR African American 69.2 (>60); EGFR Non-African American 57.2 (>60); Globulin 3.4 g/dL (2-4); Glucose 379 mg/dL (70-100); Magnesium 1.3 mg/dL (1.9-2.7); Potassium 4.7 mmol/L (3.5-5.0); Sodium 137 mmol/L (135-145); Total Protein 7.1 g/dL (6.4-8.9)
[2020-11-16 07:59] LABS: Troponin I 0.03 ng/mL (<0.03)
[2020-11-16 08:09] LABS: PCO2 Arterial 63 mmHg (35-45); PO2 Arterial 118 mmHg (80-100)
[2020-11-16] MEDS ORDERED: Magnesium Sulf 4 GM/100 ML IV 4,000 MG/100 ML BAG IVPB ONE (08:56)
[2020-11-16 08:59] LABS: ABS Basophils 0.1 10^3/ul (0-0.2); ABS Eosinophils 0.1 10^3/ul (0-0.6); ABS Lymphocytes 17.5 10^3/ul (1.0-4.8); ABS Monocytes 0.8 10^3/ul (0-0.8); ABS Neutrophils 6.6 10^3/ul (1.5-7.7); Eosinophil % 0.5 %; Lymphocyte % 69.6 %; Nucleated Red Blood Cells % 0.1
[2020-11-16] MEDS: DOXYcycline 100 MG in NS 0.9% 250 ml 250 ML IVPB SCH ×2 (09:29→20:40)
[2020-11-16 09:46] LABS: Urine Appearance Clear; Urine Bilirubin Negative (Negative); Urine Blood Negative (Negative); Urine Color Yellow; Urine Glucose 1+(50 mg/dL) (Negative); Urine Ketones Negative (Negative); Urine Nitrite Negative (Negative); Urine Protein 2+(100 mg/dL) (Negative); Urine Specific Gravity 1.012 (1.002-1.030); Urine Urobilinogen Negative (Negative)
[2020-11-16 09:54] LABS: Urine Bacteria Absent (Absent); Urine Red Blood Cell 2+(6-10/hpf) (Absent); Urine Squamous Epithelial Cell Present (Absent); Urine White Blood Cell Trace(0-5/hpf) (Absent)
[2020-11-16] MEDS: Potassium Chlor 20 meq TAB.ER PO SCH (10:46)
[2020-11-16] MEDS: Multivitamins/Minerals TAB PO SCH (10:46)
[2020-11-16] MEDS: CMC:Fenofibrate 145 mg TAB (NF) PO SCH (10:46)
[2020-11-16 11:03] LABS: PCO2 Arterial 51 mmHg (35-45); PO2 Arterial 73 mmHg (80-100)
[2020-11-16] MEDS: Nitro Patch/OINT Remove PATCH TOPICAL SCH ×2 (13:07→18:39)
[2020-11-16 13:29] LABS: INR 2.76 (0.86-1.15)
[2020-11-16 14:05] LABS: Troponin I 0.05 ng/mL (<0.03)
[2020-11-17 04:48] LABS: Hematocrit 38 % (35-47); Hemoglobin 13.1 g/dL (12.0-16.0); Mean Corpuscular HGB Conc 35 g/dL (31-36); Mean Corpuscular Hemoglobin 33 pg (27-31); Mean Corpuscular Volume 96 fL (80-97); Mean Platelet Volume 8.8 fL (7.4-10.4); Platelet Count 202 10^3/uL (150-450); Red Blood Count 3.96 10^6 /uL (3.70-4.87); Red Cell Distribution Width 13 % (10-15)
[2020-11-17] MEDS: cefTRIAXone 1 gm/50 mL NS BAG 1 GM/50 ML BAG IVPB SCH (04:53)
[2020-11-17 05:00] LABS: Calcium 9.1 mg/dL (8.6-10.3); EGFR African American 68.3 (>60); EGFR Non-African American 56.5 (>60); Magnesium 1.8 mg/dL (1.9-2.7); Phosphorus 3.5 mg/dL (2.5-5.0); Potassium 3.8 mmol/L (3.5-5.0)
[2020-11-17] MEDS ORDERED: Potassium Chlor 20 meq TAB.ER PO ONE (06:09)
[2020-11-17] MEDS ORDERED: Magnesium Sulfate 2 gm BAG 2 GM/50 ML BAG IVPB ONE (06:09)
[2020-11-17] MEDS ORDERED: Furosemide 40 mg/4 ml IV VIAL IV ONE (07:18)
[2020-11-17] MEDS ORDERED: Furosemide 40 mg/4 ml IV VIAL ONE (07:20)
[2020-11-17] MEDS: Multivitamins/Minerals TAB PO SCH (07:29)
[2020-11-17] MEDS: CMC:Fenofibrate 145 mg TAB (NF) PO SCH (07:29)
[2020-11-17] MEDS: Potassium Chlor 20 meq TAB.ER PO SCH (07:29)
[2020-11-17] MEDS: DOXYcycline 100 MG in NS 0.9% 250 ml 250 ML IVPB SCH (07:42)
[2020-11-17 08:15] LABS: INR 3.35 (0.86-1.15)
[2020-11-17] MEDS ORDERED: Warfarin per PHARMACY **NOTE FOLLOW UP SCH (10:00)
[2020-11-17] MEDS: Nitro Patch/OINT Remove PATCH TOPICAL SCH ×2 (10:52→18:55)
[2020-11-17 11:00] LABS: Troponin I 0.03 ng/mL (<0.03)
[2020-11-17] MEDS: Warfarin DAILY REMINDER **NOTE FOLLOW UP SCH (17:17)
[2020-11-18 06:39] LABS: ABS Lymphocytes 4.2 10^3/ul (1.0-4.8); ABS Monocytes 0.6 10^3/ul (0-0.8); ABS Neutrophils 6.9 10^3/ul (1.5-7.7); Eosinophil % 0.3 %; Hematocrit 37 % (35-47); Hemoglobin 12.7 g/dL (12.0-16.0); Lymphocyte % 35.3 %; Mean Corpuscular HGB Conc 34 g/dL (31-36); Mean Corpuscular Hemoglobin 33 pg (27-31); Mean Corpuscular Volume 95 fL (80-97); Mean Platelet Volume 8.5 fL (7.4-10.4); Nucleated Red Blood Cells % 0.1; Platelet Count 217 10^3/uL (150-450); Red Blood Count 3.89 10^6 /uL (3.70-4.87); Red Cell Distribution Width 13 % (10-15); White Blood Count 11.8 10^3/uL (3.5-10.8)
[2020-11-18 06:44] LABS: INR 3.27 (0.86-1.15)
[2020-11-18 06:56] LABS: EGFR African American 71.8 (>60); EGFR Non-African American 59.4 (>60); Magnesium 1.7 mg/dL (1.9-2.7); Potassium 3.7 mmol/L (3.5-5.0)
[2020-11-18 06:59] LABS: Troponin I 0.02 ng/mL (<0.03)
[2020-11-18] MEDS ORDERED: Magnesium Sulfate 2 gm BAG 2 GM/50 ML BAG IVPB ONE (09:15)
[2020-11-18] MEDS: Multivitamins/Minerals TAB PO SCH (10:34)
[2020-11-18] MEDS: Potassium Chlor 20 meq TAB.ER PO SCH (10:35)
[2020-11-18] MEDS: CMC:Fenofibrate 145 mg TAB (NF) PO SCH (10:59)
[2020-11-18] MEDS: Nitro Patch/OINT Remove PATCH TOPICAL SCH ×2 (12:35→18:38)
[2020-11-18] MEDS ORDERED: Furosemide 40 mg/4 ml IV VIAL IV SLOW PU ONE (14:28)
[2020-11-18] MEDS ORDERED: Warfarin - No Order Today **NOTE FOLLOW UP ONE (17:00)
[2020-11-18] MEDS: Warfarin DAILY REMINDER **NOTE FOLLOW UP SCH (18:38)
[2020-11-19 05:43] LABS: ABS Eosinophils 0.1 10^3/ul (0-0.6); ABS Lymphocytes 4.6 10^3/ul (1.0-4.8); ABS Monocytes 0.9 10^3/ul (0-0.8); ABS Neutrophils 7.5 10^3/ul (1.5-7.7); Eosinophil % 0.5 %; Hematocrit 37 % (35-47); Hemoglobin 12.5 g/dL (12.0-16.0); Lymphocyte % 34.8 %; Mean Corpuscular HGB Conc 34 g/dL (31-36); Mean Corpuscular Hemoglobin 33 pg (27-31); Mean Corpuscular Volume 95 fL (80-97); Mean Platelet Volume 8.9 fL (7.4-10.4); Nucleated Red Blood Cells % 0.1; Platelet Count 243 10^3/uL (150-450); Red Blood Count 3.83 10^6 /uL (3.70-4.87); Red Cell Distribution Width 13 % (10-15); White Blood Count 13.1 10^3/uL (3.5-10.8)
[2020-11-19 06:04] LABS: Calcium 9.2 mg/dL (8.6-10.3); EGFR African American 77.8 (>60); EGFR Non-African American 64.3 (>60); Magnesium 1.7 mg/dL (1.9-2.7); Potassium 3.8 mmol/L (3.5-5.0)
[2020-11-19] MEDS: Multivitamins/Minerals TAB PO SCH (08:19)
[2020-11-19] MEDS: Potassium Chlor 20 meq TAB.ER PO SCH (08:20)
[2020-11-19] MEDS ORDERED: Magnesium Sulfate 2 gm BAG 2 GM/50 ML BAG IVPB ONE (08:52)
[2020-11-19] MEDS: CMC:Fenofibrate 145 mg TAB (NF) PO SCH (09:39)
[2020-11-19] MEDS: Nitro Patch/OINT Remove PATCH TOPICAL SCH ×2 (12:23→17:51)
[2020-11-19] MEDS ORDERED: Furosemide 20 mg/2 ml IV VIAL IV SLOW PU ONE (15:26)
[2020-11-19] MEDS ORDERED: Furosemide 40 mg/4 ml IV VIAL IV SLOW PU ONE (16:00)
[2020-11-19] MEDS: Warfarin DAILY REMINDER **NOTE FOLLOW UP SCH (17:51)
[2020-11-20 06:25] LABS: Hematocrit 38 % (35-47); Hemoglobin 13.2 g/dL (12.0-16.0); Mean Corpuscular HGB Conc 35 g/dL (31-36); Mean Corpuscular Hemoglobin 33 pg (27-31); Mean Corpuscular Volume 95 fL (80-97); Mean Platelet Volume 8.7 fL (7.4-10.4); Platelet Count 305 10^3/uL (150-450); Red Blood Count 4.02 10^6 /uL (3.70-4.87); Red Cell Distribution Width 13 % (10-15); White Blood Count 14.4 10^3/uL (3.5-10.8)
[2020-11-20 06:26] LABS: ABS Eosinophils 0.1 10^3/ul (0-0.6); ABS Lymphocytes 6.8 10^3/ul (1.0-4.8); ABS Monocytes 0.8 10^3/ul (0-0.8); ABS Neutrophils 6.7 10^3/ul (1.5-7.7); Eosinophil % 0.6 %; Lymphocyte % 46.8 %
[2020-11-20 06:34] LABS: INR 2.25 (0.86-1.15)
[2020-11-20 06:51] LABS: C Reactive Protein 207.27 mg/L (<8.01); Calcium 9.6 mg/dL (8.6-10.3); EGFR African American 63.6 (>60); EGFR Non-African American 52.6 (>60); Magnesium 1.6 mg/dL (1.9-2.7)
[2020-11-20] MEDS ORDERED: Magnesium Sulfate IV 3 GM in NS 0.9% 100 ml BAG 100 ML IVPB ONE (09:00)
[2020-11-20] MEDS ORDERED: Regadenoson 0.4 MG/5 ML SYRINGE ONE (11:47)
[2020-11-20] MEDS: CMC:Fenofibrate 145 mg TAB (NF) PO SCH (15:56)
[2020-11-20] MEDS: Potassium Chlor 20 meq TAB.ER PO SCH (15:57)
[2020-11-20] MEDS: Multivitamins/Minerals TAB PO SCH (15:57)
[2020-11-20] MEDS: Nitro Patch/OINT Remove PATCH TOPICAL SCH ×2 (15:59→16:37)
[2020-11-20] MEDS: Warfarin DAILY REMINDER **NOTE FOLLOW UP SCH (16:37)
[2020-11-21 07:13] LABS: Hematocrit 36 % (35-47); Hemoglobin 12.6 g/dL (12.0-16.0); Mean Corpuscular HGB Conc 35 g/dL (31-36); Mean Corpuscular Hemoglobin 33 pg (27-31); Mean Corpuscular Volume 95 fL (80-97); Mean Platelet Volume 8.5 fL (7.4-10.4); Platelet Count 292 10^3/uL (150-450); Red Blood Count 3.81 10^6 /uL (3.70-4.87); Red Cell Distribution Width 13 % (10-15); White Blood Count 10.1 10^3/uL (3.5-10.8)
[2020-11-21 07:21] LABS: INR 2.38 (0.86-1.15)
[2020-11-21 07:23] LABS: ABS Eosinophils 0.1 10^3/ul (0-0.6); ABS Lymphocytes 5.2 10^3/ul (1.0-4.8); ABS Monocytes 0.6 10^3/ul (0-0.8); ABS Neutrophils 4.1 10^3/ul (1.5-7.7); Lymphocyte % 51.7 %; Nucleated Red Blood Cells % 0.2
[2020-11-21 07:29] LABS: Calcium 9.4 mg/dL (8.6-10.3); EGFR African American 74.7 (>60); EGFR Non-African American 61.7 (>60)
[2020-11-21 09:14] LABS: C Reactive Protein 123.22 mg/L (<8.01)
[2020-11-21] MEDS: Multivitamins/Minerals TAB PO SCH (09:16)
[2020-11-21] MEDS: Potassium Chlor 20 meq TAB.ER PO SCH (09:17)
[2020-11-21] MEDS: CMC:Fenofibrate 145 mg TAB (NF) PO SCH (09:22)
[2020-11-21 12:07] LABS: Magnesium 1.8 mg/dL (1.9-2.7)
[2020-11-21 12:08] VITALS: BP 103/59
== END 2020-11-21 13:40 | disposition home or self-care (01) | DRG 193 ==
LOC: ED 21:29 → MED 21:29 → SUATTDRO 11-13 06:29 → MED 11-13 07:02 → MEDTELE 11-14 04:41 → ICU 11-16 07:12 → MEDTELE 11-17 13:50
PROVIDERS: ADMIT Internal Medicine; ATTEND Internal Medicine

== ENCOUNTER 2021-02-12 08:39 | Observation (INO) ==
[2021-02-12 10:51] LABS: ABS Lymphocytes 4.6 10^3/ul (1.0-4.8); ABS Monocytes 0.4 10^3/ul (0-0.8); ABS Neutrophils 4.3 10^3/ul (1.5-7.7); Eosinophil % 0.3 %; Hematocrit 38 % (35-47); Hemoglobin 12.9 g/dL (12.0-16.0); Lymphocyte % 48.8 %; Mean Corpuscular HGB Conc 34 g/dL (31-36); Mean Corpuscular Hemoglobin 32 pg (27-31); Mean Corpuscular Volume 95 fL (80-97); Nucleated Red Blood Cells % 0.1; Platelet Count 200 10^3/uL (150-450); Red Blood Count 4.04 10^6 /uL (3.70-4.87); Red Cell Distribution Width 14 % (10-15); White Blood Count 9.3 10^3/uL (3.5-10.8)
[2021-02-12 10:54] LABS: Urine Appearance Cloudy; Urine Bilirubin Negative (Negative); Urine Blood Negative (Negative); Urine Color Yellow; Urine Glucose Negative (Negative); Urine Ketones Negative (Negative); Urine Nitrite Negative (Negative); Urine Protein Negative (Negative); Urine Specific Gravity 1.013 (1.002-1.030); Urine Urobilinogen Negative (Negative)
[2021-02-12 10:57] LABS: Urine Bacteria 1+ (Absent); Urine Red Blood Cell Trace(0-2/hpf) (Absent); Urine White Blood Cell 2+(11-20/hpf) (Absent)
[2021-02-12 11:10] LABS: INR 3.37 (0.86-1.15)
[2021-02-12 11:23] LABS: Albumin 3.7 g/dL (3.2-5.2); Albumin/Globulin Ratio 1.2 (1-3); Calcium 9.6 mg/dL (8.6-10.3); Globulin 3.2 g/dL (2-4); Total Bilirubin 0.7 mg/dL (0.2-1.0); Total Protein 6.9 g/dL (6.4-8.9); eGFR CKD-EPI 56.9 (>60)
[2021-02-12] MEDS ORDERED: Polyethylene Glycol 3350 17 GM PACKET PO PRN (15:28)
[2021-02-12] MEDS ORDERED: Magnesium Hydroxide LIQ 30 ML UDC PO PRN (15:28)
[2021-02-12] MEDS ORDERED: Dextrose 50% Syringe 50 ml 25 GM/50 ML SYRINGE IV PUSH PRN (15:28)
[2021-02-12] MEDS ORDERED: Senna TAB 8.6 mg TAB PO PRN (15:28)
[2021-02-12 15:56] LABS: Rapid COVID-19 Molecular Undetected (Undetected)
[2021-02-12] MEDS ORDERED: Warfarin per PHARMACY **NOTE FOLLOW UP SCH (16:00)
[2021-02-12] MEDS ORDERED: Warfarin - No Order Today **NOTE FOLLOW UP ONE (17:00)
[2021-02-12] MEDS ORDERED: Al Hydrox/Mg Hydrox/Simet LIQ 30 ML UDC PO PRN (17:03)
[2021-02-12] MEDS: oxyCODONE/Acetamin 5/325 mg TAB PO PRN (17:05)
[2021-02-12] MEDS: Magnesium Hydroxide LIQ 30 ML UDC PO SCH (21:15)
[2021-02-13] MEDS: oxyCODONE/Acetamin 5/325 mg TAB PO PRN ×4 (00:12→20:36)
[2021-02-13 06:21] LABS: INR 2.96 (0.86-1.15)
[2021-02-13] MEDS: Potassium Chlor 20 meq TAB.ER PO SCH (10:51)
[2021-02-13] MEDS: Cholecalciferol (VIT D3) 400 units TAB PO SCH (10:52)
[2021-02-13] MEDS: CMCS: Fenofibrate 145 mg TAB (NF) PO SCH (10:53)
[2021-02-13] MEDS: Fluticasone NASAL SPRAY 50MCG 16 gm SPRAY BTL INTRANASAL SCH (11:00)
[2021-02-13] MEDS: Magnesium Hydroxide LIQ 30 ML UDC PO SCH ×3 (12:04→20:39)
[2021-02-14 06:11] LABS: INR 2.34 (0.86-1.15)
[2021-02-14] MEDS: Cholecalciferol (VIT D3) 400 units TAB PO SCH (09:39)
[2021-02-14] MEDS: CMCS: Fenofibrate 145 mg TAB (NF) PO SCH (09:39)
[2021-02-14] MEDS: Potassium Chlor 20 meq TAB.ER PO SCH (09:41)
[2021-02-14] MEDS: Fluticasone NASAL SPRAY 50MCG 16 gm SPRAY BTL INTRANASAL SCH (09:52)
[2021-02-14] MEDS: Magnesium Hydroxide LIQ 30 ML UDC PO SCH (11:14)
[2021-02-14] MEDS: Lidocaine PATCH 5% PATCH TRANSDERM SCH (12:14)
[2021-02-14] MEDS: cefTRIAXone 1 gm/50 mL NS BAG 1 GM/50 ML BAG IVPB SCH (14:11)
[2021-02-14] MEDS: oxyCODONE/Acetamin 5/325 mg TAB PO PRN ×2 (16:06→20:33)
[2021-02-14] MEDS: Warfarin DAILY REMINDER **NOTE FOLLOW UP SCH (18:16)
[2021-02-14] MEDS: Lidocaine Patch REMOVE NOTE PATCH OFF SCH (20:42)
[2021-02-15] MEDS: oxyCODONE/Acetamin 5/325 mg TAB PO PRN ×2 (05:30→09:45)
[2021-02-15 06:25] LABS: INR 1.95 (0.86-1.15)
[2021-02-15] MEDS: Potassium Chlor 20 meq TAB.ER PO SCH (09:35)
[2021-02-15] MEDS: CMCS: Fenofibrate 145 mg TAB (NF) PO SCH (09:36)
[2021-02-15] MEDS: Cholecalciferol (VIT D3) 400 units TAB PO SCH (09:36)
[2021-02-15] MEDS: Lidocaine PATCH 5% PATCH TRANSDERM SCH (09:37)
[2021-02-15] MEDS: Fluticasone NASAL SPRAY 50MCG 16 gm SPRAY BTL INTRANASAL SCH (09:41)
[2021-02-15] MEDS: cefTRIAXone 1 gm/50 mL NS BAG 1 GM/50 ML BAG IVPB SCH (12:40)
[2021-02-15] MEDS: Warfarin DAILY REMINDER **NOTE FOLLOW UP SCH (18:08)
[2021-02-15] MEDS: Lidocaine Patch REMOVE NOTE PATCH OFF SCH (22:07)
[2021-02-16] MEDS: CMCS: Fenofibrate 145 mg TAB (NF) PO SCH (08:37)
[2021-02-16] MEDS: Fluticasone NASAL SPRAY 50MCG 16 gm SPRAY BTL INTRANASAL SCH (08:38)
[2021-02-16] MEDS: Cholecalciferol (VIT D3) 400 units TAB PO SCH (08:38)
[2021-02-16] MEDS: Potassium Chlor 20 meq TAB.ER PO SCH (08:38)
[2021-02-16] MEDS: Lidocaine PATCH 5% PATCH TRANSDERM SCH (08:39)
[2021-02-16 10:13] LABS: Hematocrit 38 % (35-47); Hemoglobin 12.9 g/dL (12.0-16.0); Mean Corpuscular HGB Conc 34 g/dL (31-36); Mean Corpuscular Hemoglobin 32 pg (27-31); Mean Corpuscular Volume 95 fL (80-97); Mean Platelet Volume 9.3 fL (7.4-10.4); Platelet Count 231 10^3/uL (150-450); Red Blood Count 3.99 10^6 /uL (3.70-4.87); Red Cell Distribution Width 13 % (10-15)
[2021-02-16 10:20] LABS: INR 2.15 (0.86-1.15)
[2021-02-16 10:28] LABS: C Reactive Protein 53.91 mg/L (<8.01); Potassium 3.9 mmol/L (3.5-5.0); eGFR CKD-EPI 69.6 (>60)
[2021-02-16] MEDS: cefTRIAXone 1 gm/50 mL NS BAG 1 GM/50 ML BAG IVPB SCH (12:32)
[2021-02-16] MEDS: Warfarin DAILY REMINDER **NOTE FOLLOW UP SCH (19:59)
[2021-02-16] MEDS: Lidocaine Patch REMOVE NOTE PATCH OFF SCH (21:24)
[2021-02-17 05:45] LABS: INR 2.23 (0.86-1.15)
[2021-02-17] MEDS: Potassium Chlor 20 meq TAB.ER PO SCH (09:11)
[2021-02-17] MEDS: Cholecalciferol (VIT D3) 400 units TAB PO SCH (09:11)
[2021-02-17] MEDS: Lidocaine PATCH 5% PATCH TRANSDERM SCH (09:12)
[2021-02-17] MEDS: CMCS: Fenofibrate 145 mg TAB (NF) PO SCH (09:22)
[2021-02-17] MEDS: Fluticasone NASAL SPRAY 50MCG 16 gm SPRAY BTL INTRANASAL SCH (09:22)
[2021-02-17] MEDS: cefTRIAXone 1 gm/50 mL NS BAG 1 GM/50 ML BAG IVPB SCH (12:33)
[2021-02-17] MEDS: Warfarin DAILY REMINDER **NOTE FOLLOW UP SCH (17:26)
[2021-02-17] MEDS: Lidocaine Patch REMOVE NOTE PATCH OFF SCH (20:44)
[2021-02-18 06:32] LABS: INR 2.26 (0.86-1.15)
[2021-02-18] MEDS: Cholecalciferol (VIT D3) 400 units TAB PO SCH (08:52)
[2021-02-18] MEDS: Potassium Chlor 20 meq TAB.ER PO SCH (08:53)
[2021-02-18] MEDS: Lidocaine PATCH 5% PATCH TRANSDERM SCH (08:56)
[2021-02-18] MEDS: CMCS: Fenofibrate 145 mg TAB (NF) PO SCH (09:09)
[2021-02-18] MEDS: Fluticasone NASAL SPRAY 50MCG 16 gm SPRAY BTL INTRANASAL SCH (10:13)
[2021-02-18] MEDS: cefTRIAXone 1 gm/50 mL NS BAG 1 GM/50 ML BAG IVPB SCH (11:57)
[2021-02-18 12:26] LABS: Rapid COVID-19 Molecular Undetected (Undetected)
[2021-02-18] MEDS: Warfarin DAILY REMINDER **NOTE FOLLOW UP SCH (17:35)
[2021-02-18] MEDS: Lidocaine Patch REMOVE NOTE PATCH OFF SCH (20:15)
[2021-02-19 05:24] LABS: INR 2.38 (0.86-1.15)
[2021-02-19] MEDS: Fluticasone NASAL SPRAY 50MCG 16 gm SPRAY BTL INTRANASAL SCH (07:57)
[2021-02-19] MEDS: CMCS: Fenofibrate 145 mg TAB (NF) PO SCH (08:01)
[2021-02-19] MEDS: Potassium Chlor 20 meq TAB.ER PO SCH (08:02)
[2021-02-19] MEDS: Cholecalciferol (VIT D3) 400 units TAB PO SCH (08:03)
[2021-02-19] MEDS: Lidocaine PATCH 5% PATCH TRANSDERM SCH (08:09)
[2021-02-19] MEDS: cefTRIAXone 1 gm/50 mL NS BAG 1 GM/50 ML BAG IVPB SCH (13:39)
[2021-02-19] MEDS: Warfarin DAILY REMINDER **NOTE FOLLOW UP SCH (18:37)
[2021-02-19] MEDS: Lidocaine Patch REMOVE NOTE PATCH OFF SCH (20:02)
[2021-02-20 06:21] LABS: INR 2.45 (0.86-1.15)
[2021-02-20 07:46] VITALS: BP 133/65
[2021-02-20] MEDS: Potassium Chlor 20 meq TAB.ER PO SCH (09:39)
[2021-02-20] MEDS: Cholecalciferol (VIT D3) 400 units TAB PO SCH (09:42)
[2021-02-20] MEDS: Lidocaine PATCH 5% PATCH TRANSDERM SCH (09:45)
[2021-02-20] MEDS: CMCS: Fenofibrate 145 mg TAB (NF) PO SCH (10:56)
[2021-02-20] MEDS: Fluticasone NASAL SPRAY 50MCG 16 gm SPRAY BTL INTRANASAL SCH (10:57)
== END 2021-02-20 11:20 ==
LOC: ED 08:39 → EDHOLD 08:39 → SUATTDRO 17:17 → MED 21:23 → MEDTELE 02-16 20:50
PROVIDERS: ADMIT Internal Medicine; ATTEND Internal Medicine

== ENCOUNTER 2021-03-15 06:25 | Inpatient (IN) ==
[2021-03-15] MEDS ORDERED: Albuterol HFA INHALER 8 gm MDI INH ONE (06:31)
[2021-03-15] MEDS ORDERED: Dexamethasone IV 4 MG/ML VIAL 1 ml VIAL IV SLOW PU ONE (06:31)
[2021-03-15] MEDS ORDERED: Lactated Ringers 1000 ml BAG 1,000 ML IV ONE (06:33)
[2021-03-15] MEDS ORDERED: Magnesium Sulfate IV 1GM/100ML 1 GM/100 ML BAG IV ONE (06:34)
[2021-03-15 07:27] LABS: Hematocrit 43 % (35-47); Hemoglobin 14.6 g/dL (12.0-16.0); Mean Corpuscular HGB Conc 34 g/dL (31-36); Mean Corpuscular Hemoglobin 32 pg (27-31); Mean Corpuscular Volume 93 fL (80-97); Mean Platelet Volume 9.8 fL (7.4-10.4); Platelet Count 225 10^3/uL (150-450); Red Cell Distribution Width 14 % (10-15); White Blood Count 26.5 10^3/uL (3.5-10.8)
[2021-03-15 08:05] LABS: Troponin I 0.35 ng/mL (<0.03)
[2021-03-15 08:11] LABS: Albumin 3.6 g/dL (3.2-5.2); CO2 Carbon Dioxide 22 mmol/L (22-32); Calcium 9.2 mg/dL (8.6-10.3); Chloride 100 mmol/L (101-111); Sodium 134 mmol/L (135-145)
[2021-03-15 08:17] LABS: ALT 46 U/L (7-52); Alkaline Phosphatase 138 U/L (35-149); Blood Urea Nitrogen 59 mg/dL (6-24); C Reactive Protein 125.51 mg/L (<8.01); Globulin 3.5 g/dL (2-4); Glucose 364 mg/dL (70-100); Total Protein 7.1 g/dL (6.4-8.9)
[2021-03-15 08:26] LABS: ABS Lymphocytes 15.7 10^3/ul (1.0-4.8); ABS Monocytes 0.5 10^3/ul (0-0.8); ABS Neutrophils 10.3 10^3/ul (1.5-7.7); ABS Nucleated RBC 0.1 10^3/ul; Lymphocyte % 59.3 %; Nucleated Red Blood Cells % 0.3
[2021-03-15] MEDS ORDERED: Iodixanol (CONTRAST) 320 MG/ML 100 ML SDV IV ONE (08:26)
[2021-03-15 08:27] LABS: Anion Gap 12 mmol/L (2-11)
[2021-03-15] MEDS: Vancomycin 1,250 MG in NS 0.9% 250 ml 250 ML IVPB SCH ×3 (08:31→09:49)
[2021-03-15 08:51] LABS: INR 3.99 (0.86-1.15)
[2021-03-15 08:52] LABS: Activated Partial Thrombo Time 35.1 seconds (26.0-38.0)
[2021-03-15] MEDS ORDERED: Furosemide 40 mg/4 ml IV VIAL IV SLOW PU ONE (10:25)
[2021-03-15] MEDS ORDERED: Metoprolol Tartrate 5 mg VIAL 5 ml VIAL (1 mg/ml) IV ONE (10:37)
[2021-03-15] MEDS ORDERED: Warfarin per PHARMACY **NOTE FOLLOW UP SCH (11:00)
[2021-03-15] MEDS ORDERED: Enoxaparin 40 MG/0.4 ML SYR SUBCUT SCH (11:00)
[2021-03-15] MEDS ORDERED: PIPERACILLIN IV ONE (11:00)
[2021-03-15] MEDS ORDERED: TAZOBACTAM IV ONE (11:00)
[2021-03-15] MEDS ORDERED: Dextrose 50% Syringe 50 ml 25 GM/50 ML SYRINGE IV PUSH PRN (12:01)
[2021-03-15 12:20] LABS: Troponin I 0.49 ng/mL (<0.03)
[2021-03-15] MEDS ORDERED: Zosyn per Pharmacy NOTE FOLLOW UP PRN (15:01)
[2021-03-15] MEDS ORDERED: Vancomycin 1,250 MG in NS 0.9% 250 ml 250 ML IVPB ONE (16:00)
[2021-03-15] MEDS: ZOSYN 3.375 GM Q8H per EXTENDED INFUSION IV SCH (16:20)
[2021-03-15] MEDS ORDERED: Warfarin - No Order Today **NOTE FOLLOW UP ONE (17:00)
[2021-03-15] MEDS: methylPREDNISolone SOD 40 mg/ml 1 ml VIAL IV SCH (19:40)
[2021-03-15] MEDS ORDERED: Insulin GLARGINE 100 un/ml 10 ml VIAL SUBCUT SCH (21:00)
[2021-03-16] MEDS: ZOSYN 3.375 GM Q8H per EXTENDED INFUSION IV SCH ×3 (00:46→16:20)
[2021-03-16] MEDS: Warfarin DAILY REMINDER **NOTE FOLLOW UP SCH ×2 (01:38→17:40)
[2021-03-16] MEDS: methylPREDNISolone SOD 40 mg/ml 1 ml VIAL IV SCH ×3 (02:46→17:41)
[2021-03-16 04:18] LABS: Hematocrit 40 % (35-47); Hemoglobin 13.6 g/dL (12.0-16.0); Mean Corpuscular HGB Conc 34 g/dL (31-36); Mean Corpuscular Hemoglobin 32 pg (27-31); Mean Corpuscular Volume 93 fL (80-97); Platelet Count 187 10^3/uL (150-450); Red Cell Distribution Width 14 % (10-15); White Blood Count 13.5 10^3/uL (3.5-10.8)
[2021-03-16 04:30] LABS: INR 3.33 (0.86-1.15)
[2021-03-16 04:35] LABS: ABS Monocytes 0.2 10^3/ul (0-0.8); ABS Neutrophils 5.3 10^3/ul (1.5-7.7); Lymphocyte % 59.1 %
[2021-03-16 04:36] LABS: ALT 37 U/L (7-52); AST 49 U/L (13-39); Alkaline Phosphatase 101 U/L (35-149); Anion Gap 7 mmol/L (2-11); Blood Urea Nitrogen 46 mg/dL (6-24); CO2 Carbon Dioxide 29 mmol/L (22-32); Calcium 8.5 mg/dL (8.6-10.3); Chloride 103 mmol/L (101-111); Globulin 3.1 g/dL (2-4); Glucose 231 mg/dL (70-100); Magnesium 1.5 mg/dL (1.9-2.7); Phosphorus 3.3 mg/dL (2.5-5.0); Potassium 4.1 mmol/L (3.5-5.0); Sodium 139 mmol/L (135-145); Total Protein 6.1 g/dL (6.4-8.9); eGFR CKD-EPI 70.7 (>60)
[2021-03-16 04:50] LABS: Troponin I 0.21 ng/mL (<0.03)
[2021-03-16] MEDS ORDERED: Magnesium Sulfate 4 GM IV IVPB ONE (06:30)
[2021-03-16] MEDS ORDERED: Furosemide 20 mg/2 ml IV VIAL IV SLOW PU ONE ×2 (12:06→13:47)
[2021-03-16 13:34] LABS: Glucose Confirmatory 405 mg/dL (70-100)
[2021-03-16] MEDS ORDERED: Furosemide 20 mg/2 ml IV VIAL ONE (13:42)
[2021-03-16] MEDS ORDERED: Warfarin - No Order Today **NOTE FOLLOW UP ONE (17:00)
[2021-03-16] MEDS: Insulin GLARGINE 100 un/ml 10 ml VIAL SUBCUT SCH (21:25)
[2021-03-16] MEDS ORDERED: Lorazepam PYXIS KEY PRN (22:29)
[2021-03-16] MEDS ORDERED: LORazepam 2 mg VIAL 1 ml IV PUSH ONE (22:29)
[2021-03-17] MEDS: ZOSYN 3.375 GM Q8H per EXTENDED INFUSION IV SCH ×3 (00:24→16:07)
[2021-03-17] MEDS: methylPREDNISolone SOD 40 mg/ml 1 ml VIAL IV SCH ×3 (03:19→20:24)
[2021-03-17 05:16] LABS: Hematocrit 40 % (35-47); Hemoglobin 13.9 g/dL (12.0-16.0); Mean Corpuscular HGB Conc 35 g/dL (31-36); Mean Corpuscular Hemoglobin 32 pg (27-31); Mean Corpuscular Volume 91 fL (80-97); Mean Platelet Volume 8.5 fL (7.4-10.4); Platelet Count 212 10^3/uL (150-450); Red Cell Distribution Width 13 % (10-15)
[2021-03-17 05:31] LABS: Calcium 8.9 mg/dL (8.6-10.3); Magnesium 1.8 mg/dL (1.9-2.7); Potassium 3.4 mmol/L (3.5-5.0)
[2021-03-17 05:32] LABS: INR 3.44 (0.86-1.15)
[2021-03-17] MEDS ORDERED: Magnesium Sulfate IV 1GM/100ML 1 GM/100 ML BAG IV ONE (06:12)
[2021-03-17] MEDS ORDERED: Potassium Chloride LIQUID 20 MEQ/15 ML LIQUID PO ONE (06:12)
[2021-03-17 08:47] LABS: Urine Appearance Clear; Urine Bilirubin Negative (Negative); Urine Blood 1+ (Negative); Urine Color Yellow; Urine Glucose Negative (Negative); Urine Ketones Negative (Negative); Urine Nitrite Negative (Negative); Urine Protein 2+(100 mg/dL) (Negative); Urine Specific Gravity 1.016 (1.002-1.030); Urine Urobilinogen Negative (Negative)
[2021-03-17 08:53] LABS: Urine Bacteria Absent (Absent); Urine Red Blood Cell 1+(3-5/hpf) (Absent); Urine White Blood Cell Trace(0-5/hpf) (Absent)
[2021-03-17] MEDS ORDERED: Furosemide 40 mg/4 ml IV VIAL IV SLOW PU ONE (09:08)
[2021-03-17] MEDS ORDERED: Remdesivir 100 mg Vial 200 MG in NS 0.9% 250 ml 210 ML IV ONE (10:00)
[2021-03-17] MEDS ORDERED: Labetalol IV 5 MG/ML 20 ml VIAL IV PUSH PRN (10:18)
[2021-03-17] MEDS ORDERED: Morphine 2 MG/ML SYRINGE IV ONE (10:19)
[2021-03-17] MEDS: KCL 20 MEQ/100 ML IVPREMIX 20 MEQ/100 ML BAG IV SCH ×2 (12:59→15:16)
[2021-03-17] MEDS: Warfarin DAILY REMINDER **NOTE FOLLOW UP SCH (15:13)
[2021-03-17] MEDS ORDERED: Warfarin - No Order Today **NOTE FOLLOW UP ONE (17:00)
[2021-03-17] MEDS: Morphine 2 MG/ML SYRINGE IV PRN ×2 (18:00→23:30)
[2021-03-17] MEDS ORDERED: Acetaminophen IV 1 GM/100ML 100 ML IV ONE (19:16)
[2021-03-17] MEDS: Insulin GLARGINE 100 un/ml 10 ml VIAL SUBCUT SCH (20:24)
[2021-03-18] MEDS: ZOSYN 3.375 GM Q8H per EXTENDED INFUSION IV SCH ×2 (00:17→08:07)
[2021-03-18] MEDS: Morphine 2 MG/ML SYRINGE IV PRN ×2 (04:02→08:25)
[2021-03-18] MEDS ORDERED: Morphine 2 MG/ML SYRINGE IV ONE (04:29)
[2021-03-18] MEDS: Metoprolol Tartrate 5 mg VIAL 5 ml VIAL (1 mg/ml) IV PRN ×2 (05:22→10:13)
[2021-03-18 05:43] LABS: Hematocrit 38 % (35-47); Hemoglobin 13.4 g/dL (12.0-16.0); Mean Corpuscular HGB Conc 35 g/dL (31-36); Mean Corpuscular Hemoglobin 32 pg (27-31); Mean Corpuscular Volume 90 fL (80-97); Mean Platelet Volume 8.6 fL (7.4-10.4); Platelet Count 183 10^3/uL (150-450); Red Blood Count 4.24 10^6 /uL (3.70-4.87); Red Cell Distribution Width 13 % (10-15); White Blood Count 17.3 10^3/uL (3.5-10.8)
[2021-03-18 05:49] LABS: INR 3.66 (0.86-1.15)
[2021-03-18 06:03] LABS: Calcium 8.7 mg/dL (8.6-10.3); Globulin 3.1 g/dL (2-4); Magnesium 1.6 mg/dL (1.9-2.7); Phosphorus 3.1 mg/dL (2.5-5.0); Potassium 3.7 mmol/L (3.5-5.0); Total Protein 6.1 g/dL (6.4-8.9); eGFR CKD-EPI 76.3 (>60)
[2021-03-18] MEDS ORDERED: KCL 20 MEQ/100 ML IVPREMIX 20 MEQ/100 ML BAG IV ONE (07:29)
[2021-03-18] MEDS ORDERED: Magnesium Sulf 4 GM/100 ML IV 4,000 MG/100 ML BAG IVPB ONE (07:29)
[2021-03-18] MEDS: methylPREDNISolone SOD 40 mg/ml 1 ml VIAL IV SCH (08:25)
[2021-03-18] MEDS ORDERED: Remdesivir 100 mg Vial 100 MG in NS 0.9% 250 ml 230 ML IV SCH (09:00)
[2021-03-18] MEDS ORDERED: Haloperidol 5 mg/ml SDV IV/IM 5 MG/ML AMP IV SLOW PU PRN (09:16)
[2021-03-18] MEDS ORDERED: Tocilizumab 200 MG/10 ML 10 ml VIAL IVPB ONE (10:24)
[2021-03-18] MEDS ORDERED: LORazepam 2 mg VIAL 1 ml IV PUSH PRN ×2 (10:27→15:12)
[2021-03-18] MEDS ORDERED: Lorazepam PYXIS KEY ONE (10:32)
[2021-03-18] MEDS ORDERED: LORazepam 2 mg VIAL 1 ml ONE (10:33)
[2021-03-18] MEDS ORDERED: Tocilizumab** 800 MG in NS 0.9% 100 ml BAG 60 ML IVPB ONE (12:00)
[2021-03-18] MEDS ORDERED: Pantoprazole VIAL 40 MG VIAL IV SCH (12:00)
[2021-03-18] MEDS ORDERED: Morphine 2 MG/ML SYRINGE IV PRN (15:12)
[2021-03-18] MEDS ORDERED: Atropine 1% (ORAL/SL) 15 ML BTL SL PRN (15:15)
[2021-03-18] MEDS ORDERED: Ondansetron 4 mg VIAL 2 MG/ML 2 ml VIAL IV PRN (15:15)
[2021-03-18] MEDS ORDERED: Morphine PCA ADULT 5 MG/ML 30 ML PCA SCH (15:15)
[2021-03-18 16:59] VITALS: BP 126/82
[2021-03-18] MEDS ORDERED: Warfarin - No Order Today **NOTE FOLLOW UP ONE (17:00)
[2021-03-19] MEDS ORDERED: methylPREDNISolone SOD 40 mg/ml 1 ml VIAL IV SCH (09:00)
== END 2021-03-18 21:32 | disposition expired | DRG 177 ==
LOC: ED 06:25 → EDHOLD 10:25 → ICU 10:58
PROVIDERS: ADMIT Internal Medicine; ATTEND Internal Medicine